=== PATIENT | female | born 1955 | race Caucasian/White ===

== ENCOUNTER 2017-12-13 21:56 | Emergency (ER) | payer OTHER, SELFPAY ==
[2017-12-13 22:13] VITALS: BP 160/105; PULSE 91; RESP 18; TEMP 36.6; O2SAT 95
--- NOTE | 2017-12-14 00:23 | ED_ITS ---
HPI - Abdominal Pain General Chief Complaint: Abdominal Pain Stated Complaint: Acute Abdominal Pain Time Seen by Provider: 12/14/17 00:15 Source: patient Mode of arrival: ambulatory Limitations: no limitations History of Present Illness HPI narrative: The patient is a 62-year-old female who presents with upper abdominal pain and right upper quadrant pain. She has been nauseated she has vomited 4 times. Pain is been ongoing since yesterday. No fever. Pain radiates around to her back on the right side. No diarrhea. She denies any chest pain. MD complaint: abdominal pain Related Data Home Medications Medication Instructions Recorded Confirmed [B COMPLEX] #0 02/25/16 [BIOTIN] #0 02/25/16 [CIMZIA] #0 02/25/16 [CRANBERRY] #0 02/25/16 [MILK THISTLE] #0 02/25/16 [OMEGA 3 6 9 ] #0 02/25/16 hydroxychloroquine [Plaquenil] 200 mg PO BID #0 02/25/16 leflunomide [Arava] 10 mg PO #0 02/25/16 levothyroxine [Synthroid] 125 mcg PO QAM #30 tab 02/25/16 loratadine 10 mg PO QDAY #0 tab 02/25/16 meloxicam [Mobic] 15 mg PO AMCC #30 tab 02/25/16 multivitamin [Multiple Vitamins] 1 tab PO QDAY #0 tab 02/25/16 omeprazole magnesium [Prilosec OTC] 20 mg PO #0 02/25/16 sulfasalazine 1,500 Q DAY #0 02/25/16 tramadol 50 mg PO QID #0 02/25/16 [cimzia] #0 03/21/17 [cranberry extract] #0 03/21/17 [milk thistle] #0 03/21/17 biotin #0 03/21/17 calcium carbonate-vitamin D3 1 sgl PO #0 03/21/17 [Calcium 600 with Vitamin D3] diclofenac sodium [Voltaren] 1 javy TOPICAL #0 03/21/17 estradiol [Yuvafem] 10 mcg VAGINAL #0 03/21/17 hydroxychloroquine 200 mg PO AMCC #0 03/21/17 leflunomide [Arava] 20 mg PO #0 03/21/17 levothyroxine [Synthroid] 0.125 mg PO QDAY #0 03/21/17 loratadine [Claritin] 10 mg PO QDAY #0 03/21/17 meloxicam 15 mg PO #0 03/21/17 multivitamin [Multiple Vitamins] 1 tab PO QDAY #0 03/21/17 omega 0-zon-nfl-fish oil [Omera] 1 ea PO #0 03/21/17 omeprazole 20 mg PO QDAY #0 03/21/17 simvastatin 20 mg PO HS #0 03/21/17 sulfasalazine [Azulfidine] #0 03/21/17 tramadol 0 mg PO Q6HP #0 03/21/17 vitamin B complex [B 1 tab PO QDAY #0 03/21/17 Complex-Vitamin B12] Previous Rx's Medication Instructions Recorded albuterol sulfate [Ventolin HFA] 2 puff INH QID #1 ea 04/02/17 levofloxacin [Levaquin] 750 mg PO QDAY #7 tab 04/02/17 Allergies Allergy/AdvReac Type Severity Reaction Status Date / Time methotrexate [METHOTREXATE] Allergy Unknown cough Verified 12/14/17 02:25 Review of Systems Review of Systems GENERAL: Denies chills, fatigue, malaise, fever, sweats, travel HEENT: Denies sinus pain, ear pain, sore throat, difficulty swallowing, neck pain RESPIRATORY: Denies dyspnea, cough, wheezing, hemoptysis, sputum. CARDIOVASCULAR: Denies chest pain, palpitations, orthopnea, edema GASTROINTESTINAL: See HPI : Denies dysuria, frequency, incontinence, hematuria, urinary retention, flank pain. MUSCULOSKELETAL: Denies weakness, joint pain, or bony pain SKIN: No rash, no erythema, no pruritus NEUROLOGIC: Denies weakness, dizziness, headache, numbness, change in speech, confusion PSYCHIATRIC: No concerning psychosocial issues. 12 point review of systems is negative except for those stated above and HPI PFSH Medical History Hypothyroid (Acute) Surgical History Status post breast reduction Status post hysterectomy Family History Brother Age: 65 Gout Brother Age: 64 Gout Brother Age: 62 Cancer Social History Smoking Status: Former smoker Exam Initial Vital Signs Initial Vital Signs: Vital Signs Temperature 97.8 F 12/13/17 22:13 Pulse Rate 91 H 12/13/17 22:13 Respiratory Rate 18 12/13/17 22:13 Blood Pressure 160/105 H 12/13/17 22:13 Pulse Oximetry 95 12/13/17 22:13 GENERAL: Appears in pain moaning HEENT: Head atraumatic,EOMI, pupils reactive, face symmetric, dry mucous membranes CARDIOVASCULAR: Regular rate and rhythm without murmurs, rubs or gallops. RESPIRATORY: Breath sounds equal bilaterally, no wheezes rales or rhonchi. ABDOMEN: Soft, tender epigastric area and right upper quadrant with positive Krishnan sign no guarding no rebound no lower abdominal pain. : No CVA tenderness EXTREMITIES: Normal range of motion, no clubbing or edema. Neurovascularly intact NEUROLOGICAL: Alert and oriented x4.Normal gait and speech. Cranial nerves II through XII grossly intact. SKIN: Warm, dry, no laceration, no petechiae, no rashes or lesions. Course Orders Ordered: ED Orders 12/14/17 00:02 Complete Blood Count AUTO DIFF Stat Comprehensive Metabolic Panel Stat Lipase Stat 12/14/17 00:24 US abdomen complete Stat 12/14/17 01:54 Urine Microscopic Stat Discontinued Medications Sodium Chloride (Normal Saline 0.9%) 1,000 mls @ 1,000 mls/hr IV CONT MARY Last Infusion: 12/14/17 01:30 Dose: 1,000 mls/hr Admin: 12/14/17 00:30 Dose: 1,000 mls/hr Sodium Chloride (Normal Saline 0.9%) 1,000 mls @ 200 mls/hr IV CONT MARY Last Admin: 12/14/17 02:15 Dose: 200 mls/hr Ketorolac Tromethamine (Toradol) 30 mg IV NOW ONE Stop: 12/14/17 00:24 Last Admin: 12/14/17 00:30 Dose: 30 mg Morphine Sulfate (Morphine) 2 mg IV NOW ONE Stop: 12/14/17 03:43 Last Admin: 12/14/17 03:45 Dose: 2 mg Ondansetron HCl (Zofran) 4 mg IV NOW ONE Stop: 12/14/17 00:24 Last Admin: 12/14/17 00:30 Dose: 4 mg Pantoprazole Sodium (Protonix) 40 mg IV NOW ONE Stop: 12/14/17 00:24 Last Admin: 12/14/17 00:32 Dose: 40 mg Consultations Consultation #1: Dr. Mijares, [facility] has been updated on symptoms and test results. Common bile duct normal in ultrasound however significantly elevated lipase. Patient will definitely need an ERCP. Time: 02:12 Consultation #2: [place] physician has been updated on test results symptoms in surgery recommendations of an ERCP. He has made arrangements for patient to be transferred to [place]. Dr. Atwood accepting physician Time: 02:38 Vital Signs - 8 hr 12/14/17 00:35 12/14/17 01:55 12/14/17 04:00 Pulse Rate 72 79 85 Respiratory Rate 18 12 25 H Blood Pressure [Left Arm] 176/85 H 167/94 H 154/89 H Pulse Oximetry 99 98 97 12/14/17 04:52 Pulse Rate 83 Respiratory Rate 12 Blood Pressure [Left Arm] 164/85 H Pulse Oximetry 98 MDM - Abdominal Pain Medical Records Attestation: I reviewed the patient's medical records. Lab Data Attestation: I reviewed the patient's lab results. Result diagrams: 12/14/17 00:02 12/14/17 00:02 Lab Results 12/14/17 12/14/17 12/14/17 Range/Units 00:02 00:02 01:54 WBC 8.1 (4.5-11.0) X10^3/uL RBC 4.57 (4.0-5.2) X10^6/uL Hgb 14.0 (12.0-16.0) g/dL Hct 41.4 (36-46) % MCV 90.8 (80-100) fL MCH 30.6 (26-34) PG MCHC 33.7 (30-36) % RDW 13.9 (11.6-14.8) % Plt Count 243 (150-400) X10^3/uL Neut % (Auto) 74.6 (50-75) % Lymph % (Auto) 17.5 L (25-40) % [place] % (Auto) 7.3 (3-14) % Eos % (Auto) 0.4 L (2-4) % Baso % (Auto) 0.2 (0-2) % Neut # (Auto) 6100 H (1406-8368) /uL Sodium 142 (137-145) mmol/L Potassium 3.3 L (3.4-5.1) mmol/L Chloride 104 (98-107) mmol/L Carbon Dioxide 27 (22-32) mmol/L BUN 10 (7-17) mg/dL Creatinine 0.70 (0.52-1.04) mg/dL Estimated GFR > 60.0 (>60) mL/min BUN/Creatinine Ratio 14.3 (6-22) Glucose 124 H (80-110) mg/dL Calcium 10.0 (8.4-10.2) mg/dL Total Bilirubin 2.3 H (0.2-1.3) mg/dL AST 277 H (14-36) IU/L ALT 230 H (9-52) IU/L Alkaline Phosphatase 122 (38-126) U/L Total Protein 7.7 (6.3-8.2) g/dL Albumin 4.6 (3.5-5.0) g/dL Globulin 3.1 (1.7-4.1) g/dL Albumin/Globulin Ratio 1.5 (1.0-2.8) Lipase 9093 H (23-300) U/L Urine RBC None seen (0-5/HPF) Urine WBC None seen (0-5/HPF) Ur Squamous Epith Cells 1-5 /hpf Urine Bacteria Occasional (0-1) (None) Ur Culture Indicated? Cult not indicated Micro UA Comment Not Reportable Point of care testing: Urine Dip Bedside Urine Glucose Negative Bedside Urine Bilirubin - Negative Bedside Urine Ketone +++ 80 Urine Specific [place] 1.015 Bedside Urine Occult Blood - Negative Bedside Urine pH 8.5 Bedside Urine Protein +/- 15 Bedside Urine Urobilinogen - Negative Bedside Urine Nitrite - Negative Bedside Urine Leukocytes - Negative Esterase Imaging Data US - abdomen: Radiologist's impression: Negative for report: Biliary system: Common bile duct diameter and upper normal range at 7 mm. Portal veins visualized segment patent. Gallbladder Size: Normal, stones present. Of gallbladder sludge. All wall thickness: Approximately 5 mm, thickened Pericholecystic fluid: None Sonographic Krishnan sign positive The pancreas: Not seen Impression: Cholelithiasis. Gallbladder wall thickening. Reportedly positive sonographic Krishnan sign. Please correlate with early cholecystitis. Hepatic steatosis a statistically versus other hepatocellular process. Pancreas not optimally seen. MDM Narrative Medical decision making narrative: Patient is afebrile without leukocytosis. However she does have elevated bilirubin and lipase suggestive of choledocholithiasis. Patient being transferred to [facility] for ERCP and further management. Discharge Plan Departure Patient Disposition: [facility] Clinical Impression: Choledocholithiasis Discharge Date/Time: 12/14/17 05:20 Interventions: ED Discharge Assessment Last Done: 12/14/17 05:19 Prescriptions: No Action leflunomide [Arava] 10 MG tablet 10 mg PO Qty: 0 RF: 0 [B COMPLEX] Qty: 0 RF: 0 [BIOTIN] Qty: 0 RF: 0 [CIMZIA] Qty: 0 RF: 0 [CRANBERRY] Qty: 0 RF: 0 loratadine 10 MG tablet 10 mg PO QDAY Qty: 0 RF: 0 multivitamin [Multiple Vitamins] 1 EACH tablet 1 tab PO QDAY Qty: 0 RF: 0 meloxicam [Mobic] 15 MG tablet 15 mg PO AMCC Qty: 30 RF: 0 [MILK THISTLE] Qty: 0 RF: 0 [OMEGA 3 6 9 ] Qty: 0 RF: 0 sulfasalazine 500 MG tablet 1,500 Q DAY Qty: 0 RF: 0 hydroxychloroquine [Plaquenil] 200 MG tablet 200 mg PO BID Qty: 0 RF: 0 omeprazole magnesium [Prilosec OTC] 20 MG tablet,delayed release (DR/EC) 20 mg PO Qty: 0 RF: 0 tramadol 50 MG tablet 50 mg PO QID Qty: 0 RF: 0 levothyroxine [Synthroid] 125 MCG tablet 125 mcg PO QAM Qty: 30 RF: 0 vitamin B complex [B Complex-Vitamin B12] 1 EACH tablet 1 tab PO QDAY Qty: 0 RF: 0 biotin 2,500 MCG capsule Qty: 0 RF: 0 calcium carbonate-vitamin D3 [Calcium 600 with Vitamin D3] 600 MG/200 IU capsule 1 sgl PO Qty: 0 RF: 0 [cimzia] Qty: 0 RF: 0 hydroxychloroquine 200 MG tablet 200 mg PO AMCC Qty: 0 RF: 0 diclofenac sodium [Voltaren] 1 % gel 1 javy Topical Qty: 0 RF: 0 [cranberry extract] Qty: 0 RF: 0 leflunomide [Arava] 20 MG tablet 20 mg PO Qty: 0 RF: 0 levothyroxine [Synthroid] 125 MCG tablet 0.125 mg PO QDAY Qty: 0 RF: 0 loratadine [Claritin] 10 MG tablet 10 mg PO QDAY Qty: 0 RF: 0 multivitamin [Multiple Vitamins] 1 EACH tablet 1 tab PO QDAY Qty: 0 RF: 0 meloxicam 15 MG tablet 15 mg PO Qty: 0 RF: 0 omega 4-xoa-onu-fish oil [Omera] 1 EACH capsule 1 ea PO Qty: 0 RF: 0 [milk thistle] Qty: 0 RF: 0 sulfasalazine [Azulfidine] 500 MG tablet Qty: 0 RF: 0 simvastatin 20 MG tablet 20 mg PO HS Qty: 0 RF: 0 omeprazole 20 MG capsule,delayed release(DR/EC) 20 mg PO QDAY Qty: 0 RF: 0 tramadol 50 MG tablet PO Q6HP Qty: 0 RF: 0 estradiol [Yuvafem] 10 MCG tablet 10 mcg Vaginal Qty: 0 RF: 0 albuterol sulfate [Ventolin HFA] 90 MCG/PUFF HFA aerosol inhaler 2 puff INH QID Qty: 1 RF: 0 levofloxacin [Levaquin] 750 MG tablet 750 mg PO QDAY Qty: 7 RF: 0
--- NOTE | 2017-12-14 00:24 | DI.US.S_ITS ---
PROCEDURE: US ABDOMEN COMPLETE INDICATIONS: ruq pain TECHNIQUE: Real-time scanning was performed of the abdominal and retroperitoneal organs, with image documentation. COMPARISON: None. FINDINGS: Preliminary report by shift production associate radiology Liver: Liver is normal in size and homogeneous in echotexture. Gallbladder: Gallbladder contains dependent stones including a 1 cm stone in the gallbladder neck that does not move. Gallbladder wall is thickened at 5 mm. A positive Krishnan sign is reported. No pericholecystic free fluid. Biliary ducts: Intrahepatic bile ducts are non-dilated. Extrahepatic bile duct caliber measures 7 mm. Normal is 6-7 mm or less in diameter, or 10 mm or less post-cholecystectomy. Pancreas: Visualized portions of the pancreas are sonographically normal. The tail is obscured. Spleen: Spleen is normal in size and homogeneous in echotexture. Kidneys: Kidneys are normal in size and echotexture. Right kidney measures 11.1 cm long; left kidney measures 11.6 cm long. No hydronephrosis or nephrolithiasis. No solid masses. Aorta: Mid and distal aorta are obscured by bowel gas Iliacs: Iliac vessels are obscured by bowel gas IVC: Not visualized Miscellaneous: No free abdominal fluid. IMPRESSION: 1. Cholelithiasis with probable impacted stone in the gallbladder neck with findings suspect for cholecystitis, clinical correlation recommended. 2. Considerable bowel gas obscures the tail of pancreas, aorta and iliac vessels and IVC. Findings are concordant with the preliminary report. Dictated by: César Funes M.D. on 12/14/2017 at 8:22 Approved by: César Funes M.D. on 12/14/2017 at 8:27
[2017-12-14] MEDS: KETOROLAC 60 MG/2 ML VIAL 30 MG IV (00:30)
[2017-12-14] MEDS: ONDANSETRON 4 MG/2 ML INJ IV (00:30)
[2017-12-14] MEDS: SODIUM CHLORIDE 0.9% 1,000 ML 1000 ML IV (00:30)
[2017-12-14] MEDS: PANTOPRAZOLE 40 MG VIAL IV (00:32)
[2017-12-14 00:35] VITALS: BP 176/85; PULSE 72; RESP 18; O2SAT 99
[2017-12-14 00:35] LABS: Alanine Aminotransferase 230 IU/L (9-52); Albumin 4.6 g/dL (3.5-5.0); Albumin Globulin Ratio 1.5 (1.0-2.8); Alkaline Phosphatase 122 U/L (38-126); Aspartate Aminotransferase 277 IU/L (14-36); BUN Creatinine Ratio 14.3 (6-22); Bilirubin Total 2.3 mg/dL (0.2-1.3); Blood Urea Nitrogen 10 mg/dL (7-17); Carbon Dioxide 27 mmol/L (22-32); Chloride 104 mmol/L (98-107); Estimated Glomerular Filt Rate > 60.0 mL/min (>60); Globulin 3.1 g/dL (1.7-4.1); Glucose 124 mg/dL (80-110); HEMOLYSIS < 15 (0-50); Potassium 3.3 mmol/L (3.4-5.1); Sodium 142 mmol/L (137-145); Total Protein 7.7 g/dL (6.3-8.2)
[2017-12-14 00:37] LABS: Add Manual Diff / Slide Review NO; Basophils Percent Auto 0.2 % (0-2); Eosinophils Percent Auto 0.4 % (2-4); Hematocrit 41.4 % (36-46); Lymphocytes Percent Auto 17.5 % (25-40); Mean Corpuscular HGB Conc 33.7 % (30-36); Mean Corpuscular Hemoglobin 30.6 PG (26-34); Mean Corpuscular Volume 90.8 fL (80-100); Monocytes Percent Auto 7.3 % (3-14); Neutrophils Absolute Auto 6100 /uL (3000-5900); Neutrophils Percent Auto 74.6 % (50-75); Platelet Count 243 X10^3/uL (150-400); Red Blood Cell Count 4.57 X10^6/uL (4.0-5.2); Red Cell Distribution Width 13.9 % (11.6-14.8); White Blood Cell Count 8.1 X10^3/uL (4.5-11.0)
[2017-12-14 00:54] LABS: Lipase 9093 U/L (23-300)
[2017-12-14 01:55] VITALS: BP 167/94; PULSE 79; RESP 12; O2SAT 98
[2017-12-14] MEDS: SODIUM CHLORIDE 0.9% 1,000 ML 200 ML IV (02:15)
[2017-12-14 02:47] LABS: RBC Urine None Seen (0-5/HPF); WBC Urine None Seen (0-5/HPF)
[2017-12-14 03:01] LABS: Bacteria Urine Occasional (0-1); Squamous Epithelial Cell Urine 1-5 /HPF
[2017-12-14 03:02] LABS: Culture Indicated Urine Cult Not Indicated
[2017-12-14] MEDS: MORPHINE 2 MG/ML INJ IV (03:45)
[2017-12-14 04:00] VITALS: BP 154/89; PULSE 85; RESP 25; O2SAT 97
[2017-12-14 04:52] VITALS: BP 164/85; PULSE 83; RESP 12; O2SAT 98
== END 2017-12-14 05:20 | disposition short-term general hospital (02) ==
PROVIDERS: Emergency Provider Emergency Medicine; Family Provider Family Medicine; PCP Family Medicine
DX: K80.50 Calculus of bile duct without cholangitis or cholecystitis without obstruction (principal)
CPT/HCPCS: 76700; 80053; 81003; 81015; 83690; 85025; 96361; 96374; 96375; 99283; 99284; C9113; J1885; J2270; J2405

== ENCOUNTER → 2018-09-11 10:30 | Outpatient (CLI) | payer OTHER, SELFPAY ==
--- NOTE | 2018-09-11 10:36 | DI.CT.S_ITS ---
PROCEDURE: CT CHEST W CON INDICATIONS: LUNG NODULES TECHNIQUE: After the administration of intravenous contrast, 5 mm thick sections acquired from the pulmonary apices to the posterior costophrenic angles. 7 mm thick coronal and sagittal MIP reformats were acquired. For radiation dose reduction, the following was used: automated exposure control, adjustment of mA and/or kV according to patient size. COMPARISON: [facility], CT, THORAX WITH CONTRAST, 07/06/2017, 10:39. [facility], US, US ABDOMEN COMPLETE, 12/14/2017, 1:00. FINDINGS: Image quality: Excellent. Lungs and pleura: The previously described left upper lobe groundglass opacity is not seen on the current study. On the 2018 CT examination, there is a mild degree of atelectasis seen involving the posterior left upper lobe, which is no longer seen. No acute air space opacities. No pleural effusions or pneumothorax. Central and peripheral airways are patent and normal in caliber. Mediastinum: A prominent right pericardial fat pad is again noted. Heart size is normal. No pericardial effusion. No mediastinal or hilar adenopathy by size criteria. Thoracic aorta and central pulmonary arteries are normal in size. Esophagus is normal in caliber. No hiatal hernia. Bones and chest wall: No suspicious bony lesions. No vertebral body compression fractures. No axillary or supraclavicular adenopathy by size criteria. Thyroid gland demonstrates no significant CT abnormality. Abdomen: Cholecystectomy clips are seen. Visualized upper abdominal solid organs appear normal. Upper abdominal bowel loops are normal in caliber. IMPRESSION: Resolution of the previously seen left upper lobe groundglass opacity. Improved atelectasis within the left upper lobe. Incidental note is made of: Prominent right pericardial fat pad Cholecystectomy Dictated by: Efraín Saavedra M.D. on 09/11/2018 at 11:19 Approved by: Efraín Saavedra M.D. on 09/11/2018 at 11:22
== END ==
PROVIDERS: PCP Family Medicine; Visit Provider Internal Medicine Pulmonary Disease
DX: R91.8 Other nonspecific abnormal finding of lung field (principal); J98.11 Atelectasis; Z90.49 Acquired absence of other specified parts of digestive tract
CPT/HCPCS: 71260; Q9967

== ENCOUNTER → 2020-08-25 09:28 | Outpatient (CLI) | payer OTHER, SELFPAY ==
[2020-08-25] MEDS: COVID-19 VACC #1, MRNA(MOD) 100 MCG/0.5 ML VIAL IM (09:35)
== END ==
PROVIDERS: PCP Family Medicine; Visit Provider Internal Medicine
DX: Z23 Encounter for immunization (principal)
CPT/HCPCS: 0011A; 91301

== ENCOUNTER → 2020-09-22 14:07 | Outpatient (CLI) | payer OTHER, SELFPAY ==
[2020-09-22] MEDS: COVID-19 VACC #2, MRNA(MOD) 100 MCG/0.5 ML VIAL IM (14:12)
== END ==
PROVIDERS: PCP Family Medicine; Visit Provider Internal Medicine
DX: Z23 Encounter for immunization (principal)
CPT/HCPCS: 0012A; 91301

== ENCOUNTER → 2021-03-10 11:10 | Outpatient (CLI) | payer OTHER, SELFPAY ==
--- NOTE | 2021-03-10 | DI.RAD.S_ITS ---
PROCEDURE: XR DEXA AXIAL SKELETON INDICATIONS: Encounter for screening for osteoporosis COMPARISON: None. FINDINGS: This blank DEXA report has been sent in error by the PACS system. The correct and complete report will be forthcoming in 1-2 days. Thank you for your patience and understanding. Dictated by: Savanna Narayanan MD, PhD on 03/10/2021 at 12:46 Approved by: Savanna Narayanan MD, PhD on 03/10/2021 at 12:46
== END ==
PROVIDERS: PCP Internal Medicine; Referring Provider Internal Medicine; Visit Provider Internal Medicine
DX: Z13.820 Encounter for screening for osteoporosis (principal); Z78.0 Asymptomatic menopausal state; M06.9 Rheumatoid arthritis, unspecified; Z87.891 Personal history of nicotine dependence
CPT/HCPCS: 77080

== ENCOUNTER → 2021-04-01 08:15 | Outpatient (CLI) | payer OTHER, SELFPAY ==
[2021-04-01 09:03] LABS: COVID19 -Nasal RAPID Negative (Negative)
== END ==
PROVIDERS: PCP Internal Medicine; Visit Provider Physician Assistant
DX: Z20.822 Contact with and (suspected) exposure to COVID-19 (principal)
CPT/HCPCS: 87635

== ENCOUNTER → 2022-04-19 17:22 | Outpatient (CLI) | payer OTHER, MEDICARE, SELFPAY ==
--- NOTE | 2022-04-19 17:37 | DI.RAD.S_ITS ---
PROCEDURE: XR FOOT RT MIN 3V INDICATIONS: right foot injury TECHNIQUE: Three views of the foot were acquired. COMPARISON: None. FINDINGS: Bones: No fractures or dislocations. Degenerative change 1st MTP. Moderate plantar calcaneal spur. No osteophyte fracture No suspicious bony lesions. Soft tissues: No tibiotalar joint effusion. Achilles tendon appears normal. IMPRESSION: Intact right foot with degenerative change at the 1st MTP. Dictated by: Tiffany Staley M.D. on 04/19/2022 at 19:18 Approved by: Tiffany Staley M.D. on 04/19/2022 at 19:18
== END ==
PROVIDERS: PCP Internal Medicine; Referring Provider Nurse Practitioner Family; Visit Provider Nurse Practitioner Family
DX: S99.921A Unspecified injury of right foot, initial encounter (principal); X58.XXXA Exposure to other specified factors, initial encounter
CPT/HCPCS: 73630

== ENCOUNTER → 2022-11-06 16:02 | Outpatient (CLI) | payer OTHER, SELFPAY ==
--- NOTE | 2022-11-06 16:03 | DI.MRI.S_ITS ---
PROCEDURE: MR HAND RT WO CON INDICATIONS: RIGHT HAND PAIN TECHNIQUE: Noncontrast coronal T1 spin echo and T2 fast spin echo with fat saturation, axial proton density fast spin echo and T2 fast spin echo with fat saturation, sagittal T1 spin echo and STIR through the hand and fingers. COMPARISON: [facility], CR, XR HAND 3VW RT, 01/26/2016, 9:55. FINDINGS: Image quality: Excellent. Bones: No acute trabecular bone injury or fracture. Multiple small well-defined foci of [id number] signal with associated [id number] signal are seen throughout the carpal bones and radial styloid, and at the 1st metacarpal base and 3rd metacarpal head, which could represent small chronic erosions. No acute osteitis is seen. Moderate arthritic changes are seen at the 1st carpometacarpal joint and there are mild arthritic changes at the 1st metacarpophalangeal joint and throughout the interphalangeal joints of the fingers. Soft tissues: Visualized muscles demonstrate normal bulk and internal signal. No intramuscular masses identified. A thin lobular ganglion cyst at the volar radial aspect of the radiocarpal joint measures up to 20 x 7 x 7 mm. Small amount of fluid is seen in the distal radioulnar joint. Otherwise, no significant joint effusion or synovial hypertrophy is seen. Mild tenosynovitis is seen involving the extensor carpi ulnaris tendon as well as the extensor carpi radialis brevis and longus tendons. The flexor and extensor tendons in the hand appear to be intact. IMPRESSION: 1. Multiple small well-demarcated foci of abnormal signal in the wrist and the 3rd metacarpal head are nonspecific but may represent chronic osseous erosions. No definite active erosion or acute osteitis is seen. No significant joint effusion is seen. 2. Mild tenosynovitis of the 2nd and 6th extensor compartment tendons in the wrist. 3. Lobular ganglion cyst is noted at the volar radial aspect of the wrist. Approved by: Vin Arambula M.D. on 11/07/2022 at 10:06
== END ==
PROVIDERS: PCP Internal Medicine; Referring Provider Internal Medicine; Visit Provider Internal Medicine
DX: M65.841 Other synovitis and tenosynovitis, right hand (principal); M67.431 Ganglion, right wrist; M79.641 Pain in right hand
CPT/HCPCS: 73218

== ENCOUNTER → 2023-04-04 11:25 | Outpatient (CLI) | payer OTHER, SELFPAY | PROVIDERS: Family Provider Internal Medicine; PCP Internal Medicine; Visit Provider Physician Assistant | DX: R30.0 Dysuria (principal) | CPT/HCPCS: 87086 ==

== ENCOUNTER 2023-04-06 17:49 | Emergency (ER) | payer OTHER, SELFPAY ==
[2023-04-06] VITALS (9 sets, daily range): BP systolic 163–227; BP diastolic 83–102; PULSE 55–83; RESP 14–22; TEMP 36.7; O2SAT 95–98; BMI 37.8
--- NOTE | 2023-04-06 18:14 | DI.RAD.S_ITS ---
PROCEDURE: XR CHEST 1V INDICATIONS: chest pain TECHNIQUE: One view of the chest was acquired. COMPARISON: , CR, XR CHEST 2 VIEWS, 11/26/2022, 11:57. [facility], CR, CHEST 2 VIEW, 04/02/2017, 13:24. FINDINGS: Surgical changes and devices: None. Lungs and pleura: Patchy right basilar opacity. Mediastinum: Mediastinal contours appear normal. Heart size is normal. Bones and chest wall: No suspicious bony lesions. Overlying soft tissues appear unremarkable. IMPRESSION: Persistent right basilar opacity. CT chest is recommended for further evaluation. Dictated by: Concepción Lara M.D. on 04/06/2023 at 19:00 Approved by: Concepción Lara M.D. on 04/06/2023 at 19:02
[2023-04-06 18:33] LABS: Add Manual Diff / Slide Review NO; Basophils Absolute Auto 0 /uL (0-100); Basophils Percent Auto 0.4 % (0-2); Eosinophils Absolute Auto 200 /uL (0-450); Eosinophils Percent Auto 2.4 % (2-4); Hematocrit 44.6 % (36-46); Hemoglobin 14.9 g/dL (12.0-16.0); Lymphocytes Absolute Auto 3100 /uL (1100-4500); Lymphocytes Percent Auto 37.2 % (25-40); Mean Corpuscular HGB Conc 33.4 % (30-36); Mean Corpuscular Hemoglobin 30.3 PG (26-34); Mean Corpuscular Volume 90.8 fL (80-100); Monocytes Absolute Auto 600 /uL (0-900); Monocytes Percent Auto 7.6 % (3-14); Neutrophils Absolute Auto 4400 /uL (1500-7000); Neutrophils Percent Auto 52.4 % (50-75); Platelet Count 242 X10^3/uL (150-400); Red Blood Cell Count 4.91 X10^6/uL (4.0-5.2); Red Cell Distribution Width 13.7 % (11.6-14.8); White Blood Cell Count 8.3 X10^3/uL (4.5-11.0)
[2023-04-06 18:37] LABS: INR 0.9 (0.9-1.3); Prothrombin Time 10.4 SECONDS (10.1-12.7)
[2023-04-06 18:40] LABS: PTT Partial Thromboplastin Tim 29 SECONDS (26-36)
[2023-04-06 18:42] LABS: Alanine Aminotransferase 66 IU/L (<35); Albumin 4.4 g/dL (3.5-5.0); Albumin Globulin Ratio 1.5 (1.0-2.8); Alkaline Phosphatase 90 U/L (38-126); Aspartate Aminotransferase 47 IU/L (14-36); BUN Creatinine Ratio 21.1 (6-22); Bilirubin Total 0.6 mg/dL (0.2-1.3); Blood Urea Nitrogen 15 mg/dL (7-17); Calcium 10.4 mg/dL (8.4-10.2); Carbon Dioxide 29 mmol/L (22-32); Chloride 104 mmol/L (98-107); Creatine Kinase 61 U/L (30-135); Estimated Glomerular Filt Rate > 60 mL/min (>60); Glucose 103 mg/dL (80-110); HEMOLYSIS < 15 (0-50); Lipase 111 U/L (23-300); Magnesium 2.1 mg/dL (1.6-2.3); Potassium 4.1 mmol/L (3.4-5.1); Sodium 139 mmol/L (137-145); Total Protein 7.4 g/dL (6.3-8.2)
[2023-04-06 18:53] LABS: Troponin I < 0.012 ng/mL (0.01-0.034)
--- NOTE | 2023-04-06 19:33 | ED.GENADULT ---
HPI - General Adult General Chief complaint: Hypertension Stated complaint: Head ache left side ache BP 170/100 Time Seen by Provider: 04/06/23 19:33 Source: patient Mode of arrival: Ambulatory History of Present Illness HPI narrative: Patient with chronic rheumatoid arthritis on biologic therapy comes to the ED with 2 weeks of right upper quadrant pain. She says it is quite reminiscent of her previous gallbladder pain but she had a cholecystectomy about 2 years ago. She is no trauma that she can think of. She is not had fever nor does she feel ill she just has very significant right upper quadrant pain that seems to be getting worse and worse over the past 2 weeks. She is noticed that her blood pressure is quite high today and that is causing a headache as far she can tell. No nausea vomiting or diarrhea. A little bit of dysuria yesterday but she says she had an outpatient UA that was normal. No diarrhea. No cough or chest symptoms otherwise. No cardiac disease. Related Data Home Medications Medication Instructions Recorded Confirmed [B COMPLEX] ##0 02/25/16 04/04/23 [BIOTIN] ##0 02/25/16 04/04/23 [CIMZIA] ##0 02/25/16 04/04/23 [CRANBERRY] ##0 02/25/16 04/04/23 [MILK THISTLE] ##0 02/25/16 04/04/23 [OMEGA 3 6 9 ] ##0 02/25/16 04/04/23 hydroxychloroquine 200 mg tablet 200 mg PO BID ##0 02/25/16 04/04/23 (Plaquenil) leflunomide 10 mg tablet (Arava) 10 mg PO ##0 02/25/16 04/04/23 levothyroxine 125 mcg tablet 125 mcg PO QAM #30 tabs 02/25/16 04/04/23 (Synthroid) loratadine 10 mg tablet 10 mg PO QDAY #0 tabs 02/25/16 04/04/23 meloxicam 15 mg tablet (Mobic) 15 mg PO AMCC #30 tabs 02/25/16 04/04/23 multivitamin (Multiple Vitamins 1 tab PO QDAY #0 tabs 02/25/16 04/04/23 tablet) omeprazole magnesium 20 mg 20 mg PO ##0 10/07/16 11/15/23 tablet,delayed release (Prilosec OTC) sulfasalazine 500 mg tablet 1,500 Q DAY ##0 02/25/16 04/04/23 tramadol 50 mg tablet 50 mg PO QID ##0 02/25/16 04/04/23 [cimzia] ##0 03/21/17 04/04/23 [cranberry extract] ##0 03/21/17 04/04/23 [milk thistle] ##0 03/21/17 04/04/23 biotin 2,500 mcg capsule ##0 03/21/17 04/04/23 calcium carbonate 600 mg-vitamin 1 sgl PO ##0 03/21/17 04/04/23 D3 10 mcg (400 unit) capsule (Calcium 600 with Vitamin D3) diclofenac sodium 1 % topical gel 1 javy topical ##0 03/21/17 04/04/23 (Voltaren) estradiol 10 mcg vaginal tablet 10 mcg vaginal ##0 03/21/17 04/04/23 (Yuvafem) hydroxychloroquine 200 mg tablet 200 mg PO AMCC ##0 03/21/17 04/04/23 leflunomide 20 mg tablet (Arava) 20 mg PO ##0 03/21/17 04/04/23 levothyroxine 125 mcg tablet 0.125 mg PO QDAY ##0 03/21/17 04/04/23 (Synthroid) loratadine 10 mg tablet (Claritin) 10 mg PO QDAY ##0 03/21/17 04/04/23 meloxicam 15 mg tablet 15 mg PO ##0 03/21/17 04/04/23 multivitamin (Multiple Vitamins 1 tab PO QDAY ##0 03/21/17 04/04/23 tablet) omega 3-dha 300 mg-epa 400 mg-fish 1 ea PO ##0 03/21/17 04/04/23 oil 1,000 mg capsule (Omera) omeprazole 20 mg capsule,delayed 20 mg PO QDAY ##0 03/21/17 04/04/23 release simvastatin 20 mg tablet 20 mg PO HS ##0 03/21/17 04/04/23 sulfasalazine 500 mg tablet ##0 03/21/17 04/04/23 (Azulfidine) tramadol 50 mg tablet 0 mg PO Q6HP ##0 03/21/17 04/04/23 vitamin B complex (B 1 tab PO QDAY ##0 03/21/17 04/04/23 Complex-Vitamin B12 tablet) Previous Rx's Medication Instructions Recorded albuterol sulfate 90 mcg/actuation 2 puff INH QID #1 ea 04/02/17 aerosol inhaler (Ventolin HFA) levofloxacin 750 mg tablet 750 mg PO QDAY #7 tabs 04/02/17 (Levaquin) morphine 15 mg immediate release 15 mg PO Q4H #14 tabs 04/06/23 tablet naloxone 4 mg/actuation nasal 4 mg intranasal Q2M #2 ea 04/06/23 spray (Narcan) Allergies Allergy/AdvReac Type Severity Reaction Status Date / Time methotrexate [METHOTREXATE] Allergy Unknown cough Verified 04/06/23 18:14 aspirin [From Percodan] AdvReac Hallucinati Verified 04/06/23 18:14 ng oxycodone [From Percodan] AdvReac Hallucinati Verified 04/06/23 18:14 ng Patient History Medical History (Updated 04/06/23 @ 21:43 by Diomedes Drake MD) URI (upper respiratory infection) Hypothyroid Surgical History (Updated 09/18/17 @ 06:11 by Karen Patel DO) Status post hysterectomy Status post breast reduction Family History (Updated 02/24/16 @ 00:00 by Conversion Provider) Brother Age: 71 Gout Brother Age: 70 Gout Brother Age: 68 Cancer Social History Smoking Status: Former smoker Smoking Status: Former smoker alcohol intake frequency: 0-2 drinks per day Substance Use Type: marijuana Exam Narrative Exam Narrative: GENERAL: Alert, cooperative and in no distress. HEAD: Atraumatic. Normocephalic. EYES: Sclera are clear without icterus. Extraocular movements are full. ENT: No rhinorrhea. Oropharynx is moist. Mouth exam is benign. NECK: Supple. Full range of motion. CARDIOVASCULAR: Normal rate and rhythm without murmur gallop or rub. RESPIRATORY: Clear to auscultation. Breath sounds equal bilaterally. No wheezes, rales, or rhonchi. GASTROINTESTINAL: Abdomen soft, tenderness in the right upper quadrant. She is also tender over the ribs at the lower edge of the costal margin. No guarding or mass. EXTREMITIES: No edema, full range of motion. No obvious trauma. BACK: Normal inspection, no CVA tenderness. NEURO: Nonfocal examination, normal speech SKIN: No rash or erythema of visible areas PSYCH: Normally oriented. Normal range of affect. Appropriate behavior Initial Vital Signs Initial Vital Signs: Vital Signs Temperature 98.1 F 04/06/23 18:07 Pulse Rate 76 04/06/23 18:07 Respiratory Rate 18 04/06/23 18:07 Blood Pressure 227/102 H 04/06/23 18:07 Pulse Oximetry 98 04/06/23 18:07 Oxygen Delivery Method Room Air 04/06/23 18:07 Course Course Course Narrative: Workup is negative and reassuring to this point. 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 This may be causing her pain if it is subacute and development though typically these are congenital. In any case no other objective abnormality seen in the abdomen. She clearly has significant right upper quadrant tenderness and pain. I believe that her headache and hypertension are related to this pain here. No head trauma. No hard neurologic findings. I think symptomatic therapy and outpatient follow-up her safe and appropriate this point. Orders Ordered: ED Orders 04/06/23 18:14 XR chest 1V Stat 04/06/23 18:20 Complete Blood Count AUTO DIFF Stat Comprehensive Metabolic Panel Stat Lipase Stat Magnesium Stat PTT Partial Thromboplastin Dajuan Stat Prothrombin Time INR Stat Troponin & CK Cardiac Panel Stat 04/06/23 18:24 EKG-12 Lead Stat 04/06/23 19:42 CT chest abd pel w con Stat Discontinued Medications Acetaminophen (Acetaminophen 325 Mg Tablet) 975 mg PO NOW ONE Stop: 04/06/23 19:43 Last Admin: 04/06/23 19:56 Dose: 975 mg Documented By: TRACEY Hydromorphone HCl (Hydromorphone 1 Mg Inj) 1 mg IV NOW ONE Stop: 04/06/23 19:43 Last Admin: 04/06/23 19:51 Dose: 1 mg Documented By: TRACEY Sodium Chloride (Normal Saline 0.9%) 1,000 mls @ 1,000 mls/hr IV BOLUS ONE Stop: 04/06/23 20:41 Last Infusion: 04/06/23 21:08 Dose: Infused Documented By: Admin: 04/06/23 19:57 Dose: 1,000 mls/hr Documented By: TRACEY Ondansetron HCl (Ondansetron 4 Mg/2 Ml Inj) 4 mg IV NOW ONE Stop: 04/06/23 20:17 Last Admin: 04/06/23 20:18 Dose: 4 mg Documented By: SB Oxycodone HCl (Oxycodone Er 10 Mg Tab) 10 mg PO NOW ONE Stop: 04/06/23 21:38 Vital Signs Vital signs: Vital Signs - 8 hr 04/06/23 18:07 04/06/23 18:49 04/06/23 18:52 Temperature 98.1 F Pulse Rate 76 83 68 Respiratory Rate 18 21 Blood Pressure 227/102 H Pulse Oximetry 98 95 98 Oxygen Delivery Method Room Air 04/06/23 18:52 04/06/23 19:00 04/06/23 19:00 Temperature Pulse Rate 68 Respiratory Rate 22 Blood Pressure 195/97 H 197/92 H Pulse Oximetry 98 Oxygen Delivery Method 04/06/23 19:30 04/06/23 19:30 04/06/23 19:40 Temperature Pulse Rate 72 55 L Respiratory Rate 14 Blood Pressure 215/93 H Pulse Oximetry 98 98 Oxygen Delivery Method Room Air 04/06/23 20:31 04/06/23 20:32 Temperature Pulse Rate 66 Respiratory Rate 20 Blood Pressure 182/90 H Pulse Oximetry 96 Oxygen Delivery Method Room Air Medical Decision Making Lab Data 04/06/23 18:20 04/06/23 18:20 Labs: Lab Results 04/06/23 Range/Units 18:20 WBC 8.3 (4.5-11.0) X10^3/uL RBC 4.91 (4.0-5.2) X10^6/uL Hgb 14.9 (12.0-16.0) g/dL Hct 44.6 (36-46) % MCV 90.8 (80-100) fL MCH 30.3 (26-34) PG MCHC 33.4 (30-36) % RDW 13.7 (11.6-14.8) % Plt Count 242 (150-400) X10^3/uL Neut % (Auto) 52.4 (50-75) % Lymph % (Auto) 37.2 (25-40) % [place] % (Auto) 7.6 (3-14) % Eos % (Auto) 2.4 (2-4) % Baso % (Auto) 0.4 (0-2) % Neut # (Auto) 4400 (9986-8709) /uL Lymph # (Auto) 3100 (9590-7161) /uL [place] # (Auto) 600 (0-900) /uL Eos # (Auto) 200 (0-450) /uL Baso # (Auto) 0 (0-100) /uL PT 10.4 (10.1-12.7) SECONDS INR 0.9 (0.9-1.3) APTT 29 (26-36) SECONDS Sodium 139 (137-145) mmol/L Potassium 4.1 (3.4-5.1) mmol/L Chloride 104 (98-107) mmol/L Carbon Dioxide 29 (22-32) mmol/L BUN 15 (7-17) mg/dL Creatinine 0.71 (0.52-1.04) mg/dL Estimated GFR > 60 (>60) mL/min BUN/Creatinine Ratio 21.1 (6-22) Glucose 103 (80-110) mg/dL Calcium 10.4 H (8.4-10.2) mg/dL Magnesium 2.1 (1.6-2.3) mg/dL Total Bilirubin 0.6 (0.2-1.3) mg/dL AST 47 H (14-36) IU/L ALT 66 H (<35) IU/L Alkaline Phosphatase 90 (38-126) U/L Total Creatine Kinase 61 (30-135) U/L Troponin I < 0.012 (0.01-0.034) ng/mL Total Protein 7.4 (6.3-8.2) g/dL Albumin 4.4 (3.5-5.0) g/dL Globulin 3.0 (1.7-4.1) g/dL Albumin/Globulin Ratio 1.5 (1.0-2.8) Lipase 111 (23-300) U/L Urine Dip Bedside Urine Glucose Negative Bedside Urine Bilirubin - Negative Bedside Urine Ketone - Negative Urine Specific [place] 1.010 Bedside Urine Occult Blood - Negative Bedside Urine pH 6.0 Bedside Urine Protein - Negative Bedside Urine Urobilinogen - Negative Bedside Urine Nitrite - Negative Bedside Urine Leukocytes - Negative Esterase Point of care testing: Urine Dip Bedside Urine Glucose Negative Bedside Urine Bilirubin - Negative Bedside Urine Ketone - Negative Urine Specific [place] 1.010 Bedside Urine Occult Blood - Negative Bedside Urine pH 6.0 Bedside Urine Protein - Negative Bedside Urine Urobilinogen - Negative Bedside Urine Nitrite - Negative Bedside Urine Leukocytes - Negative Esterase ECG Data Interpretation: ECG obtained at 6:24 p.m. shows sinus rhythm at 74. Nonspecific STT wave abnormalities MDM Narrative Medical decision making narrative: Patient with a remote history of cholecystectomy who now presents with 2 weeks of right upper quadrant pain with an abnormal chest x-ray in the right base. ECG is reassuring as are lab tests with minimal elevation in transaminase values which are markedly improved from previous. No lipase elevation. Will treat pain and a CT with contrast of the chest abdomen and pelvis because of the chest x-ray abnormality. The pain is clearly reproducible to palpate. I think coronary ischemia is essentially excluded. Headache persists and she is still somewhat hypertensive. Pain is improved. I recommend symptomatic therapy for the right upper quadrant pain for which no specific etiology as yet identified. I recommend close outpatient follow-up. Careful return precautions given. Discharge Plan Departure Patient Disposition: Home Clinical Impression: Hypertension, Headache, Abdominal pain Instructions: DI for High Blood Pressure, DI for Abdominal Pain-Adult Activity Restrictions/Additional Instructions: No immediately dangerous cause for her abdominal pain is identified. You have a Morgagni hernia in the right upper quadrant. This is usually congenital (meaning present from ). It may in fact have nothing to do with pain that you have now. However, this is exactly where your pain is as I examine you. I recommend follow-up with your primary care doctor to discuss this to see if there is any further investigation you would like to accomplish. Follow-up right away for fever, repeated vomiting, any new neurologic symptoms such as weakness or speech difficulty or difficulty walking. I think that the headache and high blood pressure are related to the pain. I do not suspect stroke. I recommend Tylenol 1000 mg taken together with ibuprofen 600 mg every 6 hours. We did give you 1 strong pain pills that she would last most of the night here. I have prescribed some stronger pain medicine to take in addition to the Tylenol and ibuprofen. You can take the stronger pain medicine as frequently as every 4 hours but it should be the last thing to add onto the combination of medicines and the 1st thing you take away. This medicine is very sedating and should not be taken with other sedatives such as alcohol or sleep aids. In very commonly causes constipation so I recommend you do something proactive to prevent that. Prescriptions: New morphine 15 mg tablet 15 mg PO Q4H Qty: 14 0RF naloxone [Narcan] 4 mg/actuation spray,non-aerosol 4 mg intranasal Q2M Qty: 2 0RF Rx Instructions: spray 1 dose into ONE nostril; alternate nostrils w each dose until help arrives No Action leflunomide [Arava] 10 MG tablet 10 mg PO Qty: 0 [B COMPLEX] Qty: 0 [BIOTIN] Qty: 0 [CIMZIA] Qty: 0 [CRANBERRY] Qty: 0 loratadine 10 MG tablet 10 mg PO QDAY Qty: 0 multivitamin [Multiple Vitamins] 1 EACH tablet 1 tab PO QDAY Qty: 0 meloxicam [Mobic] 15 MG tablet 15 mg PO AMCC Qty: 30 [MILK THISTLE] Qty: 0 [OMEGA 3 6 9 ] Qty: 0 sulfasalazine 500 MG tablet 1,500 Q DAY Qty: 0 hydroxychloroquine [Plaquenil] 200 MG tablet 200 mg PO BID Qty: 0 omeprazole magnesium [Prilosec OTC] 20 MG tablet,delayed release (DR/EC) 20 mg PO Qty: 0 tramadol 50 MG tablet 50 mg PO QID Qty: 0 levothyroxine [Synthroid] 125 MCG tablet 125 mcg PO QAM Qty: 30 vitamin B complex [B Complex-Vitamin B12] 1 EACH tablet 1 tab PO QDAY Qty: 0 biotin 2,500 MCG capsule Qty: 0 calcium carbonate-vitamin D3 [Calcium 600 with Vitamin D3] 600 MG/200 IU capsule 1 sgl PO Qty: 0 [cimzia] Qty: 0 hydroxychloroquine 200 MG tablet 200 mg PO AMCC Qty: 0 diclofenac sodium [Voltaren] 1 % gel 1 javy Topical Qty: 0 [cranberry extract] Qty: 0 leflunomide [Arava] 20 MG tablet 20 mg PO Qty: 0 levothyroxine [Synthroid] 125 MCG tablet 0.125 mg PO QDAY Qty: 0 loratadine [Claritin] 10 MG tablet 10 mg PO QDAY Qty: 0 multivitamin [Multiple Vitamins] 1 EACH tablet 1 tab PO QDAY Qty: 0 meloxicam 15 MG tablet 15 mg PO Qty: 0 omega 9-miu-gno-fish oil [Omera] 1 EACH capsule 1 ea PO Qty: 0 [milk thistle] Qty: 0 sulfasalazine [Azulfidine] 500 MG tablet Qty: 0 simvastatin 20 MG tablet 20 mg PO HS Qty: 0 omeprazole 20 MG capsule,delayed release(DR/EC) 20 mg PO QDAY Qty: 0 tramadol 50 MG tablet 0 mg PO Q6HP Qty: 0 estradiol [Yuvafem] 10 MCG tablet 10 mcg Vaginal Qty: 0 albuterol sulfate [Ventolin HFA] 90 MCG/PUFF HFA aerosol inhaler 2 puff INH QID Qty: 1 0RF levofloxacin [Levaquin] 750 MG tablet 750 mg PO QDAY Qty: 7 0RF Referrals: George Garcia MD [Primary Care Provider] - Stand Alone Forms: Patient Portal/API
--- NOTE | 2023-04-06 19:42 | DI.CT.S_ITS ---
PROCEDURE: CT CHEST ABD PEL W CON INDICATIONS: Right upper quadrant pain with abnormal chest x-ray TECHNIQUE: After the administration of intravenous contrast, 5 mm thick sections acquired from the lung apices to the symphysis. 5 mm coronal and sagittal reformats were performed, with additional 7 mm MIP reformats through the lungs. For radiation dose reduction, the following was used: automated exposure control, adjustment of mA and/or kV according to patient size. COMPARISON: [facility], CR, XR CHEST 1V, 04/06/2023, 18:30. FINDINGS: Image quality: Excellent. CHEST: Lungs and pleura: No acute airspace opacities. No pleural effusions or pneumothorax. Central and peripheral airways appear patent and normal in caliber. Fat containing Morgagni hernia on the right. A few pleural parenchymal bands. No suspicious pulmonary nodules. Mediastinum: Heart size is normal. No pericardial effusion. No mediastinal or hilar adenopathy by size criteria. Thoracic aorta and central pulmonary arteries are normal in size. Esophagus is normal in caliber. No hiatal hernia. Chest wall: No axillary or supraclavicular adenopathy by size criteria. Thyroid gland is diminutive . ABDOMEN: Solid organs: Liver is normal in size and enhancement. Hepatic steatosis. Gallbladder is absent . Biliary system is non dilated. Pancreas enhances normally. Spleen is normal in size and enhancement. No adrenal nodules. Kidneys demonstrate normal size and enhancement, without hydronephrosis. Peritoneum and bowel: Bowel loops demonstrate normal wall thickness and caliber. No free fluid or air. Colonic diverticulosis without evidence of diverticulitis. Nodes and vessels: No retroperitoneal or mesenteric adenopathy by size criteria. Aorta and inferior vena cava are normal in size. Miscellaneous: No ventral hernias. PELVIS: Genitourinary: Bladder wall thickness is normal. Miscellaneous: No inguinal hernias or adenopathy. Bones: No suspicious bony lesions. No vertebral body compression fractures. IMPRESSION: Fat containing Morgagni hernia on the right, corresponding to abnormal findings seen on chest radiograph. No acute abnormality otherwise. Dictated by: Arik Paz M.D. on 04/06/2023 at 20:32 Approved by: Arik Paz M.D. on 04/06/2023 at 20:35
[2023-04-06] MEDS: HYDROMORPHONE 1 MG INJ IV (19:51)
[2023-04-06] MEDS: ACETAMINOPHEN 325 MG TABLET 975 MG PO (19:56)
[2023-04-06] MEDS: SODIUM CHLORIDE 0.9% 1,000 ML 1000 ML IV (19:57)
--- NOTE | 2023-04-06 20:16 | PC.NURSE ---
Patient ambulated back from bathroom, reports severe nausea and head pounding BP 227/105. Dr Drake notified of BP and verbal order for kendraan
[2023-04-06] MEDS: ONDANSETRON 4 MG/2 ML INJ IV (20:18)
[2023-04-06] MEDS: OXYCODONE ER 10 MG TAB PO (22:10)
--- NOTE | 2023-04-07 11:22 | PC.NURSE ---
Pt's prescription for morphine was not given at discharge. Discussed w/ Dr. Hewitt. Called pt and left message and given option of coming in for prescription or having another called in. Asked for call back. Awaiting it at this time.
== END 2023-04-06 22:17 | disposition home or self-care (01) ==
PROVIDERS: Emergency Medicine; Emergency Provider Family Medicine Addiction Medicine; Family Provider Internal Medicine; PCP Internal Medicine
DX: I10 Essential (primary) hypertension (principal); R10.11 Right upper quadrant pain; R51.9 Headache, unspecified; R30.0 Dysuria
CPT/HCPCS: 36415; 71045; 71260; 74177; 80053; 81003; 82550; 83690; 83735; 84484; 85025; 85610; 85730; 93005; 93010; 96361; 96374; 96375; 99284; J1170; J2405; Q9967

== ENCOUNTER 2023-09-25 09:45 | Outpatient (RCR) | payer OTHER, SELFPAY ==
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
--- NOTE | 2023-02-21 14:09 | OT.OP.TRT ---
Visit Care Team Role Provider Type George Garcia MD Family Provider Non-Staff Primary Care Provider Specialty: Internal Medicine Address: [address] [place], [address] Email: Kamala Cabral MD Attending Provider Non-Staff Referring Provider Specialty: Internal Medicine Address: [place], [address] Email: Occupational Therapy Treatment Note OT Outpatient Treatment Note - Adult Start: 02/14/23 10:35 Freq: Status: Active Protocol: Document 02/21/23 13:57 AMS (Rec: 02/21/23 14:[address] [facility] [id number]) OT Outpatient Adult Treatment Note Session Time Visit Start Time 09:45 Visit Stop Time 10:30 Total Visit Minutes 45 Visit Information Plan of Care Dates 02/14/23 - 04/11/23 Insurance Information [facility]; pre-auth all visits Setting Treatment Setting Outpatient Care Visit Type Note Type Treatment Note General Information General Information Opal is a 68 year-old right hand dominant female referred to outpatient OT secondary to diagnosis of extensor tenosynovitis of the R wrist. 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 - Subjective Identification Type Name Identification Reconciled With Medical Record Observations No new concerns were reported. - Objective Objective Measurements Please refer to below for progress towards meeting established OT goals: Short Term Goals 1. Opal will present with increased ability to engage in meaningful activities d/t bilateral increased wrist strength: 1a. MMT R wrist flex 4+/5 1b. MMT L wrist flex 4+/5 1c. MMT R wrist ext 4+/5 1d. MMT L wrist ext 4+/5 Alf Goals 1. Opal will be modified independent with distal UE home exercise program utilizing provided written and visual instructions from therapist. 2. Opal will verbalize 100% understanding of basic joint protection principles of the distal UEs referencing handout as needed. 3. Opal will present with increased ability to actively engage in meaningful activities as evidenced by the followina. Opal will obtain a QuickDASH UE Outcome Measure Score of 25.00 or less. 3b. Opal will indicate 2 or less out of 10 on the Pain Assessment Grid relative to distal UEs. - Exercises 2 Descriptor Self-myofascial thumb adductor release. Bilaterally executed . Passive wrist stretches. Passive wrist flex w/ elbow ext and forearm pronation. Passive wrist ext w/ elbow ext and forearm supination. Hold 20 sec. Bilaterally executed. Passive wrist stretches. Passive wrist RD w/ elbow ext and forearm pronation. Passive wrist UD w/ elbow ext and forearm pronation. Hold 20 sec . Bilaterally executed. 1 Descriptor Wrist strengthening. TB#2. R wrist ext. 3 x 15. TB #2. Elbow 90 degrees flex. R wrist flex. 3 x 15. TB #2. Elbow [address]. R wrist [address]. 3 x 15. TB #2. Elbow 90 degrees flex. R wrist UD. 3 x 15. TB #2. TT w/ forearm pronation. Elbow extension. - Assessment Assessment of Improvement Upgraded home exercise program ; instructed in resisted wrist ext/flex/RD/UD w/ theraband. Provided w/ TB #2 for home utilization. Instructed in passive wrist stretches and reviewed self-myofascial thumb adductor release. Also discussed use of tennis ball for thumb adductor release/ stretch and for opposition based thumb exercise. Overall, good session. Opal would likely benefit from outpatient OT to upgrade/add to current distal UE home exercise program, joint protection education/ discussion re: possible adaptive equipment/ compensatory strategies to support participation in meaningful activities, and to address bilateral hand/wrist pain and improve distal UE strength. Home Exercise Program 02/21/23 = Provided with TB #2 for wrist strengthening exercises; instructed in resisted wrist ext, wrist flex , wrist RD, wrist UD, w/ rec 3 x 15 reps 3 x a week or every other day. 02/14/23 = Discussed utilization of spring loaded scissors. Instructed in isometric hold of 2-3 seconds w/ opposition w/ active flexion of digits 3-5 to discourage add at 2nd MPJs w/ thumb to 2nd digit opposition (3 x 10 reps). Instructed in self-myofascial release of thumb adductor w/ hold of 20- 30 sec x 2 total reps (alt thumbs) on daily basis. Instructed in alt modified prayer pose w/ use of wall w/ elbow ext; reviewed 20-30 sec hold. - Plan Therapy Recommendations Continue with Current Program, Advance per Rehabilitation Protocol
--- NOTE | 2023-02-28 11:28 | OT.OP.TRT ---
Visit Care Team Role Provider Type George Garcia MD Family Provider Non-Staff Primary Care Provider Specialty: Internal Medicine Address: [address] [place], [address] Email: Kamala Cabral MD Attending Provider Non-Staff Referring Provider Specialty: Internal Medicine Address: [place], [address] Email: Occupational Therapy Treatment Note OT Outpatient Treatment Note - Adult Start: 02/14/23 10:35 Freq: Status: Active Protocol: Document 02/28/23 11:21 AMS (Rec: 02/28/23 11:28 [facility] [id number]) OT Outpatient Adult Treatment Note Session Time Visit Start Time 09:45 Visit Stop Time 10:30 Total Visit Minutes 45 Visit Information Plan of Care Dates 02/14/23 - 04/11/[address] [facility]; pre-auth all visits Setting Treatment Setting Outpatient Care Visit Type Note Type Treatment Note General Information General Information Opal is a 68 year-old right hand dominant female referred to outpatient OT secondary to diagnosis of extensor tenosynovitis of the R wrist. 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 - Subjective Identification Type Name Identification Reconciled With Medical Record Observations No new concerns were reported. Typically forms fists when pushing up off of something. Patient/Caregiver Compliance with Home Good Exercise Program - Objective Objective Measurements Please refer to below for progress towards meeting established OT goals: Short Term Goals 1. Opal will present with increased ability to engage in meaningful activities d/t bilateral increased wrist strength: 1a. MMT R wrist flex 4+/5 1b. MMT L wrist flex 4+/5 1c. MMT R wrist ext 4+/5 1d. MMT L wrist ext 4+/5 Family Medicine Resident Goals 1. Opal will be modified independent with distal UE home exercise program utilizing provided written and visual instructions from therapist. 2. Opal will verbalize 100% understanding of basic joint protection principles of the distal UEs referencing handout as needed. 3. Opal will present with increased ability to actively engage in meaningful activities as evidenced by the followina. Opal will obtain a QuickDASH UE Outcome Measure Score of 25.00 or less. 3b. Opal will indicate 2 or less out of 10 on the Pain Assessment Grid relative to distal UEs. - Exercises 5 Des[address] and hold. Opposition of thumb and 2nd digit w/ use of tennis ball. x 5 sec hold. 1 x 10. 4 Descriptor Wrist stabilization/weight bearing. Modified s-s w/ use of chair w / bilateral arm rests and pushing self-up. 1 x 8. 3 Descriptor Wrist strengthening. Weighted spherical ball. Wrist arch; RD <-> UD w/ wrist in ext. 3 x 15. 2.2# spherical ball. 2 Descriptor ROM/Self-myofascial release/ Glides Self-myofascial thumb adductor release. Bilaterally executed . x 2 Passive wrist stretches. Passive wrist flex w/ elbow ext and forearm pronation. Passive wrist ext w/ elbow ext and forearm supination. Hold 20 sec. Bilaterally executed. Passive wrist stretches. Passive wrist RD w/ elbow ext and forearm pronation. Passive wrist UD w/ elbow ext and forearm pronation. Hold 20 sec . Bilaterally executed. Tendon glides. x 5 cycles. Bilaterally executed. 1 Descriptor Wrist strengthening. Theraband . R wrist ext. 3 x 15. TB #3. Elbow 90 degrees flex. R wrist flex. 3 x 15. TB #3. Elbow 90 degrees flex. R wrist [address]. 3 x 15. TB #3. Elbow 90 degrees flex. R wrist UD. 3 x 15. TB #3. TT w/ forearm pronation. Elbow extension. - Assessment Assessment of Improvement (+) report of carry-over of home exercises. Upgrading of exercises/activities completed in treatment session; introduced tendon glides, place and hold w/ isometric strengthening w/ use of tennis ball and focus and coordination of bilateral thumbs and 2nd digits, and weight bearing w/ wrist/digits in ext w/ use of chair w/ arm rests. Overall, good session. Oapl would likely benefit from outpatient OT to upgrade/add to current distal UE home exercise program, joint protection education/ discussion re: possible adaptive equipment/ compensatory strategies to support participation in meaningful activities, and to address bilateral hand/wrist pain and improve distal UE strength. Home Exercise Program 02/21/23 = Provided with TB #2 for wrist strengthening exercises; instructed in resisted wrist ext, wrist flex , wrist RD, wrist UD, w/ rec 3 x 15 reps 3 x a week or every other day. 02/14/23 = Discussed utilization of spring loaded scissors. Instructed in isometric hold of 2-3 seconds w/ opposition w/ active flexion of digits 3-5 to discourage add at 2nd MPJs w/ thumb to 2nd digit opposition (3 x 10 reps). Instructed in self-myofascial release of thumb adductor w/ hold of 20- 30 sec x 2 total reps (alt thumbs) on daily basis. Instructed in alt modified prayer pose w/ use of wall w/ elbow ext; reviewed 20-30 sec hold. - Plan Therapy Recommendations Continue with Current Program, Advance per Rehabilitation Protocol
--- NOTE | 2023-03-07 11:55 | OT.OP.TRT ---
Visit Care Team Role Provider Type George Garcia MD Family Provider Non-Staff Primary Care Provider Specialty: Internal Medicine Address: [address] [place], [address] Email: Kamala Cabral MD Attending Provider Non-Staff Referring Provider Specialty: Internal Medicine Address: [place], [address] Email: Occupational Therapy Treatment Note OT Outpatient Treatment Note - Adult Start: 02/14/23 10:35 Freq: Status: Active Protocol: Document 03/07/23 11:48 AMS (Rec: 03/07/23 11:55 AMS [id number]) OT Outpatient Adult Treatment Note Session Time Visit Start Time 09:45 Visit Stop Time 10:30 Total Visit Minutes 45 Visit Information Plan of Care Dates 02/14/23 - 04/11/23 Insurance Information [facility]; pre-auth all visits Setting Treatment Setting Outpatient Care Visit Type Note Type Treatment Note General Information General Information Opal is a 68 year-old right hand dominant female referred to outpatient OT secondary to diagnosis of extensor tenosynovitis of the R wrist. 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 - Subjective Identification Type Name Identification Reconciled With Medical Record Observations No new concerns were reported. Patient/Caregiver Compliance with Home Good Exercise Program - Objective Objective Measurements Please refer to below for progress towards meeting established OT goals: 02/28/23 = Typically forms fists when pushing up off of something. Short Term Goals 1. Opal will present with increased ability to engage in meaningful activities d/t bilateral increased wrist strength: 1a. MMT R wrist flex 4+/5 1b. MMT L wrist flex 4+/5 1c. MMT R wrist ext 4+/5 1d. MMT L wrist ext 4+/5 Alf Goals 1. Opal will be modified independent with distal UE home exercise program utilizing provided written and visual instructions from therapist. 2. Opal will verbalize 100% understanding of basic joint protection principles of the distal UEs referencing handout as needed. 3. Opal will present with increased ability to actively engage in meaningful activities as evidenced by the followina. Opal will obtain a QuickDASH UE Outcome Measure Score of 25.00 or less. 3b. Opal will indicate 2 or less out of 10 on the Pain Assessment Grid relative to distal UEs. - Treatment 1 Descriptor Paraffin bath. x 10 minutes. B distal UEs/hands/wrists. Hands washed prior to use w/ removal of jewelry. Application x 10 minutes. Skin intact pre- and post- treatment. Exercises [address] Des[address] and hold. Opposition of thumb and 2nd digit w/ use of tennis ball. x 5 sec hold. 1 x 10. 4 Descriptor Wrist stabilization/weight bearing. Modified s-s w/ use of chair w / bilateral arm rests and pushing self-up. 1 x 8. 3 Descriptor Wrist strengthening. Weighted spherical ball. Wrist arch; RD <-> UD w/ wrist in ext. 3 x 15. 2.2# spherical ball. 2 Descriptor ROM/Self-myofascial release/ Glides Self-myofascial thumb adductor release. Bilaterally executed . x 2 Passive wrist stretches. Passive wrist flex w/ elbow ext and forearm pronation. Passive wrist ext w/ elbow ext and forearm supination. Hold 20 sec. Bilaterally executed. Passive wrist stretches. Passive wrist RD w/ elbow ext and forearm pronation. Passive wrist UD w/ elbow ext and forearm pronation. Hold 20 sec . Bilaterally executed. Tendon glides. x 10 cycles. Bilaterally executed. 1 Descriptor Wrist strengthening. Theraband . R wrist ext. 3 x 15. TB #3. Elbow 90 degrees flex. R wrist flex. 3 x 15. TB #3. Elbow 90 degrees flex. R wrist [address]. 3 x 15. TB #3. Elbow 90 degrees flex. R wrist UD. 3 x 15. TB #3. TT w/ forearm pronation. Elbow extension. - Assessment Assessment of Improvement Provided w/ written and visual instructions for theraband resistance wrist strengthening exercises. Reviewed recommended home exercises and denied any questions. Trialed paraffin bath; discussed modality as potential use in the home to address flexibility/range of motion of fingers/hands. Patient actively uses the couple's hot tub w/ temperature of approx 102 degrees in which she executes finger/hand range of motion. Overall, good session. Opal would likely benefit from outpatient OT to upgrade/add to current distal UE home exercise program, joint protection education/ discussion re: possible adaptive equipment/ compensatory strategies to support participation in meaningful activities, and to address bilateral hand/wrist pain and improve distal UE strength. Home Exercise Program 03/07/23 = Education re: paraffin bath for home modality use. Provided written /visual instructions for TB wrist strengthening. 02/21/23 = Provided with TB #2 for wrist strengthening exercises; instructed in resisted wrist ext, wrist flex , wrist RD, wrist UD, w/ rec 3 x 15 reps 3 x a week or every other day. 02/14/23 = Discussed utilization of spring loaded scissors. Instructed in isometric hold of 2-3 seconds w/ opposition w/ active flexion of digits 3-5 to discourage add at 2nd MPJs w/ thumb to 2nd digit opposition (3 x 10 reps). Instructed in self-myofascial release of thumb adductor w/ hold of 20- 30 sec x 2 total reps (alt thumbs) on daily basis. Instructed in alt modified prayer pose w/ use of wall w/ elbow ext; reviewed 20-30 sec hold. - Plan Therapy Recommendations Continue with Current Program, Advance per Rehabilitation Protocol
--- NOTE | 2023-03-14 14:20 | OT.OP.TRT ---
Visit Care Team Role Provider Type George Garcia MD Family Provider Non-Staff Primary Care Provider Specialty: Internal Medicine Address: [address] [place], [address] Email: Kamala Cabral MD Attending Provider Non-Staff Referring Provider Specialty: Internal Medicine Address: [facility] [place], [address] Email: Occupational Therapy Treatment Note OT Outpatient Treatment Note - Adult Start: 02/14/23 10:35 Freq: Status: Active Protocol: Document 03/14/23 14:14 AMS (Rec: 03/14/23 14:19 [facility] [id number]) OT Outpatient Adult Treatment Note Session Time Visit Start Time 09:45 Visit Stop Time 10:45 Total Visit Minutes 60 Visit Information Plan of Care Dates 02/14/23 - 04/11/23 Insurance Information [facility]; pre-auth all visits Setting Treatment Setting Outpatient Care Visit Type Note Type Treatment Note General Information General Information Opal is a 68 year-old right hand dominant female referred to outpatient OT secondary to diagnosis of extensor tenosynovitis of the R wrist. 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 - Subjective Identification Type Name Identification Reconciled With Medical Record Observations Report of using gyroscope in the home; bilateral wrists. Follow-up appointment w/ record cutter in 1 month. Patient/Caregiver Compliance with Home Excellent Exercise Program - Objective Objective Measurements Please refer to below for progress towards meeting established OT goals: 02/28/23 = Typically forms fists when pushing up off of something. Short Term Goals 1. Opal will present with increased ability to engage in meaningful activities d/t bilateral increased wrist strength: 1a. MMT R wrist flex 4+/5 1b. MMT L wrist flex 4+/5 1c. MMT R wrist ext 4+/5 1d. MMT L wrist ext 4+/5 Senior Living Goals 1. Opal will be modified independent with distal UE home exercise program utilizing provided written and visual instructions from therapist. 2. Opal will verbalize 100% understanding of basic joint protection principles of the distal UEs referencing handout as needed. 3. Opal will present with increased ability to actively engage in meaningful activities as evidenced by the followina. Opal will obtain a QuickDASH UE Outcome Measure Score of 25.00 or less. 3b. Opal will indicate 2 or less out of 10 on the Pain Assessment Grid relative to distal UEs. - Treatment 1 Descriptor Paraffin bath. x 10 minutes. B distal UEs/hands/wrists. Hands washed prior to use w/ removal of jewelry. Application x 10 minutes. Skin intact pre- and post- treatment. Exercises 6 Descriptor UEB x 8 minutes. Seated. [address] and hold. Opposition of thumb and 2nd digit w/ use of tennis ball. x 5 sec hold. 1 x 10. 3 Descriptor Wrist strengthening. Weighted spherical ball. Wrist arc; RD <-> UD w/ wrist in ext. 3 x 15. 2.2# weighted spherical ball. Wrist ext/TT touch. 3 x 15. 2. 2# weighted spherical ball. 2 Descriptor ROM/Self-myofascial release/ Glides Self-myofascial thumb adductor release. Bilaterally executed . x 2 Passive wrist stretches. Passive wrist flex w/ elbow ext and forearm pronation. Passive wrist ext w/ elbow ext and forearm supination. Hold 20 sec. Bilaterally executed. Passive wrist stretches. Passive wrist RD w/ elbow ext and forearm pronation. Passive wrist UD w/ elbow ext and forearm pronation. Hold 20 sec . Bilaterally executed. Tendon glides. x 10 cycles. Bilaterally executed. 1 Descriptor Wrist strengthening. Theraband . R wrist ext. 3 x 15. TB #3. Elbow 90 degrees flex. R wrist flex. 3 x 15. TB #3. Elbow 90 degrees flex. R wrist RD. 3 x 15. TB #3. Elbow 90 degrees flex. R wrist UD. 3 x 15. TB #3. TT w/ forearm pronation. Elbow extension. - Assessment Assessment of Improvement (+) response to paraffin bath. (+) execution of resistance/ strengthening wrist exercises utilizing theraband; (+) use of gyroscope as well bilaterally in both directions (until encountering fatigue). Overall, good session. Opal would likely benefit from outpatient OT to upgrade/add to current distal UE home exercise program, joint protection education/ discussion re: possible adaptive equipment/ compensatory strategies to support participation in meaningful activities, and to address bilateral hand/wrist pain and improve distal UE strength. Home Exercise Program 03/07/23 = Education re: paraffin bath for home modality use. Provided written /visual instructions for TB wrist strengthening. 02/21/23 = Provided with TB #2 for wrist strengthening exercises; instructed in resisted wrist ext, wrist flex , wrist RD, wrist UD, w/ rec 3 x 15 reps 3 x a week or every other day. 02/14/23 = Discussed utilization of spring loaded scissors. Instructed in isometric hold of 2-3 seconds w/ opposition w/ active flexion of digits 3-5 to discourage add at 2nd MPJs w/ thumb to 2nd digit opposition (3 x 10 reps). Instructed in self-myofascial release of thumb adductor w/ hold of 20- 30 sec x 2 total reps (alt thumbs) on daily basis. Instructed in alt modified prayer pose w/ use of wall w/ elbow ext; reviewed 20-30 sec hold. - Plan Therapy Recommendations Continue with Current Program, Advance per Rehabilitation Protocol
--- NOTE | 2023-03-21 14:16 | OT.OP.TRT ---
Visit Care Team Role Provider Type George Garcia MD Family Provider Non-Staff Primary Care Provider Specialty: Internal Medicine Address: [address] [place], [address] Email: Kamala Cabral MD Attending Provider Non-Staff Referring Provider Specialty: Internal Medicine Address: [place], [address] Email: Occupational Therapy Treatment Note OT Outpatient Treatment Note - Adult Start: 02/14/23 10:35 Freq: Status: Active Protocol: Document 03/21/23 14:09 AMS (Rec: 03/21/23 14:16 [facility] [id number]) OT Outpatient Adult Treatment Note Session Time Visit Start Time 09:45 Visit Stop Time 10:40 Total Visit Minutes 55 Visit Information Plan of Care Dates 02/14/23 - 04/11/23 Insurance Information [facility]; pre-auth all visits Setting Treatment Setting Outpatient Care Visit Type Note Type Treatment Note General Information General Information Opal is a 68 year-old right hand dominant female referred to outpatient OT secondary to diagnosis of extensor tenosynovitis of the R wrist. 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 - Subjective Identification Type Name Identification Reconciled With Medical Record Observations (+) report of use of gyroscope in the home; bilateral wrists in both directions. (+) use of hot tub to support flexibility/range of motion of hands/wrists. 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 Patient/Caregiver Compliance with Home Excellent Exercise Program - Objective Objective Measurements Please refer to below for progress towards meeting established OT goals: 02/28/23 = Typically forms fists when pushing up off of something. Short Term Goals 1. Opal will present with increased ability to engage in meaningful activities d/t bilateral increased wrist strength: 1a. MMT R wrist flex 4+/5 1b. MMT L wrist flex 4+/5 1c. MMT R wrist ext 4+/5 1d. MMT L wrist ext 4+/5 Nursing Home Goals 1. Opal will be modified independent with distal UE home exercise program utilizing provided written and visual instructions from therapist. 2. Opal will verbalize 100% understanding of basic joint protection principles of the distal UEs referencing handout as needed. 3. Opal will present with increased ability to actively engage in meaningful activities as evidenced by the followina. Opal will obtain a QuickDASH UE Outcome Measure Score of 25.00 or less. 3b. Opal will indicate 2 or less out of 10 on the Pain Assessment Grid relative to distal UEs. - Treatment 1 Descriptor Paraffin bath. x 10 minutes. B distal UEs/hands/wrists. Treatment x 10 minutes. Skin was intact pre- and post- treatment. Exercises 6 Descriptor UEB x 10 minutes. Seated. Forwards direction. [address] and hold. Opposition of thumb and 2nd digit w/ use of tennis ball. x 5 sec hold. 1 x 10. 4 Descriptor Wrist stabilization/weight bearing. Modified s-s w/ use of chair w / bilateral arm rests and pushing self-up. 1 x 8. 3 Descriptor Wrist strengthening. Weighted spherical ball. Wrist arc; RD <-> UD w/ wrist in ext. 3 x 15. 2.2# weighted spherical ball. Wrist ext/TT touch. 3 x 15. 2. 2# weighted spherical ball. 2 Descriptor ROM/Self-myofascial release/ Glides Self-myofascial thumb adductor release. Bilaterally executed . x 2 Passive wrist stretches. Passive wrist flex w/ elbow ext and forearm pronation. Passive wrist ext w/ elbow ext and forearm supination. Hold 20 sec. Bilaterally executed. Passive wrist stretches. Passive wrist RD w/ elbow ext and forearm pronation. Passive wrist UD w/ elbow ext and forearm pronation. Hold 20 sec . Bilaterally executed. Tendon glides. x 5 cycles. Bilaterally executed. 1 Descriptor Wrist strengthening. Theraband . R wrist ext. 3 x 15. TB #3. Elbow 90 degrees flex. R wrist flex. 3 x 15. TB #3. Elbow 90 degrees flex. R wrist RD. 3 x 15. TB #3. Elbow 90 degrees flex. R wrist UD. 3 x 15. TB #3. TT w/ forearm pronation. Elbow extension. - Assessment Assessment of Improvement (+) use of personal hot tub to support mobility of digits/ hands/wrists. (+) use of gyroscope bilaterally in both directions for strengthening of wrists. Rec trialing use of flex bar for wrist strengthening as another option to theraband vs gyroscope. Overall, good session. Opal would likely benefit from outpatient OT to upgrade/add to current distal UE home exercise program, joint protection education/ discussion re: possible adaptive equipment/ compensatory strategies to support participation in meaningful activities, and to address bilateral hand/wrist pain and improve distal UE strength. Home Exercise Program 03/07/23 = Education re: paraffin bath for home modality use. Provided written /visual instructions for TB wrist strengthening. 02/21/23 = Provided with TB #2 for wrist strengthening exercises; instructed in resisted wrist ext, wrist flex , wrist RD, wrist UD, w/ rec 3 x 15 reps 3 x a week or every other day. 02/14/23 = Discussed utilization of spring loaded scissors. Instructed in isometric hold of 2-3 seconds w/ opposition w/ active flexion of digits 3-5 to discourage add at 2nd MPJs w/ thumb to 2nd digit opposition (3 x 10 reps). Instructed in self-myofascial release of thumb adductor w/ hold of 20- 30 sec x 2 total reps (alt thumbs) on daily basis. Instructed in alt modified prayer pose w/ use of wall w/ elbow ext; reviewed 20-30 sec hold. - Plan Therapy Recommendations Continue with Current Program, Advance per Rehabilitation Protocol
--- NOTE | 2023-03-28 14:18 | OT.OP.TRT ---
Visit Care Team Role Provider Type George Garcia MD Family Provider Non-Staff Primary Care Provider Specialty: Internal Medicine Address: [address] [place], [address] Email: Kamala Cabral MD Attending Provider Non-Staff Referring Provider Specialty: Internal Medicine Address: [place], [address] Email: Occupational Therapy Treatment Note OT Outpatient Treatment Note - Adult Start: 02/14/23 10:35 Freq: Status: Active Protocol: Document 03/28/23 14:13 AMS (Rec: 03/28/23 14:18 AMS [id number]) OT Outpatient Adult Treatment Note Session Time Visit Start Time 09:45 Visit Stop Time 10:35 Total Visit Minutes 50 Visit Information Plan of Care Dates 02/14/23 - 04/11/23 Insurance Information [facility]; pre-auth all visits Setting Treatment Setting Outpatient Care Visit Type Note Type Treatment Note General Information General Information Opal is a 68 year-old right hand dominant female referred to outpatient OT secondary to diagnosis of extensor tenosynovitis of the R wrist. 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 - Subjective Identification Type Name Identification Reconciled With Medical Record Observations (+) report of use of gyroscope in the home; bilateral wrists in both directions. (+) use of hot tub to support flexibility/range of motion of hands/wrists. 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 Patient/Caregiver Compliance with Home Excellent Exercise Program - Objective Objective Measurements Please refer to below for progress towards meeting established OT goals: 02/28/23 = Typically forms fists when pushing up off of something. Short Term Goals 1. Opal will present with increased ability to engage in meaningful activities d/t bilateral increased wrist strength: 1a. MMT R wrist flex 4+/5 1b. MMT L wrist flex 4+/5 1c. MMT R wrist ext 4+/5 1d. 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 Opal will be modified independent with distal UE home exercise program utilizing provided written and visual instructions from therapist. 2. Opal will verbalize 100% understanding of basic joint protection principles of the distal UEs referencing handout as needed. 3. Opal will present with increased ability to actively engage in meaningful activities as evidenced by the followina. Opal will obtain a QuickDASH UE Outcome Measure Score of 25.00 or less. 3b. Opal will indicate 2 or less out of 10 on the Pain Assessment Grid relative to distal UEs. - Treatment 1 Descriptor Paraffin bath. x 10 minutes. B distal UEs/hands/wrists. Treatment x 10 minutes. Skin was intact pre- and post- treatment. Exercises 6 Descriptor UEB x 10 minutes. Seated. Forwards direction. [address] and hold. Opposition of thumb and 2nd digit w/ use of tennis ball. x 5 sec hold. 1 x 10. 2 Descriptor ROM/Self-myofascial release/ Glides Self-myofascial thumb adductor release. Bilaterally executed . x 2 Passive wrist stretches. Passive wrist flex w/ elbow ext and forearm pronation. Passive wrist ext w/ elbow ext and forearm supination. Hold 20 sec. Bilaterally executed. Passive wrist stretches. Passive wrist RD w/ elbow ext and forearm pronation. Passive wrist UD w/ elbow ext and forearm pronation. Hold 20 sec . Bilaterally executed. Tendon glides. x 8 cycles. Bilaterally executed. 1 Descriptor Wrist strengthening. Theraband . R wrist ext. 3 x 15. TB #3. Elbow 90 degrees flex. R wrist flex. 3 x 15. TB #3. Elbow 90 degrees flex. R wrist RD. 3 x 15. TB #3. Elbow 90 degrees flex. R wrist UD. 3 x 15. TB #3. TT w/ forearm pronation. Elbow extension. - Assessment Assessment of Improvement (+) use of gyroscope bilaterally in both directions for strengthening of wrists. Rec trialing flexbar for strengthening. Rec re- assessing wrist strength. Rec provision of TB#3 for home use . Overall, good session. Opal would likely benefit from outpatient OT to upgrade/add to current distal UE home exercise program, joint protection education/ discussion re: possible adaptive equipment/ compensatory strategies to support participation in meaningful activities, and to address bilateral hand/wrist pain and improve distal UE strength. Home Exercise Program 03/07/23 = Education re: paraffin bath for home modality use. Provided written /visual instructions for TB wrist strengthening. 02/21/23 = Provided with TB #2 for wrist strengthening exercises; instructed in resisted wrist ext, wrist flex , wrist RD, wrist UD, w/ rec 3 x 15 reps 3 x a week or every other day. 02/14/23 = Discussed utilization of spring loaded scissors. Instructed in isometric hold of 2-3 seconds w/ opposition w/ active flexion of digits 3-5 to discourage add at 2nd MPJs w/ thumb to 2nd digit opposition (3 x 10 reps). Instructed in self-myofascial release of thumb adductor w/ hold of 20- 30 sec x 2 total reps (alt thumbs) on daily basis. Instructed in alt modified prayer pose w/ use of wall w/ elbow ext; reviewed 20-30 sec hold. - Plan Therapy Recommendations Continue with Current Program, Advance per Rehabilitation Protocol
--- NOTE | 2023-04-04 15:26 | OT.OP.TRT ---
Visit Care Team Role Provider Type George Garcia MD Family Provider Non-Staff Primary Care Provider Specialty: Internal Medicine Address: [address] [place], [address] Email: Kamala Cabral MD Attending Provider Non-Staff Referring Provider Specialty: Internal Medicine Address: [address] [place] [address], [id number] Email: Occupational Therapy Treatment Note OT Outpatient Treatment Note - Adult Start: 02/14/23 10:35 Freq: Status: Active Protocol: Document 04/04/23 15:15 AMS (Rec: 04/04/23 15:25 [facility] [id number]) OT Outpatient Adult Treatment Note Session Time Visit Start Time 09:30 Visit Stop Time 10:25 Total Visit Minutes 55 Visit Information Plan of Care Dates 02/14/23 - 04/11/23 Insurance Information [facility]; pre-auth all visits Setting Treatment Setting Outpatient Care Visit Type Note Type Treatment Note General Information General Information Opal is a 68 year-old right hand dominant female referred to outpatient OT secondary to diagnosis of extensor tenosynovitis of the R wrist. 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 - Subjective Identification Type Name Identification Reconciled With Medical Record Observations (+) report of use of gyroscope in the home; bilateral wrists in both directions. (+) use of hot tub to support flexibility/range of motion of hands/wrists. Report of intent to see PCP given c/o body aches and fatigue and concern of UTI. 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 Patient/Caregiver Compliance with Home Excellent Exercise Program - Objective Objective Measurements Please refer to below for progress towards meeting established OT goals: 02/28/23 = Typically forms fists when pushing up off of something. Short Term Goals 1. Opal will present with increased ability to engage in meaningful activities d/t bilateral increased wrist strength: 1a. MMT R wrist flex 4+/5 1b. MMT L wrist flex 4+/5 1c. MMT R wrist ext 4+/5 1d. MMT L wrist ext 4+/5 Manager Paper Goals 1. Opal will be modified independent with distal UE home exercise program utilizing provided written and visual instructions from therapist. 2. Opal will verbalize 100% understanding of basic joint protection principles of the distal UEs referencing handout as needed. 3. Opal will present with increased ability to actively engage in meaningful activities as evidenced by the followina. Opal will obtain a QuickDASH UE Outcome Measure Score of 25.00 or less. 3b. Opal will indicate 2 or less out of 10 on the Pain Assessment Grid relative to distal UEs. - Treatment 1 Descriptor Paraffin bath. x 10 minutes. B distal UEs/hands/wrists. Treatment x 10 minutes. Skin was intact pre- and post- treatment. Exercises 7 Descriptor Finger strengthening. TB #2 strip. B 2nd digit abduction. 3 x 15. 6 Descriptor UEB x 10 minutes. Seated. Forwards direction. [address] and hold. Opposition of thumb and 2nd digit w/ use of tennis ball. x 5 sec hold. 1 x 10. 4 Descriptor Wrist stabilization/weight bearing. Modified s-s w/ use of chair w / bilateral arm rests and pushing self-up. 1 x 8. 3 Descriptor Wrist strengthening. Weighted spherical ball. Wrist arc; RD <-> UD w/ wrist in ext. 3 x 15. 2.2# weighted spherical ball. Wrist ext/TT touch. 3 x 15. 2. 2# weighted spherical ball. 2 Descriptor ROM/Self-myofascial release/ Glides Self-myofascial thumb adductor release. Bilaterally executed . x 2 Passive wrist stretches. Passive wrist flex w/ elbow ext and forearm pronation. Passive wrist ext w/ elbow ext and forearm supination. Hold 20 sec. Bilaterally executed. Passive wrist stretches. Passive wrist RD w/ elbow ext and forearm pronation. Passive wrist UD w/ elbow ext and forearm pronation. Hold 20 sec . Bilaterally executed. Modified prayer pose to support MPJ ext of digits 2-5. x 4 each direction. Tendon glides. x 7 cycles. Bilaterally executed. 1 Descriptor Wrist strengthening. Theraband . R wrist ext. 2 x 15. TB #3. Elbow 90 degrees flex. R wrist flex. 2 x 15. TB #3. Elbow 90 degrees flex. R wrist RD. 2 x 15. TB #3. Elbow 90 degrees flex. N/A 04/04/23 = d/t c/o pain. R wrist UD. 3 x 15. TB #3. TT w / forearm pronation. Elbow extension. - Assessment Assessment of Improvement (+) use of gyroscope bilaterally in both directions for strengthening of wrists. Given c/o body aches and fatigue did not trial red flexbar or reassess wrist strength. Opal did verbalize concern of mild joint deformities of bilateral 2nd digits w/ mild medial rotation of L 2nd digit at PIPJ and ulnar tendencies of 2nd digits at PIPJ. Opal is monitoring changes to her fingers/hands. She may benefit from CHT evaluation to determine if night splints of the 2nd digits would be appropriate given that custom/made splints are not provided at this clinic. Rec trialing flexbar for strengthening. Rec reassessing wrist strength. Rec provision of TB#3 for home use. Overall, good session. Opal would likely benefit from outpatient OT to upgrade/add to current distal UE home exercise program, joint protection education/ discussion re: possible adaptive equipment/ compensatory strategies to support participation in meaningful activities, and to address bilateral hand/wrist pain and improve distal UE strength. Home Exercise Program 03/07/23 = Education re: paraffin bath for home modality use. Provided written /visual instructions for TB wrist strengthening. 02/21/23 = Provided with TB #2 for wrist strengthening exercises; instructed in resisted wrist ext, wrist flex , wrist RD, wrist UD, w/ rec 3 x 15 reps 3 x a week or every other day. 02/14/23 = Discussed utilization of spring loaded scissors. Instructed in isometric hold of 2-3 seconds w/ opposition w/ active flexion of digits 3-5 to discourage add at 2nd MPJs w/ thumb to 2nd digit opposition (3 x 10 reps). Instructed in self-myofascial release of thumb adductor w/ hold of 20- 30 sec x 2 total reps (alt thumbs) on daily basis. Instructed in alt modified prayer pose w/ use of wall w/ elbow ext; reviewed 20-30 sec hold. - Plan Therapy Recommendations Continue with Current Program, Advance per Rehabilitation Protocol
--- NOTE | 2023-04-18 16:00 | OT.OPPOC ---
Physical, Occupational & Speech Therapy At [facility] Opal Prince [id number] Visit Care Team Role Provider Type George Garcia MD Family Provider Non-Staff Primary Care Provider Address: [address] [place], [address] Kamala Cabral MD Attending Provider Non-Staff Referring Provider Address: [id number] [place] [address], [address] Occupational Therapy Plan of Care OT Outpatient Adult Evaluation Start: 02/14/23 10:35 Freq: Status: Active Protocol: Document 02/14/23 10:36 AMS (Rec: 02/14/23 11:25 AMS [id number]) General Information - Adult Visit Information Plan of Care Dates 02/14/23 - 04/11/23 Insurance Information [facility]; pre-auth all visits Session Time Visit Start Time 08:40 Visit Stop Time 09:25 Total Visit Minutes 45 Setting Treatment Setting Outpatient Care Visit Type Note Type Initial Evaluation Identification Identification Confirmed Yes Identification Confirmed By Self Goals Treatment Treatment Initiated home exercise program. Short Term Goals Short Term Goals 1. Opal will present with increased ability to engage in meaningful activities d/t bilateral increased wrist strength: 1a. MMT R wrist flex 4+/5 1b. MMT L wrist flex 4+/5 1c. MMT R wrist ext 4+/5 1d. MMT L wrist ext 4+/5 Fdc Goals Emergency Room Specialist Goals 1. Opal will be modified independent with distal UE home exercise program utilizing provided written and visual instructions from therapist. 2. Opal will verbalize 100% understanding of basic joint protection principles of the distal UEs referencing handout as needed. 3. Opal will present with increased ability to actively engage in meaningful activities as evidenced by the followina. Opal will obtain a QuickDASH UE Outcome Measure Score of 25.00 or less. 3b. Opal will indicate 2 or less out of 10 on the Pain Assessment Grid relative to distal UEs. Assessment/Plan Assessment Treatment Assessment Opal is a 68 year-old right hand dominant female referred to outpatient OT secondary to diagnosis of extensor tenosynovitis of the wrist. 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 Medical history is significant for arthritis, headaches, L TKR, asthma, thyroid disorder, TBI/concussion (1966), and removal of gall bladder. Opal also reported that she was diagnosed w/ RA in Apr . Med list to be scanned into EMR. She is taking meloxicam ( arthritis medication) and applying topical pain medication to wrists/hands; she is also taking tramadol as needed for pain management. She has multiple wrist braces that she has not worn for over a year; wears 2 different types of gloves to keep hands warm and utilizes personal hot tub. 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 Patient goals = maintain range of motion of hands. Opal indicated 5 out of 10 pain on the Hand/Wrist Pain Assessment Grid relative to volar/dorsal surfaces of bilateral wrists, bilateral dorsal 2nd/3rd digits, and volar bilateral 2nd/3rd digits w/ shading into the palms of hands. QuickDASH UE Outcome Measure Score = 63.64. (+) tenderness to palpation of bilateral CMCJs. (+) bilateral thumb adductor tightness. Able to oppose thumbs bilaterally to each digit pad w/ cueing to encourage flex at MP and IP of bilateral thumbs . Tendency into adduction of bilateral 2nd MPJs w/ tip-to- tip of thumb/2nd digits. ROM Measurements: 50 degrees active pain-free R wrist flex vs 60 degrees active pain-free L wrist flexion. 73 degrees active pain-free R wrist ext vs 68 degrees active pain-free L wrist ext. 15 degrees active pain-free R wrist RD and 15 degrees active pain- free L wrist RD. 26 degrees active pain-free R wrist UD vs 30 degrees active pain-free L wrist UD. Strength Findings: MMT R wrist flex 4/5 vs MMT L wrist flex 4/5. MMT R wrist ext 4/5 vs MMT L wrist ext 4/5. MMT R wrist RD 4+/5 vs MMT L wrist RD 4/5. MMT R wrist UD 4+/5 vs MMT L wrist UD 4/5. 27# of force R elevator examiner and adjuster (vs 49.6 +/- 9.7 when compared to 65-69 year- old female peers) 26# of force L elevator examiner and adjuster (vs 41.0 +/- 8.2 when compared to 65-69 year-old female peers) dynamometer II w / elbows in 90 degrees flex. 23# of force R elevator examiner and adjuster vs 30# of force L elevator examiner and adjuster dynamometer II w/ elbows extended. 8# of force R lateral pinch (vs 15.0 +/- 2 .6 when compared to 65-69 year -old female peers) 9# of force L lateral pinch (vs 14.3 +/- 2.8 when compared to 65-69 year-old female peers). 5# of force R tip pinch (vs 10.6 +/- 2.0 when compared to 65-69 year-old female peers) 6.5# of force L tip pinch (vs 10.5 +/ - 2.4 when compared to 65-69 year-old female peers). 6# of force R 3-jaw pinch (vs 14.2 + /- 3.1 when compared to 65-69 year-old female peers) 8# of force L 3-jaw pinch (vs 13.7 + /- 3.4 when compared to 65-69 year-old female peers). Currently Opal does daily opposition of digits, modified prayer pose for distal wrist/ finger range of motion. Opal would likely benefit from outpatient OT to upgrade/add to current distal UE home exercise program, joint protection education/ discussion re: possible adaptive equipment/ compensatory strategies to support participation in meaningful activities, and to address bilateral hand/wrist pain and improve distal UE strength. Home Exercise Program 02/14/23 = Discussed utilization of spring loaded scissors. Instructed in isometric hold of 2-3 seconds w/ opposition w/ active flexion of digits 3-5 to discourage add at 2nd MPJs w/ thumb to 2nd digit opposition (3 x 10 reps). Instructed in self-myofascial release of thumb adductor w/ hold of 20- 30 sec x 2 total reps (alt thumbs) on daily basis. Instructed in alt modified prayer pose w/ use of wall w/ elbow ext; reviewed 20-30 sec hold. Plan Length of treatment (weeks) 8 Plan of Care Start Date 02/14/23 Plan of Care End Date 04/11/23 Treatment Frequency Once a Week Therapeutic Contents Active Range of Motion, Adaptive Equipment Education, Client Education,Functional Activities,Home Exercise Program,Joint Protection, Manual Therapy,Education, Neurodevelopment Treatment, Neuromuscular Re-Education, Self-Care,Stretching/ Flexibility Activities, Therapeutic Activities, Therapeutic Exercises, Modalities Modalities As Needed,As Prescribed Additional Types of Modalities Heat/Ice/Contrast baths/US Functional Wrist/Hand Scan Hand Side Sensory Assessment Sensory Profile2 OT Outpatient Treatment Note - Adult Start: 02/14/23 10:35 Freq: Status: Active Protocol: Document 04/18/23 16:00 AMS (Rec: 04/19/23 14:09 AMS [id number]) OT Outpatient Adult Treatment Note Session Time Visit Start Time 09:30 Visit Stop Time 10:25 Total Visit Minutes 55 Visit Information Plan of Care Dates 04/11/23 - 05/23/22 Insurance Information [facility]; pre-auth all visits Setting Treatment Setting Outpatient Care Visit Type Note Type Progress Note General Information General Information Opal is a 68 year-old right hand dominant female referred to outpatient OT secondary to diagnosis of extensor tenosynovitis of the R wrist. 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 - Subjective Identification Type Name Identification Reconciled With Medical Record Observations Report of not feeling well past week. Has follow-up appointment w/ PCP this Sunday , 04/20/23. Has been experiencing full body aches/ pain which has been impacting her day-to-day life. Patient/Caregiver Compliance with Home Excellent Exercise Program - Objective Objective Measurements Please refer to below for progress towards meeting established OT goals: 02/28/23 = Typically forms fists when pushing up off of something. Short Term Goals 1. Opal will present with increased ability to engage in meaningful activities d/t bilateral increased wrist strength: 1a. MMT R wrist flex 4+/5 1b. MMT L wrist flex 4+/5 1c. MMT R wrist ext 4+/5 1d. MMT L wrist ext 4+/5 Fdc Goals 1. Opal will be modified independent with distal UE home exercise program utilizing provided written and visual instructions from therapist. 2. Opal will verbalize 100% understanding of basic joint protection principles of the distal UEs referencing handout as needed. 3. Opal will present with increased ability to actively engage in meaningful activities as evidenced by the followina. Opal will obtain a QuickDASH UE Outcome Measure Score of 25.00 or less. 3b. Opal will indicate 2 or less out of 10 on the Pain Assessment Grid relative to distal UEs. - Treatment 1 Descriptor Paraffin bath. x 10 minutes. B distal UEs/hands/wrists. Treatment x 10 minutes. Skin was intact pre- and post- treatment. Exercises 7 Descriptor Finger strengthening. TB #2 strip. B 2nd digit abduction. 3 x 15. 6 Descriptor UEB x 10 minutes. Seated. Forwards direction. [address] and hold. Opposition of thumb and 2nd digit w/ use of tennis ball. x 5 sec hold. 1 x 10. 3 Descriptor Wrist strengthening. Weighted spherical ball. Wrist arc; RD <-> UD w/ wrist in ext. 2 x 15. 2.2# weighted spherical ball. N/A 04/18/23 Wrist ext/TT touch. 3 x 15. 2. 2# weighted spherical ball. 2 Descriptor ROM/Self-myofascial release/ Glides Self-myofascial thumb adductor release. Bilaterally executed . x 2 Passive wrist stretches. Passive wrist flex w/ elbow ext and forearm pronation. Passive wrist ext w/ elbow ext and forearm supination. Hold 20 sec. Bilaterally executed. Passive wrist stretches. Passive wrist RD w/ elbow ext and forearm pronation. Passive wrist UD w/ elbow ext and forearm pronation. Hold 20 sec . Bilaterally executed. Modified prayer pose to support MPJ ext of digits 2-5. x 4 each direction. Tendon glides. x 7 cycles. Bilaterally executed. 1 Descriptor Wrist strengthening. Theraband . R wrist ext. 2 x 15. TB #3. Elbow 90 degrees flex. R wrist flex. 2 x 15. TB #3. Elbow [address]. R wrist [address]. 2 x 15. TB #3. Elbow 90 degrees flex. N/A 04/04/23 = d/t c/o pain. R wrist UD. 3 x 15. TB #3. TT w / forearm pronation. Elbow extension. - Assessment Assessment of Improvement Opal presented with increased discomfort w/ plan to follow- up w/ PCP 04/20/23 given not feeling particularly well past week w/ reported full body aches/pain w/ some relief from prescribed pain medication. Opal reported that she and medical staff are still trying to identify the 'underlying problem'. Opal has been actively using the gyroscope bilaterally in both directions for strengthening of wrists pretty consistently. Although she did not tolerate distal UE strengthening compared to previous sessions; given c/o discomfort and limitations w/ strengthening did not re- assess wrist strength which will need to be done in near future. Opal has also verbalized concern of mild joint deformities of bilateral 2nd digits w/ mild medial rotation of L 2nd digit at PIPJ and ulnar tendencies of 2nd digits at PIPJ; thus, she may benefit from CHT evaluation to determine if night splints of the 2nd digits would be appropriate given that custom/made splints are not provided at this clinic. Opal would likely continue to benefit from outpatient OT to upgrade/add to current distal UE home exercise program, joint protection education/ discussion re: possible adaptive equipment/ compensatory strategies to support participation in meaningful activities, and to address bilateral hand/wrist pain and improve distal UE strength. It is also recommended that a referral to a certified hand therapist/ CHT be considered so that splint options may be discussed/fitted and/or provided as seen by clinician. Home Exercise Program 03/07/23 = Education re: paraffin bath for home modality use. Provided written /visual instructions for TB wrist strengthening. 02/21/23 = Provided with TB #2 for wrist strengthening exercises; instructed in resisted wrist ext, wrist flex , wrist RD, wrist UD, w/ rec 3 x 15 reps 3 x a week or every other day. 02/14/23 = Discussed utilization of spring loaded scissors. Instructed in isometric hold of 2-3 seconds w/ opposition w/ active flexion of digits 3-5 to discourage add at 2nd MPJs w/ thumb to 2nd digit opposition (3 x 10 reps). Instructed in self-myofascial release of thumb adductor w/ hold of 20- 30 sec x 2 total reps (alt thumbs) on daily basis. Instructed in alt modified prayer pose w/ use of wall w/ elbow ext; reviewed 20-30 sec hold. - Plan Therapy Recommendations Continue with Current Program, Advance per Rehabilitation Protocol Comment 6 weeks Frequency of Treatment Once a Week Therapeutic Contents Active Range of Motion, Adaptive Equipment Education, Client Education,Functional Activities,Home Exercise Program,Joint Protection, Manual Therapy,Education,Self- Care,Stretching/Flexibility Activities,Therapeutic Activities,Therapeutic Exercises,Modalities Modalities As Needed,As Prescribed Additional Types of Modalities Heat/Ice/Contrast Baths/ Paraffin bath Electronically Signed by: Yesica Carrington OT 04/19/23 1644 If you are in agreement with this Plan of Care, please return a signed and dated copy. I have reviewed this Plan of Care and certify that the skilled therapy services above are required to meet the patient?s needs. Physician Signature Date Printed Name and Credentials Clinical Instructor Signature Printed Name and Credentials
--- NOTE | 2023-04-25 11:30 | OT.OP.TRT ---
Visit Care Team Role Provider Type George Garcia MD Family Provider Non-Staff Primary Care Provider Specialty: Internal Medicine Address: [address] [place], [address] Email: Kamala Cabral MD Attending Provider Non-Staff Referring Provider Specialty: Internal Medicine Address: [place], [address] Email: Occupational Therapy Treatment Note OT Outpatient Treatment Note - Adult Start: 02/14/23 10:35 Freq: Status: Active Protocol: Document 04/25/23 11:19 AMS (Rec: 04/25/23 11:29 [facility] [id number]) OT Outpatient Adult Treatment Note Session Time Visit Start Time 09:30 Visit Stop Time 10:25 Total Visit Minutes 55 Visit Information Plan of Care Dates 04/11/23 - 05/23/22 Insurance Information [facility]; pre-auth all visits Setting Treatment Setting Outpatient Care Visit Type Note Type Treatment Note General Information General Information Opal is a 68 year-old right hand dominant female referred to outpatient OT secondary to diagnosis of extensor tenosynovitis of the R wrist. 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 - Subjective Identification Type Name Identification Reconciled With Medical Record Observations Opal is monitoring body's response to different types of foods; PCP is monitoring liver, HTN/high heart rate. Dairy Hand made no new changes; continue w/ therapy. Patient/Caregiver Compliance with Home Excellent Exercise Program - Objective Objective Measurements Please refer to below for progress towards meeting established OT goals: 02/28/23 = Typically forms fists when pushing up off of something. Short Term Goals 1. Opal will present with increased ability to engage in meaningful activities d/t bilateral increased wrist strength: 1a. MMT R wrist flex 4+/5 1b. MMT L wrist flex 4+/5 1c. MMT R wrist ext 4+/5 1d. MMT L wrist ext 4+/5 Web Designer Developer Goals 1. Opal will be modified independent with distal UE home exercise program utilizing provided written and visual instructions from therapist. 2. Opal will verbalize 100% understanding of basic joint protection principles of the distal UEs referencing handout as needed. 3. Opal will present with increased ability to actively engage in meaningful activities as evidenced by the followina. Opal will obtain a QuickDASH UE Outcome Measure Score of 25.00 or less. 3b. Opal will indicate 2 or less out of 10 on the Pain Assessment Grid relative to distal UEs. - Treatment 1 Descriptor Paraffin bath. x 10 minutes. B distal UEs/hands/wrists. Treatment x 10 minutes. Skin was intact pre- and post- treatment. Exercises 8 Descriptor Red flexbar. Wrist/Forearm strengthening. Wrist flex/ext. 1 x 10. Red TB flexbar. Wrist RD/UD. 1 x 10. Red TB flexbar. Forearm supination. 1 x 10. Red TB flexbar. Forearm pronation. 1 x 10. Red TB flexbar. 7 Descriptor Finger strengthening. TB #2 strip. B 2nd digit abduction. 3 x 15. 6 Descriptor UEB x 10 minutes. Seated. Forwards direction. [address] and hold. Opposition of thumb and 2nd digit w/ use of tennis ball. x 5 sec hold. 1 x 10. 4 Descriptor Wrist stabilization/weight bearing. Modified s-s w/ use of chair w / bilateral arm rests and pushing self-up. 1 x 8. 3 Descriptor Wrist strengthening. Weighted spherical ball. Wrist arc; RD <-> UD w/ wrist in ext. 2 x 15. 2.2# weighted spherical ball. N/A 04/18/23 Wrist ext/TT touch. 3 x 15. 2. 2# weighted spherical ball. 2 Descriptor ROM/Self-myofascial release/ Glides Self-myofascial thumb adductor release. Bilaterally executed . x 2. Tendon glides. x 8 cycles. Bilaterally executed. N/A 04/25/23 Passive wrist stretches. Passive wrist flex w/ elbow ext and forearm pronation. Passive wrist ext w/ elbow ext and forearm supination. Hold 20 sec. Bilaterally executed. Passive wrist stretches. Passive wrist RD w/ elbow ext and forearm pronation. Passive wrist UD w/ elbow ext and forearm pronation. Hold 20 sec . Bilaterally executed. Modified prayer pose to support MPJ ext of digits 2-5. x 4 each direction. 1 Descriptor Wrist strengthening. Theraband . R wrist ext. 3 x 15. TB #3. Elbow 90 degrees flex. R wrist flex. 3 x 15. TB #3. Elbow 90 [address] flex. R wrist [address]. 3 x 15. TB #3. Elbow 90 degrees flex. R wrist UD. 3 x 15. TB #3. TT w/ forearm pronation. Elbow extension. - Assessment Assessment of Improvement Change to medications (HTN); monitoring of food intake ( food sensitivities)/liver; monitoring of energy/body aches/pain. Opal has been actively using the gyroscope bilaterally in both directions for strengthening of wrists pretty consistently. Opal has verbalized concern of mild joint deformities of bilateral 2nd digits w/ mild medial rotation of L 2nd digit at PIPJ and ulnar tendencies of 2nd digits at PIPJ; thus, she may benefit from CHT evaluation to determine if night splints of the 2nd digits would be appropriate given that custom/made splints are not provided at this clinic. Introduced red flex bar as potential option for home use for bilateral forearm /wrist strengthening; discussed benefits compared to TB (grasp/ease of transitioning between distal UE strengthening exercises) and modifications (exclusion of thumb as needed). (+) response to this exercise tool . Overall, good session. Opal would likely continue to benefit from outpatient OT to upgrade/add to current distal UE home exercise program, joint protection education/ discussion re: possible adaptive equipment/ compensatory strategies to support participation in meaningful activities, and to address bilateral hand/wrist pain and improve distal UE strength. It is also recommended that a referral to a certified hand therapist/ CHT be considered so that splint options may be discussed/fitted and/or provided as seen by clinician. Home Exercise Program 03/07/23 = Education re: paraffin bath for home modality use. Provided written /visual instructions for TB wrist strengthening. 02/21/23 = Provided with TB #2 for wrist strengthening exercises; instructed in resisted wrist ext, wrist flex , wrist RD, wrist UD, w/ rec 3 x 15 reps 3 x a week or every other day. 02/14/23 = Discussed utilization of spring loaded scissors. Instructed in isometric hold of 2-3 seconds w/ opposition w/ active flexion of digits 3-5 to discourage add at 2nd MPJs w/ thumb to 2nd digit opposition (3 x 10 reps). Instructed in self-myofascial release of thumb adductor w/ hold of 20- 30 sec x 2 total reps (alt thumbs) on daily basis. Instructed in alt modified prayer pose w/ use of wall w/ elbow ext; reviewed 20-30 sec hold. -
--- NOTE | 2023-05-02 16:00 | OT.OP.TRT ---
Visit Care Team Role Provider Type George Garcia MD Family Provider Non-Staff Primary Care Provider Specialty: Internal Medicine Address: [address] [place], [address] Email: Kamala Cabral MD Attending Provider Non-Staff Referring Provider Specialty: Internal Medicine Address: [place], [address] Email: Occupational Therapy Treatment Note OT Outpatient Treatment Note - Adult Start: 02/14/23 10:35 Freq: Status: Active Protocol: Document 05/02/23 16:00 AMS (Rec: 05/03/23 09:17 AMS [id number]) OT Outpatient Adult Treatment Note Session Time Visit Start Time 09:30 Visit Stop Time 10:25 Total Visit Minutes 55 Visit Information Plan of Care Dates 04/11/23 - 05/23/22 Insurance Information [facility]; pre-auth all visits Setting Treatment Setting Outpatient Care Visit Type Note Type Treatment Note General Information General Information Opal is a 68 year-old right hand dominant female referred to outpatient OT secondary to diagnosis of extensor tenosynovitis of the R wrist. 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 Patient/Caregiver Compliance with Home Excellent Exercise Program - Objective Objective Measurements Please refer to below for progress towards meeting established OT goals: 02/28/23 = Typically forms fists when pushing up off of something. Short Term Goals 1. Opal will present with increased ability to engage in meaningful activities d/t bilateral increased wrist strength: 1a. MMT R wrist flex 4+/5 1b. MMT L wrist flex 4+/5 1c. MMT R wrist ext 4+/5 1d. MMT L wrist ext 4+/5 Custodial Goals 1. Opal will be modified independent with distal UE home exercise program utilizing provided written and visual instructions from therapist. 2. Opal will verbalize 100% understanding of basic joint protection principles of the distal UEs referencing handout as needed. 3. Opal will present with increased ability to actively engage in meaningful activities as evidenced by the followina. Opal will obtain a QuickDASH UE Outcome Measure Score of 25.00 or less. 3b. Opal will indicate 2 or less out of 10 on the Pain Assessment Grid relative to distal UEs. - Treatment 1 Descriptor Paraffin bath. x 10 minutes. B distal UEs/hands/wrists. Treatment x 10 minutes. Skin was intact pre- and post- treatment. Exercises 8 Descriptor Red flexbar. Wrist/Forearm strengthening. Wrist flex/ext. 2 x 10. Red TB flexbar. Wrist RD/UD. 2 x 10. Red TB flexbar. Forearm supination. 2 x 10. Red TB flexbar. Forearm pronation. 2 x 10. Red TB flexbar. 6 Descriptor UEB x 10 minutes. Seated. Forwards direction. [address] and hold. Opposition of thumb and 2nd digit w/ use of tennis ball. x 5 sec hold. 1 x 10. 2 Descriptor ROM/Self-myofascial release/ Glides Self-myofascial thumb adductor release. Bilaterally executed . x 2. Tendon glides. x 10 cycles. Bilaterally executed. N/A 04/25/23 Passive wrist stretches. Passive wrist flex w/ elbow ext and forearm pronation. Passive wrist ext w/ elbow ext and forearm supination. Hold 20 sec. Bilaterally executed. Passive wrist stretches. Passive wrist RD w/ elbow ext and forearm pronation. Passive wrist UD w/ elbow ext and forearm pronation. Hold 20 sec . Bilaterally executed. Modified prayer pose to support MPJ ext of digits 2-5. x 4 each direction. 1 Descriptor Wrist strengthening. Theraband . R wrist ext. 3 x 15. TB #3. Elbow 90 degrees flex. R wrist flex. 3 x 15. TB #3. Elbow 90 degrees flex. R wrist RD. 3 x 15. TB #3. Elbow 90 degrees flex. R wrist UD. 3 x 15. TB #3. TT w/ forearm pronation. Elbow extension. - Assessment Assessment of Improvement Appointment to see GI specialist has been made. Has ordered flex bars for home use for distal UE strengthening. Opal has been actively using the gyroscope bilaterally in both directions for strengthening of wrists pretty consistently. Opal has verbalized concern of mild joint deformities of bilateral 2nd digits w/ mild medial rotation of L 2nd digit at PIPJ and ulnar tendencies of 2nd digits at PIPJ; thus, she may benefit from CHT evaluation to determine if night splints of the 2nd digits would be appropriate given that custom/made splints are not provided at this clinic. Overall, good session. Opal would likely continue to benefit from outpatient OT to upgrade/add to current distal UE home exercise program, joint protection education/ discussion re: possible adaptive equipment/ compensatory strategies to support participation in meaningful activities, and to address bilateral hand/wrist pain and improve distal UE strength. It is also recommended that a referral to a certified hand therapist/ CHT be considered so that splint options may be discussed/fitted and/or provided as seen by clinician. Home Exercise Program 03/07/23 = Education re: paraffin bath for home modality use. Provided written /visual instructions for TB wrist strengthening. 02/21/23 = Provided with TB #2 for wrist strengthening exercises; instructed in resisted wrist ext, wrist flex , wrist RD, wrist UD, w/ rec 3 x 15 reps 3 x a week or every other day. 02/14/23 = Discussed utilization of spring loaded scissors. Instructed in isometric hold of 2-3 seconds w/ opposition w/ active flexion of digits 3-5 to discourage add at 2nd MPJs w/ thumb to 2nd digit opposition (3 x 10 reps). Instructed in self-myofascial release of thumb adductor w/ hold of 20- 30 sec x 2 total reps (alt thumbs) on daily basis. Instructed in alt modified prayer pose w/ use of wall w/ elbow ext; reviewed 20-30 sec hold. - Plan Therapy Recommendations Continue with Current Program, Advance per Rehabilitation Protocol
--- NOTE | 2023-05-09 11:23 | OT.OP.TRT ---
Visit Care Team Role Provider Type George Garcia MD Family Provider Non-Staff Primary Care Provider Specialty: Internal Medicine Address: [address] [place], [address] Email: Kamala Cabral MD Attending Provider Non-Staff Referring Provider Specialty: Internal Medicine Address: [place], [address] Email: Occupational Therapy Treatment Note OT Outpatient Treatment Note - Adult Start: 02/14/23 10:35 Freq: Status: Active Protocol: Document 05/09/23 11:11 AMS (Rec: 05/09/23 11:23 [facility] [id number]) OT Outpatient Adult Treatment Note Session Time Visit Start Time 09:30 Visit Stop Time 10:15 Total Visit Minutes 45 Visit Information Plan of Care Dates 04/11/23 - 05/23/22 Insurance Information [facility]; pre-auth all visits Setting Treatment Setting Outpatient Care Visit Type Note Type Treatment Note General Information General Information Opal is a 68 year-old right hand dominant female referred to outpatient OT secondary to diagnosis of extensor tenosynovitis of the R wrist. 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 - Subjective Identification Type Name Identification Reconciled With Medical Record Observations Opal reported that she is seeing her GI specialist in June; she is continuing to monitor food intake. She is actively utilizing flex bars and the gyroscope in the home for strengthening. She reported primary difficulty w/ motor planning of L wrist in CCW direction in which she has no trouble w/ the R. Patient/Caregiver Compliance with Home Excellent Exercise Program - Objective Objective Measurements Please refer to below for progress towards meeting established OT goals: 02/28/23 = Typically forms fists when pushing up off of something. Short Term Goals 1. Opal will present with increased ability to engage in meaningful activities d/t bilateral increased wrist strength: 1a. MMT R wrist flex 4+/5 1b. MMT L wrist flex 4+/5 1c. MMT R wrist ext 4+/5 1d. MMT L wrist ext 4+/5 Residential Goals 1. Opal will be modified independent with distal UE home exercise program utilizing provided written and visual instructions from therapist. 2. Opal will verbalize 100% understanding of basic joint protection principles of the distal UEs referencing handout as needed. 3. Opal will present with increased ability to actively engage in meaningful activities as evidenced by the followina. Opal will obtain a QuickDASH UE Outcome Measure Score of 25.00 or less. 3b. Opal will indicate 2 or less out of 10 on the Pain Assessment Grid relative to distal UEs. - Treatment 1 Descriptor Paraffin bath. x 10 minutes. B distal UEs/hands/wrists. Treatment x 10 minutes. Skin was intact pre- and post- treatment. Exercises 8 Descriptor Red flexbar. Wrist/Forearm strengthening. Wrist flex/ext. 2 x 10. Red TB flexbar. Wrist RD/UD. 2 x 10. Red TB flexbar. Forearm supination. 2 x 10. Red TB flexbar. Forearm pronation. 2 x 10. Red TB flexbar. Wrist flexion w/ 'n'. 2 x 5. Red TB flexbar. 7 Descriptor Finger strengthening. TB #2 strip. B 2nd digit abduction. 3 x 15. 6 Descriptor UEB x 10 minutes. Seated. Forwards direction. [address] and hold. Opposition of thumb and 2nd digit w/ use of tennis ball. x 5 sec hold. 1 x 10. 2 Descriptor ROM/Self-myofascial release/ Glides Self-myofascial thumb adductor release. Bilaterally executed . x 2. Passive wrist stretches. Passive wrist flex w/ elbow ext and forearm pronation. Passive wrist ext w/ elbow ext and forearm supination. Hold 20 sec. Bilaterally executed. Passive wrist stretches. Passive wrist RD w/ elbow ext and forearm pronation. Passive wrist UD w/ elbow ext and forearm pronation. Hold 20 sec . Bilaterally executed. Modified prayer pose to support MPJ ext of digits 2-5. x 4 each direction. N/A 05/09/23 Tendon glides. x 10 cycles. Bilaterally executed. 1 Descriptor Wrist strengthening. Theraband . R wrist ext. 3 x 15. TB #3. Elbow 90 degrees flex. R wrist flex. 3 x 15. TB #3. Elbow 90 degrees flex. R wrist RD. 3 x 15. TB #3. Elbow 90 degrees flex. R wrist UD. 3 x 15. TB #3. TT w/ forearm pronation. Elbow extension. - Assessment Assessment of Improvement Appointment to see GI specialist has been made for June; continues to monitor food intake. (+) use of various colors of flexbars in the home for strengthening; also continues to utilize gyroscope w/ primary difficulty coordinating CCW wrist circles w/ the left. Uses flex bar w/ wrist/forearm strengthening; in addition to exercises instructed in, has also supination w/ wrist ext which provides increased resistance. It is important to note that she is right hand dominant and this may influence wrist coordination. Opal has verbalized concern of mild joint deformities of bilateral 2nd digits w/ mild medial rotation of L 2nd digit at PIPJ and ulnar tendencies of 2nd digits at PIPJ; thus, she may benefit from CHT evaluation to determine if night splints of the 2nd digits would be appropriate given that custom/made splints are not provided at this clinic. Overall, good session. Opal would likely continue to benefit from outpatient OT to upgrade/add to current distal UE home exercise program, joint protection education/ discussion re: possible adaptive equipment/ compensatory strategies to support participation in meaningful activities, and to address bilateral hand/wrist pain and improve distal UE strength. It is also recommended that a referral to a certified hand therapist/ CHT be considered so that splint options may be discussed/fitted and/or provided as seen by clinician. Home Exercise Program 03/07/23 = Education re: paraffin bath for home modality use. Provided written /visual instructions for TB wrist strengthening. 02/21/23 = Provided with TB #2 for wrist strengthening exercises; instructed in resisted wrist ext, wrist flex , wrist RD, wrist UD, w/ rec 3 x 15 reps 3 x a week or every other day. 02/14/23 = Discussed utilization of spring loaded scissors. Instructed in isometric hold of 2-3 seconds w/ opposition w/ active flexion of digits 3-5 to discourage add at 2nd MPJs w/ thumb to 2nd digit opposition (3 x 10 reps). Instructed in self-myofascial release of thumb adductor w/ hold of 20- 30 sec x 2 total reps (alt thumbs) on daily basis. Instructed in alt modified prayer pose w/ use of wall w/ elbow ext; reviewed 20-30 sec hold. - Plan Therapy Recommendations Continue with Current Program, Advance per Rehabilitation Protocol
--- NOTE | 2023-05-16 16:06 | OT.OP.TRT ---
Visit Care Team Role Provider Type George Garcia MD Family Provider Non-Staff Primary Care Provider Specialty: Internal Medicine Address: [address] [place], [address] Email: Kamala Cabral MD Attending Provider Non-Staff Referring Provider Specialty: Internal Medicine Address: [place], [address] Email: Occupational Therapy Treatment Note OT Outpatient Treatment Note - Adult Start: 02/14/23 10:35 Freq: Status: Active Protocol: Document 05/16/23 16:00 AMS (Rec: 05/16/23 16:06 [facility] [id number]) OT Outpatient Adult Treatment Note Session Time Visit Start Time 14:30 Visit Stop Time 15:20 Total Visit Minutes 50 Visit Information Plan of Care Dates 04/11/23 - 05/23/22 Insurance Information [facility]; pre-auth all visits Setting Treatment Setting Outpatient Care Visit Type Note Type Treatment Note General Information General Information Opal is a 68 year-old right hand dominant female referred to outpatient OT secondary to diagnosis of extensor tenosynovitis of the R wrist. 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 - Subjective Identification Type Name Identification Reconciled With Medical Record Observations Indicated hands/wrists were sore d/t everyday tasks ( folding laundry, doing dishes) . 05/09/23 = Opal reported that she is seeing her GI specialist in June; she is continuing to monitor food intake. She is actively utilizing flex bars and the gyroscope in the home for strengthening. She reported primary difficulty w/ motor planning of L wrist in CCW direction in which she has no trouble w/ the R. Patient/Caregiver Compliance with Home Excellent Exercise Program - Objective Objective Measurements Please refer to below for progress towards meeting established OT goals: 02/28/23 = Typically forms fists when pushing up off of something. Short Term Goals 1. Opal will present with increased ability to engage in meaningful activities d/t bilateral increased wrist strength: 1a. MMT R wrist flex 4+/5 1b. MMT L wrist flex 4+/5 1c. MMT R wrist ext 4+/5 1d. MMT L wrist ext 4+/5 Retirement Goals 1. Opal will be modified independent with distal UE home exercise program utilizing provided written and visual instructions from therapist. 2. Opal will verbalize 100% understanding of basic joint protection principles of the distal UEs referencing handout as needed. 3. Opal will present with increased ability to actively engage in meaningful activities as evidenced by the followina. Opal will obtain a QuickDASH UE Outcome Measure Score of 25.00 or less. 3b. Opal will indicate 2 or less out of 10 on the Pain Assessment Grid relative to distal UEs. - Treatment 1 Descriptor Paraffin bath. x 10 minutes. B distal UEs/hands/wrists. Treatment x 10 minutes. Skin was intact pre- and post- treatment. Exercises 8 Descriptor Red flexbar. Wrist/Forearm strengthening. Wrist flex/ext. 2 x 10. Red TB flexbar. Wrist RD/UD. 2 x 10. Red TB flexbar. Forearm supination. 2 x 10. Red TB flexbar. Forearm pronation. 2 x 10. Red TB flexbar. Wrist flexion w/ 'n'. 2 x 5. Red TB flexbar. 6 Descriptor UEB x 10 minutes. Seated. Forwards direction. [address] and hold. Opposition of thumb and 2nd digit w/ use of tennis ball. x 5 sec hold. 1 x 10. 2 Descriptor ROM/Self-myofascial release/ Glides Self-myofascial thumb adductor release. Bilaterally executed . x 2. Passive wrist stretches. Passive wrist flex w/ elbow ext and forearm pronation. Passive wrist ext w/ elbow ext and forearm supination. Hold 20 sec. Bilaterally executed. Passive wrist stretches. Passive wrist RD w/ elbow ext and forearm pronation. Passive wrist UD w/ elbow ext and forearm pronation. Hold 20 sec . Bilaterally executed. Modified prayer pose to support MPJ ext of digits 2-5. x 4 each direction. N/A 05/09/23 Tendon glides. x 10 cycles. Bilaterally executed. - Assessment Assessment of Improvement (+) uses various color personal flex bars in the home w/ wrist/forearm strengthening; she primarily focuses on strengthening w/ forearm supination, forearm pronation, wrist flex/ext, forearm supination plus wrist flex. She verbalized that she feels that her distal UEs are 'getting stronger' and the flex bars do not aggravate/ lead to finger/thumb discomfort w/ use. She is observed to cease exercises when 'it is starting to hurt'. Opal has verbalized concern of mild joint deformities of bilateral 2nd digits w/ mild medial rotation of L 2nd digit at PIPJ and ulnar tendencies of 2nd digits at PIPJ; thus, she may benefit from CHT evaluation to determine if night splints of the 2nd digits would be appropriate given that custom/made splints are not provided at this clinic. Overall, good session. Need to identify primary color use of red vs blue for home strengthening. Opal would likely continue to benefit from outpatient OT to upgrade/add to current distal UE home exercise program, joint protection education/ discussion re: possible adaptive equipment/ compensatory strategies to support participation in meaningful activities, and to address bilateral hand/wrist pain and improve distal UE strength. It is also recommended that a referral to a certified hand therapist/ CHT be considered so that splint options may be discussed/fitted and/or provided as seen by clinician. Home Exercise Program 03/07/23 = Education re: paraffin bath for home modality use. Provided written /visual instructions for TB wrist strengthening. 02/21/23 = Provided with TB #2 for wrist strengthening exercises; instructed in resisted wrist ext, wrist flex , wrist RD, wrist UD, w/ rec 3 x 15 reps 3 x a week or every other day. 02/14/23 = Discussed utilization of spring loaded scissors. Instructed in isometric hold of 2-3 seconds w/ opposition w/ active flexion of digits 3-5 to discourage add at 2nd MPJs w/ thumb to 2nd digit opposition (3 x 10 reps). Instructed in self-myofascial release of thumb adductor w/ hold of 20- 30 sec x 2 total reps (alt thumbs) on daily basis. Instructed in alt modified prayer pose w/ use of wall w/ elbow ext; reviewed 20-30 sec hold. - Plan Therapy Recommendations Continue with Current Program, Advance per Rehabilitation Protocol
--- NOTE | 2023-05-30 12:26 | OT.OPPOC ---
Physical, Occupational & Speech Therapy At [facility] Opal Prince [id number] Visit Care Team Role Provider Type George Garcia MD Family Provider Non-Staff Primary Care Provider Address: [address] [place], [address] Kamala Cabral MD Attending Provider Non-Staff Referring Provider Address: [id number] [place] [address], [id number] Occupational Therapy Plan of Care OT Outpatient Adult Evaluation Start: 02/14/23 10:35 Freq: Status: Active Protocol: Document 02/14/23 10:36 AMS (Rec: 02/14/23 11:25 AMS [id number]) General Information - Adult Visit Information Plan of Care Dates 02/14/23 - 04/11/23 Insurance Information [facility]; pre-auth all visits Session Time Visit Start Time 08:40 Visit Stop Time 09:25 Total Visit Minutes 45 Setting Treatment Setting Outpatient Care Visit Type Note Type Initial Evaluation Identification Identification Confirmed Yes Identification Confirmed By Self Goals Treatment Treatment Initiated home exercise program. Short Term Goals Short Term Goals 1. Opal will present with increased ability to engage in meaningful activities d/t bilateral increased wrist strength: 1a. MMT R wrist flex 4+/5 1b. MMT L wrist flex 4+/5 1c. MMT R wrist ext 4+/5 1d. MMT L wrist ext 4+/5 [facility] Goals Director Business Goals 1. Opal will be modified independent with distal UE home exercise program utilizing provided written and visual instructions from therapist. 2. Opal will verbalize 100% understanding of basic joint protection principles of the distal UEs referencing handout as needed. 3. Opal will present with increased ability to actively engage in meaningful activities as evidenced by the followina. Opal will obtain a QuickDASH UE Outcome Measure Score of 25.00 or less. 3b. Opal will indicate 2 or less out of 10 on the Pain Assessment Grid relative to distal UEs. Assessment/Plan Assessment Treatment Assessment Opal is a 68 year-old right hand dominant female referred to outpatient OT secondary to diagnosis of extensor tenosynovitis of the wrist. 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 Medical history is significant for arthritis, headaches, L TKR, asthma, thyroid disorder, TBI/concussion (1966), and removal of gall bladder. Opal also reported that she was diagnosed w/ RA in Apr . Med list to be scanned into EMR. She is taking meloxicam ( arthritis medication) and applying topical pain medication to wrists/hands; she is also taking tramadol as needed for pain management. She has multiple wrist braces that she has not worn for over a year; wears 2 different types of gloves to keep hands warm and utilizes personal hot tub. 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 Patient goals = maintain range of motion of hands. Opal indicated 5 out of 10 pain on the Hand/Wrist Pain Assessment Grid relative to volar/dorsal surfaces of bilateral wrists, bilateral dorsal 2nd/3rd digits, and volar bilateral 2nd/3rd digits w/ shading into the palms of hands. QuickDASH UE Outcome Measure Score = 63.64. (+) tenderness to palpation of bilateral CMCJs. (+) bilateral thumb adductor tightness. Able to oppose thumbs bilaterally to each digit pad w/ cueing to encourage flex at MP and IP of bilateral thumbs . Tendency into adduction of bilateral 2nd MPJs w/ tip-to- tip of thumb/2nd digits. ROM Measurements: 50 degrees active pain-free R wrist flex vs 60 degrees active pain-free L wrist flexion. 73 degrees active pain-free R wrist ext vs 68 degrees active pain-free L wrist ext. 15 degrees active pain-free R wrist RD and 15 degrees active pain- free L wrist RD. 26 degrees active pain-free R wrist UD vs 30 degrees active pain-free L wrist UD. Strength Findings: MMT R wrist flex 4/5 vs MMT L wrist flex 4/5. MMT R wrist ext 4/5 vs MMT L wrist ext 4/5. MMT R wrist RD 4+/5 vs MMT L wrist RD 4/5. MMT R wrist UD 4+/5 vs MMT L wrist UD 4/5. 27# of force R backend tester (vs 49.6 +/- 9.7 when compared to 65-69 year- old female peers) 26# of force L backend tester (vs 41.0 +/- 8.2 when compared to 65-69 year-old female peers) dynamometer II w / elbows in 90 degrees flex. 23# of force R backend tester vs 30# of force L backend tester dynamometer II w/ elbows extended. 8# of force R lateral pinch (vs 15.0 +/- 2 .6 when compared to 65-69 year -old female peers) 9# of force L lateral pinch (vs 14.3 +/- 2.8 when compared to 65-69 year-old female peers). 5# of force R tip pinch (vs 10.6 +/- 2.0 when compared to 65-69 year-old female peers) 6.5# of force L tip pinch (vs 10.5 +/ - 2.4 when compared to 65-69 year-old female peers). 6# of force R 3-jaw pinch (vs 14.2 + /- 3.1 when compared to 65-69 year-old female peers) 8# of force L 3-jaw pinch (vs 13.7 + /- 3.4 when compared to 65-69 year-old female peers). Currently Opal does daily opposition of digits, modified prayer pose for distal wrist/ finger range of motion. Opal would likely benefit from outpatient OT to upgrade/add to current distal UE home exercise program, joint protection education/ discussion re: possible adaptive equipment/ compensatory strategies to support participation in meaningful activities, and to address bilateral hand/wrist pain and improve distal UE strength. Home Exercise Program 02/14/23 = Discussed utilization of spring loaded scissors. Instructed in isometric hold of 2-3 seconds w/ opposition w/ active flexion of digits 3-5 to discourage add at 2nd MPJs w/ thumb to 2nd digit opposition (3 x 10 reps). Instructed in self-myofascial release of thumb adductor w/ hold of 20- 30 sec x 2 total reps (alt thumbs) on daily basis. Instructed in alt modified prayer pose w/ use of wall w/ elbow ext; reviewed 20-30 sec hold. Plan Length of treatment (weeks) 8 Plan of Care Start Date 02/14/23 Plan of Care End Date 04/11/23 Treatment Frequency Once a Week Therapeutic Contents Active Range of Motion, Adaptive Equipment Education, Client Education,Functional Activities,Home Exercise Program,Joint Protection, Manual Therapy,Education, Neurodevelopment Treatment, Neuromuscular Re-Education, Self-Care,Stretching/ Flexibility Activities, Therapeutic Activities, Therapeutic Exercises, Modalities Modalities As Needed,As Prescribed Additional Types of Modalities Heat/Ice/Contrast baths/US Functional Wrist/Hand Scan Hand Side Sensory Assessment Sensory Profile2 OT Outpatient Treatment Note - Adult Start: 02/14/23 10:35 Freq: Status: Active Protocol: Document 05/30/23 12:12 AMS (Rec: 05/30/23 12:25 AMS [id number]) OT Outpatient Adult Treatment Note Session Time Visit Start Time 09:45 Visit Stop Time 10:28 Total Visit Minutes 43 Visit Information Plan of Care Dates 05/23/23 - 07/18/23 Insurance Information [facility]; pre-auth all visits Setting Treatment Setting Outpatient Care Visit Type Note Type Progress Note General Information General Information Opal is a 68 year-old right hand dominant female referred to outpatient OT secondary to diagnosis of extensor tenosynovitis of the R wrist. 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 - Subjective Identification Type Name Identification Reconciled With Medical Record Observations Pain Assessment Grid completed ; indication of 3 out of 10 on pain scale relative to volar/ dorsal surfaces of bilateral wrists, bilateral volar/dorsal surfaces of 2nd digit and volar/dorsal surfaces of MPJs 2-5. QuickDASH UE Outcome Measure Score = 47.73 05/09/23 = Opal reported that she is seeing her GI specialist in June; she is continuing to monitor food intake. She is actively utilizing flex bars and the gyroscope in the home for strengthening. She reported primary difficulty w/ motor planning of L wrist in CCW direction in which she has no trouble w/ the R. Patient/Caregiver Compliance with Home Excellent Exercise Program - Objective Objective Measurements Please refer to below for progress towards meeting established OT goals: 02/28/23 = Typically forms fists when pushing up off of something. Short Term Goals 1. Opal will present with increased ability to engage in meaningful activities d/t bilateral increased wrist strength: 1a. MMT R wrist flex 4+/5 1b. MMT L wrist flex 4+/5 1c. MMT R wrist ext 4+/5 1d. MMT L wrist ext 4+/5 [facility] Goals 1. Opal will be modified independent with distal UE home exercise program utilizing provided written and visual instructions from therapist. 05/30/23 = 75% met 2. Opal will verbalize 100% understanding of basic joint protection principles of the distal UEs referencing handout as needed. 3. Opal will present with increased ability to actively engage in meaningful activities as evidenced by the followina. Opal will obtain a QuickDASH UE Outcome Measure Score of 25.00 or less. = 47.73; versus initial 63. 64 3b. Opal will indicate 2 or less out of 10 on the Pain Assessment Grid relative to distal UEs. 05/30/23 = 75% met; 3 out of 10 versus initial 5 out of 10 - Treatment 1 Descriptor Paraffin bath. x 10 minutes. B distal UEs/hands/wrists. Treatment x 10 minutes. Skin was intact pre- and post- treatment. Exercises 8 Descriptor Red flexbar. Wrist/Forearm strengthening. Wrist flex/ext. 2 x 10. Red TB flexbar. Wrist flex/ext w/ forearm pronation. 2 x 10. Wrist flex/ext w/ forearm supination. 2 x 10. 6 Descriptor UEB x 10 minutes. Seated. Forwards direction. [address] and hold. Opposition of thumb and 2nd digit w/ use of tennis ball. x 5 sec hold. 1 x 10. 2 Descriptor ROM/Self-myofascial release/ Glides Self-myofascial thumb adductor release. Bilaterally executed . x 2. Passive wrist stretches. Passive wrist flex w/ elbow ext and forearm pronation. Passive wrist ext w/ elbow ext and forearm supination. Hold 20 sec. Bilaterally executed. Passive wrist stretches. Passive wrist RD w/ elbow ext and forearm pronation. Passive wrist UD w/ elbow ext and forearm pronation. Hold 20 sec . Bilaterally executed. Modified prayer pose to support MPJ ext of digits 2-5. x 4 each direction. N/A 12/20/23 Tendon glides. x 10 cycles. Bilaterally executed. - Assessment Assessment of Improvement Opal has made some progress since initial evaluation; there has been a reduction in pain/discomfort of bilateral wrists/hands (from initial 5 to 3) and a reduction in QuickDASH UE Outcome Measure Score of 47.73 versus 63.64. There has also been a progression in home exercise program/distal UE therapeutic exercises. She is using various color personal flex bars in the home w/ wrist/ forearm strengthening; she primarily focuses on strengthening w/ forearm supination, forearm pronation, wrist flex/ext, forearm supination plus wrist flex and continues to utilize gyroscope w/ noted decreased coordination of L vs R wrists. Opal would likely continue to benefit from outpatient OT to upgrade/add to current distal UE home exercise program, joint protection education/ discussion re: possible adaptive equipment/ compensatory strategies to support participation in meaningful activities, and to address bilateral hand/wrist pain and improve distal UE strength. Opal has verbalized concern of mild joint deformities of bilateral 2nd digits w/ mild medial rotation of L 2nd digit at PIPJ and ulnar tendencies of 2nd digits at PIPJ; thus, she may benefit from CHT evaluation to determine if night splints of the 2nd digits would be appropriate given that custom/made splints are not provided at this clinic. She reportedly is seeing GI specialist in June and is going to be seeing her firestop/containment worker in the near future given foot pain/ discomfort. Home Exercise Program 03/07/23 = Education re: paraffin bath for home modality use. Provided written /visual instructions for TB wrist strengthening. 02/21/23 = Provided with TB #2 for wrist strengthening exercises; instructed in resisted wrist ext, wrist flex , wrist RD, wrist UD, w/ rec 3 x 15 reps 3 x a week or every other day. 02/14/23 = Discussed utilization of spring loaded scissors. Instructed in isometric hold of 2-3 seconds w/ opposition w/ active flexion of digits 3-5 to discourage add at 2nd MPJs w/ thumb to 2nd digit opposition (3 x 10 reps). Instructed in self-myofascial release of thumb adductor w/ hold of 20- 30 sec x 2 total reps (alt thumbs) on daily basis. Instructed in alt modified prayer pose w/ use of wall w/ elbow ext; reviewed 20-30 sec hold. - Plan Therapy Recommendations Continue with Current Program, Advance per Rehabilitation Protocol Comment 8 weeks Frequency of Treatment Once a Week Therapeutic Contents Active Range of Motion, Adaptive Equipment Education, Client Education,Functional Activities,Home Exercise Program,Joint Protection, Manual Therapy,Education,Self- Care,Stretching/Flexibility Activities,Therapeutic Activities,Therapeutic Exercises,Modalities Modalities As Needed,As Prescribed Additional Types of Modalities Heat/Ice/Contrast Baths/ Paraffin/Ultrasound Electronically Signed by: Yesica Carrington OT 05/30/23 5519 If you are in agreement with this Plan of Care, please return a signed and dated copy. I have reviewed this Plan of Care and certify that the skilled therapy services above are required to meet the patient?s needs. Physician Signature Date Printed Name and Credentials Clinical Instructor Signature Printed Name and Credentials
--- NOTE | 2023-06-13 11:05 | OT.OP.TRT ---
Visit Care Team Role Provider Type George Garcia MD Family Provider Non-Staff Primary Care Provider Specialty: Internal Medicine Address: [address] [place], [address] Email: Kamala Cabral MD Attending Provider Non-Staff Referring Provider Specialty: Internal Medicine Address: [place], [address] Email: Occupational Therapy Treatment Note OT Outpatient Treatment Note - Adult Start: 02/14/23 10:35 Freq: Status: Active Protocol: Document 06/13/23 10:58 AMS (Rec: 06/13/23 11:05 [facility] [id number]) OT Outpatient Adult Treatment Note Session Time Visit Start Time 09:45 Visit Stop Time 10:28 Visit Information Plan of Care Dates 05/23/23 - 07/18/23 Insurance Information [facility]; pre-auth all visits Setting Treatment Setting Outpatient Care Visit Type Note Type Treatment Note General Information General Information Opal is a 68 year-old right hand dominant female referred to outpatient OT secondary to diagnosis of extensor tenosynovitis of the R wrist. 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 - Subjective Identification Type Name Identification Reconciled With Medical Record Observations Opal has theraband, gyroscope and flex bars at home that she is using; hot tub has not been used in the last couple of weeks d/t weather. 05/09/23 = Opal reported that she is seeing her GI specialist in June; she is continuing to monitor food intake. She is actively utilizing flex bars and the gyroscope in the home for strengthening. She reported primary difficulty w/ motor planning of L wrist in CCW direction in which she has no trouble w/ the R. Patient/Caregiver Compliance with Home Excellent Exercise Program - Objective Objective Measurements Please refer to below for progress towards meeting established OT goals: 02/28/23 = Typically forms fists when pushing up off of something. Short Term Goals 1. Opal will present with increased ability to engage in meaningful activities d/t bilateral increased wrist strength: 1a. MMT R wrist flex 4+/5 1b. MMT L wrist flex 4+/5 1c. MMT R wrist ext 4+/5 1d. MMT L wrist ext 4+/5 Senior Living Goals 1. Opal will be modified independent with distal UE home exercise program utilizing provided written and visual instructions from therapist. 05/30/23 = 75% met 2. Opal will verbalize 100% understanding of basic joint protection principles of the distal UEs referencing handout as needed. 3. Opal will present with increased ability to actively engage in meaningful activities as evidenced by the followina. Opal will obtain a QuickDASH UE Outcome Measure Score of 25.00 or less. = 47.73; versus initial 63. 64 3b. Opal will indicate 2 or less out of 10 on the Pain Assessment Grid relative to distal UEs. 05/30/23 = 75% met; 3 out of 10 versus initial 5 out of 10 - Treatment 1 Descriptor Paraffin bath. x 10 minutes. B distal UEs/hands/wrists. Treatment x 10 minutes. Skin was intact pre- and post- treatment. Exercises 8 Descriptor Red flexbar. Wrist/Forearm strengthening. Wrist flex/ext. 3 x 10. Red TB flexbar. Wrist flex/ext w/ forearm pronation. 4 x 10. Wrist flex/ext w/ forearm supination. 4 x 10. 6 Descriptor UEB x 10 minutes. Seated. Forwards direction. [address] and hold. Opposition of thumb and 2nd digit w/ use of tennis ball. x 5 sec hold. 1 x 10. 2 Descriptor ROM/Self-myofascial release/ Glides Self-myofascial thumb adductor release. Bilaterally executed . x 2. Passive wrist stretches. Passive wrist flex w/ elbow ext and forearm pronation. Passive wrist ext w/ elbow ext and forearm supination. Hold 20 sec. Bilaterally executed. Passive wrist stretches. Passive wrist RD w/ elbow ext and forearm pronation. Passive wrist UD w/ elbow ext and forearm pronation. Hold 20 sec . Bilaterally executed. Modified prayer pose to support MPJ ext of digits 2-5. x 4 each direction. Tendon glides. x 10 cycles. Bilaterally executed. - Assessment Assessment of Improvement Opal is using various colored personal flex bars in the home , gyroscope and theraband. Has not used hot tub recently d/t weather (past 2 weeks). She reports some difficulties with opening and/or manipulating containers/objects. Consider finger/hand strengthening vs compensatory vs adaptive equipment discussion based on feedback. Opal would likely continue to benefit from outpatient OT to upgrade/add to current distal UE home exercise program, joint protection education/ discussion re: possible adaptive equipment/ compensatory strategies to support participation in meaningful activities, and to address bilateral hand/wrist pain and improve distal UE strength. Opal has verbalized concern of mild joint deformities of bilateral 2nd digits w/ mild medial rotation of L 2nd digit at PIPJ and ulnar tendencies of 2nd digits at PIPJ; thus, she may benefit from CHT evaluation to determine if night splints of the 2nd digits would be appropriate given that custom/ made splints are not provided at this clinic. She reportedly is seeing GI specialist in June and is going to be seeing her lockstitch hemmer in the near future given foot pain/ discomfort. Home Exercise Program 03/07/23 = Education re: paraffin bath for home modality use. Provided written /visual instructions for TB wrist strengthening. 02/21/23 = Provided with TB #2 for wrist strengthening exercises; instructed in resisted wrist ext, wrist flex , wrist RD, wrist UD, w/ rec 3 x 15 reps 3 x wk or every other day. 02/14/23 = Discussed utilization of spring loaded scissors. Instructed in isometric hold of 2-3 seconds w/ opposition w/ active flexion of digits 3-5 to discourage add at 2nd MPJs w/ thumb to 2nd digit opposition (3 x 10 reps). Instructed in self-myofascial release of thumb adductor w/ hold of 20- 30 sec x 2 total reps (alt thumbs) on daily basis. Instructed in alt modified prayer pose w/ use of wall w/ elbow ext; reviewed 20-30 sec hold. - Plan Therapy Recommendations Continue with Current Program, Advance per Rehabilitation Protocol Modalities As Needed,As Prescribed Additional Types of Modalities Heat/Ice/Contrast Baths/ Paraffin/Ultrasound
--- NOTE | 2023-06-20 15:26 | OT.OP.TRT ---
Visit Care Team Role Provider Type George Garcia MD Family Provider Non-Staff Primary Care Provider Specialty: Internal Medicine Address: [address] [place], [address] Email: Kamala Cabral MD Attending Provider Non-Staff Referring Provider Specialty: Internal Medicine Address: [place], [address] Email: Occupational Therapy Treatment Note OT Outpatient Treatment Note - Adult Start: 02/14/23 10:35 Freq: Status: Active Protocol: Document 06/20/23 15:21 AMS (Rec: 06/20/23 15:26 AMS [id number]) OT Outpatient Adult Treatment Note Session Time Visit Start Time 09:45 Visit Stop Time 10:28 Visit Information Plan of Care Dates 05/23/23 - 07/18/23 Insurance Information [facility]; pre-auth all visits Setting Treatment Setting Outpatient Care Visit Type Note Type Treatment Note General Information General Information Opal is a 68 year-old right hand dominant female referred to outpatient OT secondary to diagnosis of extensor tenosynovitis of the R wrist. 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 - Subjective Identification Type Name Identification Reconciled With Medical Record Observations Opal has theraband, gyroscope and flex bars at home that she is using. 05/09/23 = Opal reported that she is seeing her GI specialist in June; she is continuing to monitor food intake. She is actively utilizing flex bars and the gyroscope in the home for strengthening. She reported primary difficulty w/ motor planning of L wrist in CCW direction in which she has no trouble w/ the R. Patient/Caregiver Compliance with Home Excellent Exercise Program - Objective Objective Measurements Please refer to below for progress towards meeting established OT goals: 02/28/23 = Typically forms fists when pushing up off of something. Short Term Goals 1. Opal will present with increased ability to engage in meaningful activities d/t bilateral increased wrist strength: 1a. MMT R wrist flex 4+/5 1b. MMT L wrist flex 4+/5 1c. MMT R wrist ext 4+/5 1d. MMT L wrist ext 4+/5 Residential Goals 1. Opal will be modified independent with distal UE home exercise program utilizing provided written and visual instructions from therapist. 05/30/23 = 75% met 2. Opal will verbalize 100% understanding of basic joint protection principles of the distal UEs referencing handout as needed. 3. Opal will present with increased ability to actively engage in meaningful activities as evidenced by the followina. Opal will obtain a QuickDASH UE Outcome Measure Score of 25.00 or less. = 47.73; versus initial 63. 64 3b. Opal will indicate 2 or less out of 10 on the Pain Assessment Grid relative to distal UEs. 05/30/23 = 75% met; 3 out of 10 versus initial 5 out of 10 - Treatment 1 Descriptor Paraffin bath. x 10 minutes. B distal UEs/hands/wrists. Treatment x 10 minutes. Skin was intact pre- and post- treatment. Exercises 8 Descriptor Red flexbar. Wrist/Forearm strengthening. Wrist flex/ext. 3 x 10. Wrist flex/ext w/ forearm supination. 2 x 10. Forearm supination. 3 x 10. Forearm pronation. 3 x 10. 6 Descriptor UEB x 10 minutes. Seated. Forwards direction. [address] and hold. Opposition of thumb and 2nd digit w/ use of tennis ball. x 5 sec hold. 1 x 10. - Assessment Assessment of Improvement Opal is using various colored personal flex bars in the home , gyroscope and theraband. She reports some difficulties with opening and/or manipulating containers/ objects, as well as difficulty using a cutter plastics rolls away from base of support given that she is in the process of making a blanket. Report of transitioning away from cutter plastics rolls to scissors when experiencing difficulties given that they were 'easier to use with cutting fabric'. Consider finger/hand strengthening vs compensatory vs adaptive equipment discussion based on feedback. Opal would likely continue to benefit from outpatient OT to upgrade/add to current distal UE home exercise program, joint protection education/ discussion re: possible adaptive equipment/ compensatory strategies to support participation in meaningful activities, and to address bilateral hand/wrist pain and improve distal UE strength. Opal has verbalized concern of mild joint deformities of bilateral 2nd digits w/ mild medial rotation of L 2nd digit at PIPJ and ulnar tendencies of 2nd digits at PIPJ; thus, she may benefit from CHT evaluation to determine if night splints of the 2nd digits would be appropriate given that custom/ made splints are not provided at this clinic. 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 Home Exercise Program 03/07/23 = Education re: paraffin bath for home modality use. Provided written /visual instructions for TB wrist strengthening. 02/21/23 = Provided with TB #2 for wrist strengthening exercises; instructed in resisted wrist ext, wrist flex , wrist RD, wrist UD, w/ rec 3 x 15 reps 3 x wk or every other day. 02/14/23 = Discussed utilization of spring loaded scissors. Instructed in isometric hold of 2-3 seconds w/ opposition w/ active flexion of digits 3-5 to discourage add at 2nd MPJs w/ thumb to 2nd digit opposition (3 x 10 reps). Instructed in self-myofascial release of thumb adductor w/ hold of 20- 30 sec x 2 total reps (alt thumbs) on daily basis. Instructed in alt modified prayer pose w/ use of wall w/ elbow ext; reviewed 20-30 sec hold. - Plan Therapy Recommendations Continue with Current Program, Advance per Rehabilitation Protocol Modalities As Needed,As Prescribed Additional Types of Modalities Heat/Ice/Contrast Baths/ Paraffin/Ultrasound
--- NOTE | 2023-06-27 12:17 | OT.OP.TRT ---
Visit Care Team Role Provider Type George Garcia MD Family Provider Non-Staff Primary Care Provider Specialty: Internal Medicine Address: [address] [place], [address] Email: Kamala Cabral MD Attending Provider Non-Staff Referring Provider Specialty: Internal Medicine Address: [address] [place] [address], [address] Email: Occupational Therapy Treatment Note OT Outpatient Treatment Note - Adult Start: 02/14/23 10:35 Freq: Status: Active Protocol: Document 06/27/23 12:14 AMS (Rec: 06/27/23 12:17 AMS [id number]) OT Outpatient Adult Treatment Note Session Time Visit Start Time 09:40 Visit Stop Time 10:25 Visit Information Plan of Care Dates 05/23/23 - 07/18/23 Insurance Information [facility]; pre-auth all visits Setting Treatment Setting Outpatient Care Visit Type Note Type Treatment Note General Information General Information Opal is a 68 year-old right hand dominant female referred to outpatient OT secondary to diagnosis of extensor tenosynovitis of the R wrist. 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 - Subjective Identification Type Name Identification Reconciled With Medical Record Observations No new concerns were reported. 05/09/23 = Opal reported that she is seeing her GI specialist in June; she is continuing to monitor food intake. She is actively utilizing flex bars and the gyroscope in the home for strengthening. She reported primary difficulty w/ motor planning of L wrist in CCW direction in which she has no trouble w/ the R. Patient/Caregiver Compliance with Home Excellent Exercise Program - Objective Objective Measurements Please refer to below for progress towards meeting established OT goals: 02/28/23 = Typically forms fists when pushing up off of something. Short Term Goals 1. Opal will present with increased ability to engage in meaningful activities d/t bilateral increased wrist strength: 1a. MMT R wrist flex 4+/5 1b. MMT L wrist flex 4+/5 1c. MMT R wrist ext 4+/5 1d. MMT L wrist ext 4+/5 Residential Treatment Staff Goals 1. Opal will be modified independent with distal UE home exercise program utilizing provided written and visual instructions from therapist. 05/30/23 = 75% met 2. Opal will verbalize 100% understanding of basic joint protection principles of the distal UEs referencing handout as needed. 3. Opal will present with increased ability to actively engage in meaningful activities as evidenced by the followina. Opal will obtain a QuickDASH UE Outcome Measure Score of 25.00 or less. = 47.73; versus initial 63. 64 3b. Opal will indicate 2 or less out of 10 on the Pain Assessment Grid relative to distal UEs. 05/30/23 = 75% met; 3 out of 10 versus initial 5 out of 10 - Treatment 1 Descriptor Paraffin bath. x 10 minutes. B distal UEs/hands/wrists. Treatment x 10 minutes. Skin was intact pre- and post- treatment. Exercises 8 Descriptor Red flexbar. Wrist/Forearm strengthening. Wrist flex/ext horizontal orientation of flex bar. 4 x 10. Wrist flex/ext vertical orientation of flex bar. 1 x 10. Wrist flex/ext w/ forearm supination. 3 x 10. Forearm supination. 3 x 10. Forearm pronation. 3 x 10. 6 Descriptor UEB x 10 minutes. Seated. Forwards direction. [address] and hold. Opposition of thumb and 2nd digit w/ use of tennis ball. x 5 sec hold. 1 x 10. - Assessment Assessment of Improvement Opal is using various colored personal flex bars in the home , gyroscope and theraband. Increased sets/repetitions w/ use of red flex bar in today's treatment session. Rec consideration of finger/hand strengthening vs compensatory vs adaptive equipment discussion based on feedback. Opal would likely continue to benefit from outpatient OT to upgrade/add to current distal UE home exercise program, joint protection education/ discussion re: possible adaptive equipment/ compensatory strategies to support participation in meaningful activities, and to address bilateral hand/wrist pain and improve distal UE strength. Opal has verbalized concern of mild joint deformities of bilateral 2nd digits w/ mild medial rotation of L 2nd digit at PIPJ and ulnar tendencies of 2nd digits at PIPJ; thus, she may benefit from CHT evaluation to determine if night splints of the 2nd digits would be appropriate given that custom/ made splints are not provided at this clinic. 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 Home Exercise Program 03/07/23 = Education re: paraffin bath for home modality use. Provided written /visual instructions for TB wrist strengthening. 02/21/23 = Provided with TB #2 for wrist strengthening exercises; instructed in resisted wrist ext, wrist flex , wrist RD, wrist UD, w/ rec 3 x 15 reps 3 x wk or every other day. 02/14/23 = Discussed utilization of spring loaded scissors. Instructed in isometric hold of 2-3 seconds w/ opposition w/ active flexion of digits 3-5 to discourage add at 2nd MPJs w/ thumb to 2nd digit opposition (3 x 10 reps). Instructed in self-myofascial release of thumb adductor w/ hold of 20- 30 sec x 2 total reps (alt thumbs) on daily basis. Instructed in alt modified prayer pose w/ use of wall w/ elbow ext; reviewed 20-30 sec hold. - Plan Therapy Recommendations Continue with Current Program, Advance per Rehabilitation Protocol Modalities As Needed,As Prescribed Additional Types of Modalities Heat/Ice/Contrast Baths/ Paraffin/Ultrasound
--- NOTE | 2023-07-04 16:00 | OT.OP.TRT ---
Visit Care Team Role Provider Type George Garcia MD Family Provider Non-Staff Primary Care Provider Specialty: Internal Medicine Address: [address] [place], [address] Email: Kamala Cabral MD Attending Provider Non-Staff Referring Provider Specialty: Internal Medicine Address: [address] [place] [address], [id number] Email: Occupational Therapy Treatment Note OT Outpatient Treatment Note - Adult Start: 02/14/23 10:35 Freq: Status: Active Protocol: Document 07/04/23 16:00 AMS (Rec: 07/05/23 09:32 AMS [id number]) OT Outpatient Adult Treatment Note Session Time Visit Start Time 12:15 Visit Stop Time 12:58 Visit Information Plan of Care Dates 05/23/23 - 07/18/23 Insurance Information [facility]; pre-auth all visits Setting Treatment Setting Outpatient Care Visit Type Note Type Treatment Note General Information General Information Opal is a 68 year-old right hand dominant female referred to outpatient OT secondary to diagnosis of extensor tenosynovitis of the R wrist. 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 - Subjective Identification Type Name Identification Reconciled With Medical Record Observations No new concerns were reported. 05/09/23 = Opal reported that she is seeing her GI specialist in June; she is continuing to monitor food intake. She is actively utilizing flex bars and the gyroscope in the home for strengthening. She reported primary difficulty w/ motor planning of L wrist in CCW direction in which she has no trouble w/ the R. Patient/Caregiver Compliance with Home Excellent Exercise Program - Objective Objective Measurements Please refer to below for progress towards meeting established OT goals: 02/28/23 = Typically forms fists when pushing up off of something. Short Term Goals 1. Opal will present with increased ability to engage in meaningful activities d/t bilateral increased wrist strength: 1a. MMT R wrist flex 4+/5 1b. MMT L wrist flex 4+/5 1c. MMT R wrist ext 4+/5 1d. MMT L wrist ext 4+/5 Vrt Mechanic Goals 1. Opal will be modified independent with distal UE home exercise program utilizing provided written and visual instructions from therapist. 05/30/23 = 75% met 2. Opal will verbalize 100% understanding of basic joint protection principles of the distal UEs referencing handout as needed. 3. Opal will present with increased ability to actively engage in meaningful activities as evidenced by the followina. Opal will obtain a QuickDASH UE Outcome Measure Score of 25.00 or less. = 47.73; versus initial 63. 64 3b. Opal will indicate 2 or less out of 10 on the Pain Assessment Grid relative to distal UEs. 05/30/23 = 75% met; 3 out of 10 versus initial 5 out of 10 - Treatment 1 Descriptor Paraffin bath. x 10 minutes. B distal UEs/hands/wrists. Treatment x 10 minutes. Skin was intact pre- and post- treatment. Exercises 8 Descriptor Red flexbar. Wrist/Forearm strengthening. Wrist flex/ext horizontal orientation of flex bar. 2 x 10. Wrist flex/ext vertical orientation of flex bar. 1 x 10. Wrist flex/ext w/ forearm supination. 1 x 10. Forearm supination. 1 x 10. Forearm pronation. 1 x 10. 6 Descriptor UEB x 10 minutes. Seated. Forwards direction. [address] and hold. Opposition of thumb and 2nd digit w/ use of tennis ball. x 5 sec hold. 1 x 10. - Assessment Assessment of Improvement Opal is using various colored personal flex bars in the home , gyroscope and theraband. Rec consideration of finger/hand strengthening vs compensatory vs adaptive equipment discussion based on feedback. Opal would likely continue to benefit from outpatient OT to upgrade/add to current distal UE home exercise program, joint protection education/ discussion re: possible adaptive equipment/ compensatory strategies to support participation in meaningful activities, and to address bilateral hand/wrist pain and improve distal UE strength. Opal has verbalized concern of mild joint deformities of bilateral 2nd digits w/ mild medial rotation of L 2nd digit at PIPJ and ulnar tendencies of 2nd digits at PIPJ; thus, she may benefit from CHT evaluation to determine if night splints of the 2nd digits would be appropriate given that custom/ made splints are not provided at this clinic. 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 Home Exercise Program 03/07/23 = Education re: paraffin bath for home modality use. Provided written /visual instructions for TB wrist strengthening. 02/21/23 = Provided with TB #2 for wrist strengthening exercises; instructed in resisted wrist ext, wrist flex , wrist RD, wrist UD, w/ rec 3 x 15 reps 3 x wk or every other day. 02/14/23 = Discussed utilization of spring loaded scissors. Instructed in isometric hold of 2-3 seconds w/ opposition w/ active flexion of digits 3-5 to discourage add at 2nd MPJs w/ thumb to 2nd digit opposition (3 x 10 reps). Instructed in self-myofascial release of thumb adductor w/ hold of 20- 30 sec x 2 total reps (alt thumbs) on daily basis. Instructed in alt modified prayer pose w/ use of wall w/ elbow ext; reviewed 20-30 sec hold. - Plan Therapy Recommendations Continue with Current Program, Advance per Rehabilitation Protocol Modalities As Needed,As Prescribed Additional Types of Modalities Heat/Ice/Contrast Baths/ Paraffin/Ultrasound
--- NOTE | 2023-07-11 16:00 | OT.OP.TRT ---
Visit Care Team Role Provider Type George Garcia MD Family Provider Non-Staff Primary Care Provider Specialty: Internal Medicine Address: [address] [place], [address] Email: Kamala Cabral MD Attending Provider Non-Staff Referring Provider Specialty: Internal Medicine Address: [place], [address] Email: Occupational Therapy Treatment Note OT Outpatient Treatment Note - Adult Start: 02/14/23 10:35 Freq: Status: Active Protocol: Document 07/11/23 16:00 AMS (Rec: 07/12/23 09:22 AMS [id number]) OT Outpatient Adult Treatment Note Session Time Visit Start Time 09:50 Visit Stop Time 10:35 Visit Information Plan of Care Dates 05/23/23 - 07/18/23 Insurance Information [facility]; pre-auth all visits Setting Treatment Setting Outpatient Care Visit Type Note Type Treatment Note General Information General Information Opal is a 68 year-old right hand dominant female referred to outpatient OT secondary to diagnosis of extensor tenosynovitis of the R wrist. 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 - Subjective Identification Type Name Identification Reconciled With Medical Record Observations Opal has the 4 different resistant flex bars in her home; she primarily is utilizing the red flex bar. She continues to use the gyroscope bilaterally for strengthening of the wrists and challenges herself to make wrist circles when it is moving 'really fast'. She continues to work with her PCP and specialists to address symptoms that are impacting her day-to-day life; she began to track the number of steps per day w/ marked uptrend (2-3 uptrending) but then had a day where she didn't feel ' like doing anything'. 05/09/23 = Opal reported that she is seeing her GI specialist in June; she is continuing to monitor food intake. She is actively utilizing flex bars and the gyroscope in the home for strengthening. She reported primary difficulty w/ motor planning of L wrist in CCW direction in which she has no trouble w/ the R. Patient/Caregiver Compliance with Home Excellent Exercise Program - Objective Objective Measurements Please refer to below for progress towards meeting established OT goals: 02/28/23 = Typically forms fists when pushing up off of something. Short Term Goals 1. Opal will present with increased ability to engage in meaningful activities d/t bilateral increased wrist strength: 1a. MMT R wrist flex 4+/5 1b. MMT L wrist flex 4+/5 1c. MMT R wrist ext 4+/5 1d. MMT L wrist ext 4+/5 Administrative Support Technician Goals 1. Opal will be modified independent with distal UE home exercise program utilizing provided written and visual instructions from therapist. 05/30/23 = 75% met 2. Opal will verbalize 100% understanding of basic joint protection principles of the distal UEs referencing handout as needed. 3. Opal will present with increased ability to actively engage in meaningful activities as evidenced by the followina. Opal will obtain a QuickDASH UE Outcome Measure Score of 25.00 or less. = 47.73; versus initial 63. 64 3b. Opal will indicate 2 or less out of 10 on the Pain Assessment Grid relative to distal UEs. 05/30/23 = 75% met; 3 out of 10 versus initial 5 out of 10 - Treatment 1 Descriptor Paraffin bath. x 10 minutes. B distal UEs/hands/wrists. Treatment x 10 minutes. Skin was intact pre- and post- treatment. Exercises 8 Descriptor Red flexbar. Wrist/Forearm strengthening. Wrist flex/ext horizontal orientation of flex bar. 2 x 10. Wrist flex/ext vertical orientation of flex bar. 1 x 10. Wrist flex/ext w/ forearm supination. 2 x 10. Wrist flex/ext w/ forearm pronation. 1 x 10. Forearm supination. 1 x 10. Forearm pronation. 1 x 10. 6 Descriptor UEB x 10 minutes. Seated. Forwards direction. [address] and hold. Opposition of thumb and 2nd digit w/ use of tennis ball. x 5 sec hold. 1 x 10. 2 Descriptor ROM/Self-myofascial release/ Glides Self-myofascial thumb adductor release. Bilaterally executed . x 2. Passive wrist stretches. Passive wrist flex w/ elbow ext and forearm pronation. Passive wrist ext w/ elbow ext and forearm supination. Hold 20 sec. Bilaterally executed. Passive wrist stretches. Passive wrist RD w/ elbow ext and forearm pronation. Passive wrist UD w/ elbow ext and forearm pronation. Hold 20 sec . Bilaterally executed. Modified prayer pose to support MPJ ext of digits 2-5. x 4 each direction. Tendon glides. x 5 cycles. Bilaterally executed. - Assessment Assessment of Improvement Opal has 4 different resistant flexbars in her home that she has access to; she is primarily utilizing the red flex bar, although, it is important to note that she is able to execute wrist flex/ext w/ flex bar also bent ('u' vs 'n') with reported increased difficulty executing wrist flex/ext w/ 'u' vs 'n'. She reports h/o use and familiarity w/ electric scissors and is looking to work on sewing of pot holders in the near future. Opal also continues to use gyroscope for wrist strengthening and cont to challenge herself w/ different exercises w/ the gyroscope. Rec consideration of finger/hand strengthening vs compensatory vs adaptive equipment discussion based on feedback. Opal would likely continue to benefit from outpatient OT to upgrade/add to current distal UE home exercise program, joint protection education/ discussion re: possible adaptive equipment/ compensatory strategies to support participation in meaningful activities, and to address bilateral hand/wrist pain and improve distal UE strength. Opal has verbalized concern of mild joint deformities of bilateral 2nd digits w/ mild medial rotation of L 2nd digit at PIPJ and ulnar tendencies of 2nd digits at PIPJ; thus, she may benefit from CHT evaluation to determine if night splints of the 2nd digits would be appropriate given that custom/ made splints are not provided at this clinic. She reportedly is seeing GI specialist in June and is going to be seeing her grinding machine operator in the near future given foot pain/ discomfort. Home Exercise Program 03/07/23 = Education re: paraffin bath for home modality use. Provided written /visual instructions for TB wrist strengthening. 02/21/23 = Provided with TB #2 for wrist strengthening exercises; instructed in resisted wrist ext, wrist flex , wrist RD, wrist UD, w/ rec 3 x 15 reps 3 x wk or every other day. 02/14/23 = Discussed utilization of spring loaded scissors. Instructed in isometric hold of 2-3 seconds w/ opposition w/ active flexion of digits 3-5 to discourage add at 2nd MPJs w/ thumb to 2nd digit opposition (3 x 10 reps). Instructed in self-myofascial release of thumb adductor w/ hold of 20- 30 sec x 2 total reps (alt thumbs) on daily basis. Instructed in alt modified prayer pose w/ use of wall w/ elbow ext; reviewed 20-30 sec hold. - Plan Therapy Recommendations Continue with Current Program, Advance per Rehabilitation Protocol Modalities As Needed,As Prescribed Additional Types of Modalities Heat/Ice/Contrast Baths/ Paraffin/Ultrasound
--- NOTE | 2023-07-18 16:00 | OT.OPPOC ---
Physical, Occupational & Speech Therapy At [facility] Opal Prince [id number] Visit Care Team Role Provider Type George Garcia MD Family Provider Non-Staff Primary Care Provider Address: [address] [place], [address] Kamala Cabral MD Attending Provider Non-Staff Referring Provider Address: [id number] [place] [address], [address] Occupational Therapy Plan of Care OT Outpatient Adult Evaluation Start: 02/14/23 10:35 Freq: Status: Active Protocol: Document 02/14/23 10:36 AMS (Rec: 02/14/23 11:25 AMS [id number]) General Information - Adult Visit Information Plan of Care Dates 02/14/23 - 04/11/23 Insurance Information [facility]; pre-auth all visits Session Time Visit Start Time 08:40 Visit Stop Time 09:25 Total Visit Minutes 45 Setting Treatment Setting Outpatient Care Visit Type Note Type Initial Evaluation Identification Identification Confirmed Yes Identification Confirmed By Self Goals Treatment Treatment Initiated home exercise program. Short Term Goals Short Term Goals 1. Opal will present with increased ability to engage in meaningful activities d/t bilateral increased wrist strength: 1a. MMT R wrist flex 4+/5 1b. MMT L wrist flex 4+/5 1c. MMT R wrist ext 4+/5 1d. MMT L wrist ext 4+/5 Long-Term Goals Cruise Coordinator Goals 1. Opal will be modified independent with distal UE home exercise program utilizing provided written and visual instructions from therapist. 2. Opal will verbalize 100% understanding of basic joint protection principles of the distal UEs referencing handout as needed. 3. Opal will present with increased ability to actively engage in meaningful activities as evidenced by the followina. Opal will obtain a QuickDASH UE Outcome Measure Score of 25.00 or less. 3b. Opal will indicate 2 or less out of 10 on the Pain Assessment Grid relative to distal UEs. Assessment/Plan Assessment Treatment Assessment Opal is a 68 year-old right hand dominant female referred to outpatient OT secondary to diagnosis of extensor tenosynovitis of the wrist. 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 Medical history is significant for arthritis, headaches, L TKR, asthma, thyroid disorder, TBI/concussion (1966), and removal of gall bladder. Opal also reported that she was diagnosed w/ RA in Apr . Med list to be scanned into EMR. She is taking meloxicam ( arthritis medication) and applying topical pain medication to wrists/hands; she is also taking tramadol as needed for pain management. She has multiple wrist braces that she has not worn for over a year; wears 2 different types of gloves to keep hands warm and utilizes personal hot tub. 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 Patient goals = maintain range of motion of hands. Opal indicated 5 out of 10 pain on the Hand/Wrist Pain Assessment Grid relative to volar/dorsal surfaces of bilateral wrists, bilateral dorsal 2nd/3rd digits, and volar bilateral 2nd/3rd digits w/ shading into the palms of hands. QuickDASH UE Outcome Measure Score = 63.64. (+) tenderness to palpation of bilateral CMCJs. (+) bilateral thumb adductor tightness. Able to oppose thumbs bilaterally to each digit pad w/ cueing to encourage flex at MP and IP of bilateral thumbs . Tendency into adduction of bilateral 2nd MPJs w/ tip-to- tip of thumb/2nd digits. ROM Measurements: 50 degrees active pain-free R wrist flex vs 60 degrees active pain-free L wrist flexion. 73 degrees active pain-free R wrist ext vs 68 degrees active pain-free L wrist ext. 15 degrees active pain-free R wrist RD and 15 degrees active pain- free L wrist RD. 26 degrees active pain-free R wrist UD vs 30 degrees active pain-free L wrist UD. Strength Findings: MMT R wrist flex 4/5 vs MMT L wrist flex 4/5. MMT R wrist ext 4/5 vs MMT L wrist ext 4/5. MMT R wrist RD 4+/5 vs MMT L wrist RD 4/5. MMT R wrist UD 4+/5 vs MMT L wrist UD 4/5. 27# of force R consumer loan processor (vs 49.6 +/- 9.7 when compared to 65-69 year- old female peers) 26# of force L consumer loan processor (vs 41.0 +/- 8.2 when compared to 65-69 year-old female peers) dynamometer II w / elbows in 90 degrees flex. 23# of force R consumer loan processor vs 30# of force L consumer loan processor dynamometer II w/ elbows extended. 8# of force R lateral pinch (vs 15.0 +/- 2 .6 when compared to 65-69 year -old female peers) 9# of force L lateral pinch (vs 14.3 +/- 2.8 when compared to 65-69 year-old female peers). 5# of force R tip pinch (vs 10.6 +/- 2.0 when compared to 65-69 year-old female peers) 6.5# of force L tip pinch (vs 10.5 +/ - 2.4 when compared to 65-69 year-old female peers). 6# of force R 3-jaw pinch (vs 14.2 + /- 3.1 when compared to 65-69 year-old female peers) 8# of force L 3-jaw pinch (vs 13.7 + /- 3.4 when compared to 65-69 year-old female peers). Currently Opal does daily opposition of digits, modified prayer pose for distal wrist/ finger range of motion. Opal would likely benefit from outpatient OT to upgrade/add to current distal UE home exercise program, joint protection education/ discussion re: possible adaptive equipment/ compensatory strategies to support participation in meaningful activities, and to address bilateral hand/wrist pain and improve distal UE strength. Home Exercise Program 02/14/23 = Discussed utilization of spring loaded scissors. Instructed in isometric hold of 2-3 seconds w/ opposition w/ active flexion of digits 3-5 to discourage add at 2nd MPJs w/ thumb to 2nd digit opposition (3 x 10 reps). Instructed in self-myofascial release of thumb adductor w/ hold of 20- 30 sec x 2 total reps (alt thumbs) on daily basis. Instructed in alt modified prayer pose w/ use of wall w/ elbow ext; reviewed 20-30 sec hold. Plan Length of treatment (weeks) 8 Plan of Care Start Date 02/14/23 Plan of Care End Date 04/11/23 Treatment Frequency Once a Week Therapeutic Contents Active Range of Motion, Adaptive Equipment Education, Client Education,Functional Activities,Home Exercise Program,Joint Protection, Manual Therapy,Education, Neurodevelopment Treatment, Neuromuscular Re-Education, Self-Care,Stretching/ Flexibility Activities, Therapeutic Activities, Therapeutic Exercises, Modalities Modalities As Needed,As Prescribed Additional Types of Modalities Heat/Ice/Contrast baths/US Functional Wrist/Hand Scan Hand Side Sensory Assessment Sensory Profile2 OT Outpatient Treatment Note - Adult Start: 02/14/23 10:35 Freq: Status: Active Protocol: Document 07/18/23 16:00 AMS (Rec: 07/19/23 14:59 AMS [id number]) OT Outpatient Adult Treatment Note Session Time Visit Start Time 09:45 Visit Stop Time 10:30 Visit Information Plan of Care Dates 07/18/23 - 08/29/23 Insurance Information [facility]; pre-auth all visits Setting Treatment Setting Outpatient Care Visit Type Note Type Progress Note General Information General Information Opal is a 68 year-old right hand dominant female referred to outpatient OT secondary to diagnosis of extensor tenosynovitis of the R wrist. 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 - Subjective Identification Type Name Identification Reconciled With Medical Record Observations Opal has resistant flex bars (4 different resistances) in her home; she is primarily utilizing the red flex bar. She continues to use the gyroscope bilaterally for strengthening of the wrists and challenges herself to make wrist circles when it is moving 'really fast'. She continues to work with her PCP and is seeing a new GI specialist w/ upcoming scheduled colonoscopy. 05/09/23 = Opal reported that she is seeing her GI specialist in June; she is continuing to monitor food intake. She is actively utilizing flex bars and the gyroscope in the home for strengthening. She reported primary difficulty w/ motor planning of L wrist in CCW direction in which she has no trouble w/ the R. Patient/Caregiver Compliance with Home Excellent Exercise Program - Objective Objective Measurements Please refer to below for progress towards meeting established OT goals: 02/28/23 = Typically forms fists when pushing up off of something. Short Term Goals 1. Opal will present with increased ability to engage in meaningful activities d/t bilateral increased wrist strength: 1a. MMT R wrist flex 4+/5 1b. MMT L wrist flex 4+/5 1c. MMT R wrist ext 4+/5 1d. MMT L wrist ext 4+/5 Long-Term Goals 1. Opal will be modified independent with distal UE home exercise program utilizing provided written and visual instructions from therapist. 05/30/23 = 75% met 2. Opal will verbalize 100% understanding of basic joint protection principles of the distal UEs referencing handout as needed. 3. Opal will present with increased ability to actively engage in meaningful activities as evidenced by the followina. Opal will obtain a QuickDASH UE Outcome Measure Score of 25.00 or less. = 47.73; versus initial 63. 64 3b. Opal will indicate 2 or less out of 10 on the Pain Assessment Grid relative to distal UEs. 05/30/23 = 75% met; 3 out of 10 versus initial 5 out of 10 - Treatment 1 Descriptor Paraffin bath. x 10 minutes. B distal UEs/hands/wrists. Treatment x 10 minutes. Skin was intact pre- and post- treatment. Exercises 8 Descriptor Red flexbar. Wrist/Forearm strengthening. Wrist flex/ext horizontal orientation of flex bar. 2 x 10. Wrist flex/ext vertical orientation of flex bar. 1 x 10. Wrist flex/ext w/ forearm supination. 2 x 10. Wrist flex/ext w/ forearm pronation. 1 x 10. Forearm supination. 1 x 10. Forearm pronation. 1 x 10. 6 Descriptor UEB x 10 minutes. Seated. Forwards direction. [address] and hold. Opposition of thumb and 2nd digit w/ use of tennis ball. x 5 sec hold. 1 x 10. 2 Descriptor ROM/Self-myofascial release/ Glides Self-myofascial thumb adductor release. Bilaterally executed . x 2. Passive wrist stretches. Passive wrist flex w/ elbow ext and forearm pronation. Passive wrist ext w/ elbow ext and forearm supination. Hold 20 sec. Bilaterally executed. Passive wrist stretches. Passive wrist RD w/ elbow ext and forearm pronation. Passive wrist UD w/ elbow ext and forearm pronation. Hold 20 sec . Bilaterally executed. Modified prayer pose to support MPJ ext of digits 2-5. x 4 each direction. Tendon glides. x 5 cycles. Bilaterally executed. - Assessment Assessment of Improvement Opal has 4 different resistant flexbars in her home that she has access to; she is primarily utilizing the red flex bar, although, it is important to note that she is able to execute wrist flex/ext w/ flex bar bent. She continues to utilize the gyroscope for wrist strengthening as well. Stiffness and weakness, as well as reported finger/hand discomfort continues to limit meaningful activities. She has experience w/ use of electric scissors which may be a good option to continue to support her sewing. Rec consideration of finger/hand strengthening vs compensatory vs adaptive equipment discussion based on feedback. Opal would likely continue to benefit from outpatient OT to upgrade/add to current distal UE home exercise program, joint protection education/ discussion re: possible adaptive equipment/ compensatory strategies to support participation in meaningful activities, and to address bilateral hand/wrist pain and improve distal UE strength. Opal has verbalized concern of mild joint deformities of bilateral 2nd digits w/ mild medial rotation of L 2nd digit at PIPJ and ulnar tendencies of 2nd digits at PIPJ; thus, she may benefit from CHT evaluation to determine if night splints of the 2nd digits would be appropriate given that custom/made splints are not provided at this clinic. Home Exercise Program 03/07/23 = Education re: paraffin bath for home modality use. Provided written /visual instructions for TB wrist strengthening. 02/21/23 = Provided with TB #2 for wrist strengthening exercises; instructed in resisted wrist ext, wrist flex , wrist RD, wrist UD, w/ rec 3 x 15 reps 3 x wk or every other day. 02/14/23 = Discussed utilization of spring loaded scissors. Instructed in isometric hold of 2-3 seconds w/ opposition w/ active flexion of digits 3-5 to discourage add at 2nd MPJs w/ thumb to 2nd digit opposition (3 x 10 reps). Instructed in self-myofascial release of thumb adductor w/ hold of 20- 30 sec x 2 total reps (alt thumbs) on daily basis. Instructed in alt modified prayer pose w/ use of wall w/ elbow ext; reviewed 20-30 sec hold. - Plan Therapy Recommendations Advance per Rehabilitation Protocol Comment 6 weeks Frequency of Treatment Once a Week Therapeutic Contents Active Range of Motion, Adaptive Equipment Education, Functional Activities,Home Exercise Program,Joint Protection,Manual Therapy, Education,Self-Care,Stretching /Flexibility Activities, Therapeutic Activities, Therapeutic Exercises, Modalities Modalities As Needed,As Prescribed Additional Types of Modalities Heat/Ice/Contrast Baths/ Paraffin/Ultrasound Electronically Signed by: Yesica Carrington, OT 07/19/23 9276 If you are in agreement with this Plan of Care, please return a signed and dated copy. I have reviewed this Plan of Care and certify that the skilled therapy services above are required to meet the patient?s needs. Physician Signature Date Printed Name and Credentials Clinical Instructor Signature Printed Name and Credentials
--- NOTE | 2023-07-25 13:23 | OT.OP.TRT ---
Visit Care Team Role Provider Type George Garcia MD Family Provider Non-Staff Primary Care Provider Specialty: Internal Medicine Address: [address] [place], [address] Email: Kamala Cabral MD Attending Provider Non-Staff Referring Provider Specialty: Internal Medicine Address: [place], [address] Email: Occupational Therapy Treatment Note OT Outpatient Treatment Note - Adult Start: 02/14/23 10:35 Freq: Status: Active Protocol: Document 07/25/23 13:17 AMS (Rec: 07/25/23 13:23 AMS [id number]) OT Outpatient Adult Treatment Note Session Time Visit Start Time 09:45 Visit Stop Time 10:28 Visit Information Plan of Care Dates 07/18/23 - 08/29/23 Insurance Information [facility]; pre-auth all visits Setting Treatment Setting Outpatient Care Visit Type Note Type Treatment Note General Information General Information Opal is a 68 year-old right hand dominant female referred to outpatient OT secondary to diagnosis of extensor tenosynovitis of the R wrist. 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 - Subjective Identification Type Name Identification Reconciled With Medical Record Observations Opal has resistant flex bars (4 different resistances) in her home; she is primarily utilizing the red flex bar. She continues to use the gyroscope bilaterally for strengthening of the wrists and challenges herself to make wrist circles when it is moving 'really fast'. Opal reports that she is leaving for [place] this weekend to see family. 05/09/23 = Opal reported that she is seeing her GI specialist in June; she is continuing to monitor food intake. She is actively utilizing flex bars and the gyroscope in the home for strengthening. She reported primary difficulty w/ motor planning of L wrist in CCW direction in which she has no trouble w/ the R. Patient/Caregiver Compliance with Home Excellent Exercise Program - Objective Objective Measurements Please refer to below for progress towards meeting established OT goals: 02/28/23 = Typically forms fists when pushing up off of something. Short Term Goals 1. Opal will present with increased ability to engage in meaningful activities d/t bilateral increased wrist strength: 1a. MMT R wrist flex 4+/5 1b. MMT L wrist flex 4+/5 1c. MMT R wrist ext 4+/5 1d. MMT L wrist ext 4+/5 Shelter Goals 1. Opal will be modified independent with distal UE home exercise program utilizing provided written and visual instructions from therapist. 05/30/23 = 75% met 2. Opal will verbalize 100% understanding of basic joint protection principles of the distal UEs referencing handout as needed. 3. Opal will present with increased ability to actively engage in meaningful activities as evidenced by the followina. Opal will obtain a QuickDASH UE Outcome Measure Score of 25.00 or less. = 47.73; versus initial 63. 64 3b. Opal will indicate 2 or less out of 10 on the Pain Assessment Grid relative to distal UEs. 05/30/23 = 75% met; 3 out of 10 versus initial 5 out of 10 - Treatment 1 Descriptor Paraffin bath. x 10 minutes. B distal UEs/hands/wrists. Treatment x 10 minutes. Skin was intact pre- and post- treatment. Exercises 8 Descriptor Red flexbar. Wrist/Forearm strengthening. Wrist flex/ext horizontal orientation of flex bar. 4 x 10. Wrist flex/ext vertical orientation of flex bar. 1 x 10. Wrist flex/ext w/ forearm supination. 1 x 10. Forearm supination. 1 x 10. Forearm pronation. 1 x 10. N/A 07/25/23 = Wrist flex/ext w/ forearm pronation. 1 x 5. 6 Descriptor UEB x 10 minutes. Seated. Forwards direction. [address] and hold. Opposition of thumb and 2nd digit w/ use of tennis ball. x 5 sec hold. 1 x 10. 2 Descriptor ROM/Self-myofascial release/ Glides Self-myofascial thumb adductor release. Bilaterally executed . x 2. Passive wrist stretches. Passive wrist flex w/ elbow ext and forearm pronation. Passive wrist ext w/ elbow ext and forearm supination. Hold 20 sec. Bilaterally executed. Passive wrist stretches. Passive wrist RD w/ elbow ext and forearm pronation. Passive wrist UD w/ elbow ext and forearm pronation. Hold 20 sec . Bilaterally executed. N/A 07/25/23 Modified prayer pose to support MPJ ext of digits 2-5. x 4 each direction. Tendon glides. x 5 cycles. Bilaterally executed. - Assessment Assessment of Improvement Stiffness and weakness, as well as reported finger/hand discomfort continues to limit meaningful activities. Rec consideration of finger/hand strengthening vs compensatory vs adaptive equipment discussion given availability of gyroscope and flex bars, and theraband in the home for strengthening. Could also trial dowel w/ attached weight for wrist strengthening option. Opal would likely continue to benefit from outpatient OT to upgrade/add to current distal UE home exercise program, joint protection education/ discussion re: possible adaptive equipment/ compensatory strategies to support participation in meaningful activities, and to address bilateral hand/wrist pain and improve distal UE strength. Opal has verbalized concern of mild joint deformities of bilateral 2nd digits w/ mild medial rotation of L 2nd digit at PIPJ and ulnar tendencies of 2nd digits at PIPJ; thus, she may benefit from CHT evaluation to determine if night splints of the 2nd digits would be appropriate given that custom/made splints are not provided at this clinic. Home Exercise Program 03/07/23 = Education re: paraffin bath for home modality use. Provided written /visual instructions for TB wrist strengthening. 02/21/23 = Provided with TB #2 for wrist strengthening exercises; instructed in resisted wrist ext, wrist flex , wrist RD, wrist UD, w/ rec 3 x 15 reps 3 x wk or every other day. 02/14/23 = Discussed utilization of spring loaded scissors. Instructed in isometric hold of 2-3 seconds w/ opposition w/ active flexion of digits 3-5 to discourage add at 2nd MPJs w/ thumb to 2nd digit opposition (3 x 10 reps). Instructed in self-myofascial release of thumb adductor w/ hold of 20- 30 sec x 2 total reps (alt thumbs) on daily basis. Instructed in alt modified prayer pose w/ use of wall w/ elbow ext; reviewed 20-30 sec hold. - Plan Therapy Recommendations Advance per Rehabilitation Protocol Modalities As Needed,As Prescribed Additional Types of Modalities Heat/Ice/Contrast Baths/ Paraffin/Ultrasound
--- NOTE | 2023-08-08 15:27 | OT.OP.TRT ---
Visit Care Team Role Provider Type George Garcia MD Family Provider Non-Staff Primary Care Provider Specialty: Internal Medicine Address: [address] [place], [address] Email: Kamala Cabral MD Attending Provider Non-Staff Referring Provider Specialty: Internal Medicine Address: [place], [address] Email: Occupational Therapy Treatment Note OT Outpatient Treatment Note - Adult Start: 02/14/23 10:35 Freq: Status: Active Protocol: Document 08/08/23 15:13 AMS (Rec: 08/08/23 15:26 AMS [id number]) OT Outpatient Adult Treatment Note Session Time Visit Start Time 09:45 Visit Stop Time 10:28 Visit Information Visit Number [id number] Plan of Care Dates 07/18/23 - 08/29/23 Insurance Information [facility]; *Auth x 15 visits as of 06/19/23 Setting Treatment Setting Outpatient Care Visit Type Note Type Treatment Note General Information General Information Opal is a 68 year-old right hand dominant female referred to outpatient OT secondary to diagnosis of extensor tenosynovitis of the R wrist. 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 - Subjective Identification Type Name Identification Reconciled With Medical Record Observations Opal has resistant flex bars (4 different resistances) in her home; she is primarily utilizing the red flex bar. She continues to use the gyroscope bilaterally for strengthening of the wrists and challenges herself to make wrist circles when it is moving 'really fast'. No new changes were reported since previous treatment session. 05/09/23 = pOal reported that she is seeing her GI specialist in June; she is continuing to monitor food intake. She is actively utilizing flex bars and the gyroscope in the home for strengthening. She reported primary difficulty w/ motor planning of L wrist in CCW direction in which she has no trouble w/ the R. Patient/Caregiver Compliance with Home Excellent Exercise Program - Objective Objective Measurements Please refer to below for progress towards meeting established OT goals: 02/28/23 = Typically forms fists when pushing up off of something. Short Term Goals 1. Opal will present with increased ability to engage in meaningful activities d/t bilateral increased wrist strength: 1a. MMT R wrist flex 4+/5 1b. MMT L wrist flex 4+/5 1c. MMT R wrist ext 4+/5 1d. MMT L wrist ext 4+/5 Chcf Goals 1. Opal will be modified independent with distal UE home exercise program utilizing provided written and visual instructions from therapist. 05/30/23 = 75% met 2. Opal will verbalize 100% understanding of basic joint protection principles of the distal UEs referencing handout as needed. 3. Opal will present with increased ability to actively engage in meaningful activities as evidenced by the followina. Opal will obtain a QuickDASH UE Outcome Measure Score of 25.00 or less. = 47.73; versus initial 63. 64 3b. Opal will indicate 2 or less out of 10 on the Pain Assessment Grid relative to distal UEs. 05/30/23 = 75% met; 3 out of 10 versus initial 5 out of 10 - Treatment 1 Descriptor Paraffin bath. x 10 minutes. B distal UEs/hands/wrists. Treatment x 10 minutes. Skin was intact pre- and post- treatment. Exercises 8 Descriptor Red flexbar. Wrist/Forearm strengthening. Wrist flex/ext horizontal orientation of flex bar. 4 x 10. Wrist flex/ext w/ forearm supination. 2 x 10. Forearm supination. 1 x 10. Forearm pronation. 1 x 10. N/A 07/25/23 = Wrist flex/ext w/ forearm pronation. 1 x 5. 6 Descriptor UEB x 10 minutes. Seated. Forwards direction. 2 Descriptor ROM/Self-myofascial release/ Glides Self-myofascial thumb adductor release. Bilaterally executed . x 2. Modified prayer pose to support MPJ ext of digits 2-5. x 4 each direction. N/A 07/25/23 Tendon glides. x 5 cycles. Bilaterally executed. Passive wrist stretches. Passive wrist flex w/ elbow ext and forearm pronation. Passive wrist ext w/ elbow ext and forearm supination. Hold 20 sec. Bilaterally executed. Passive wrist stretches. Passive wrist RD w/ elbow ext and forearm pronation. Passive wrist UD w/ elbow ext and forearm pronation. Hold 20 sec . Bilaterally executed. - Assessment Assessment of Improvement Inquired about scheduling; per insurance notes, as of , insurance authorized x 15 visits. Today was the 7th visit out of 15. Will need to review/convey this information to Opal at time of next treatment session. 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 No other concerns were reported since previous treatment session. Did cook/bake and do laundry while visiting her family/2 grandkids. Rec consideration of finger/hand strengthening vs compensatory vs adaptive equipment discussion given availability of gyroscope and flex bars, and theraband in the home for strengthening. Could also trial dowel w/ attached weight for wrist strengthening option. Opal would likely continue to benefit from outpatient OT to upgrade/add to current distal UE home exercise program, joint protection education/ discussion re: possible adaptive equipment/ compensatory strategies to support participation in meaningful activities, and to address bilateral hand/wrist pain and improve distal UE strength. Opal has verbalized concern of mild joint deformities of bilateral 2nd digits w/ mild medial rotation of L 2nd digit at PIPJ and ulnar tendencies of 2nd digits at PIPJ; thus, she may benefit from CHT evaluation to determine if night splints of the 2nd digits would be appropriate given that custom/made splints are not provided at this clinic. Home Exercise Program 03/07/23 = Education re: paraffin bath for home modality use. Provided written /visual instructions for TB wrist strengthening. 02/21/23 = Provided with TB #2 for wrist strengthening exercises; instructed in resisted wrist ext, wrist flex , wrist RD, wrist UD, w/ rec 3 x 15 reps 3 x wk or every other day. 02/14/23 = Discussed utilization of spring loaded scissors. Instructed in isometric hold of 2-3 seconds w/ opposition w/ active flexion of digits 3-5 to discourage add at 2nd MPJs w/ thumb to 2nd digit opposition (3 x 10 reps). Instructed in self-myofascial release of thumb adductor w/ hold of 20- 30 sec x 2 total reps (alt thumbs) on daily basis. Instructed in alt modified prayer pose w/ use of wall w/ elbow ext; reviewed 20-30 sec hold. - Plan Therapy Recommendations Advance per Rehabilitation Protocol Modalities As Needed,As Prescribed Additional Types of Modalities Heat/Ice/Contrast Baths/ Paraffin/Ultrasound
--- NOTE | 2023-08-15 16:00 | OT.OP.TRT ---
Visit Care Team Role Provider Type George Garcia MD Family Provider Non-Staff Primary Care Provider Specialty: Internal Medicine Address: [address] [place], [address] Email: Kamala Cabral MD Attending Provider Non-Staff Referring Provider Specialty: Internal Medicine Address: [address] [place] [address], [id number] Email: Occupational Therapy Treatment Note OT Outpatient Treatment Note - Adult Start: 02/14/23 10:35 Freq: Status: Active Protocol: Document 08/15/23 16:00 AMS (Rec: 08/17/23 13:45 AMS [id number]) OT Outpatient Adult Treatment Note Session Time Visit Start Time 09:45 Visit Stop Time 10:28 Visit Information Visit Number [id number] Plan of Care Dates 07/18/23 - 08/29/23 Insurance Information [facility]; *Auth x 15 visits as of 06/19/23 Setting Treatment Setting Outpatient Care Visit Type Note Type Treatment Note General Information General Information Opal is a 68 year-old right hand dominant female referred to outpatient OT secondary to diagnosis of extensor tenosynovitis of the R wrist. 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 - Subjective Identification Type Name Identification Reconciled With Medical Record Observations She continues to primarily use the gyroscope bilaterally for strengthening of the wrists. She also exercises her wrists/ hands by doing things around the home. She presents wearing a boot on the distal R foot; she reportedly has to wear it d/t tendon injury. 08/15/23 = Opal reported that she has a new GI MD; No significant findings in most recent colonoscopy. She is continuing to monitor food intake. Social history = has 2 grandchildren in [place] ( grandson and granddaughter); also has 2 grandsons. Patient/Caregiver Compliance with Home Excellent Exercise Program - Objective Objective Measurements Please refer to below for progress towards meeting established OT goals: 02/28/23 = Typically forms fists when pushing up off of something. Short Term Goals 1. Opal will present with increased ability to engage in meaningful activities d/t bilateral increased wrist strength: 1a. MMT R wrist flex 4+/5 1b. MMT L wrist flex 4+/5 1c. MMT R wrist ext 4+/5 1d. MMT L wrist ext 4+/5 Custodial Goals 1. Opal will be modified independent with distal UE home exercise program utilizing provided written and visual instructions from therapist. 05/30/23 = 75% met 2. Opal will verbalize 100% understanding of basic joint protection principles of the distal UEs referencing handout as needed. 3. Opal will present with increased ability to actively engage in meaningful activities as evidenced by the followina. Opal will obtain a QuickDASH UE Outcome Measure Score of 25.00 or less. = 47.73; versus initial 63. 64 3b. Opal will indicate 2 or less out of 10 on the Pain Assessment Grid relative to distal UEs. 05/30/23 = 75% met; 3 out of 10 versus initial 5 out of 10 - Treatment 1 Descriptor Paraffin bath. x 10 minutes. B distal UEs/hands/wrists. Treatment x 10 minutes. Skin was intact pre- and post- treatment. Exercises 8 Descriptor Wrist/Forearm strengthening. Wrist flex/ext horizontal orientation of flex bar. Red flex bar. 5 x 10. Wrist flex/ext w/ forearm supination. Red flex bar. 2 x 10. Forearm supination. Red flex bar. 1 x 10. Wrist flex/ext w/ blue flex bar. 2 x 10. N/A 07/25/23 = Wrist flex/ext w/ forearm pronation. 1 x 5. 6 Descriptor UEB x 10 minutes. Seated. Forwards direction. 2 Descriptor ROM/Self-myofascial release/ Glides Self-myofascial thumb adductor release. Bilaterally executed . x 2. Modified prayer pose to support MPJ ext of digits 2-5. x 4 each direction. N/A 07/25/23 Tendon glides. x 5 cycles. Bilaterally executed. Passive wrist stretches. Passive wrist flex w/ elbow ext and forearm pronation. Passive wrist ext w/ elbow ext and forearm supination. Hold 20 sec. Bilaterally executed. Passive wrist stretches. Passive wrist RD w/ elbow ext and forearm pronation. Passive wrist UD w/ elbow ext and forearm pronation. Hold 20 sec . Bilaterally executed. - Assessment Assessment of Improvement Inquired about scheduling; per insurance notes, as of , insurance authorized x 15 visits. Today was the 8th visit out of 15. Able to complete 2 sets of 10 reps B wrist flex/ext w/ blue flex bar positioned horizontally. Trialed twisting of red flex bar w/ hands on either end w/ flex bar positioned vertically ; pain reported in R second digit. Thus, ceased this exercise. Rec consideration of finger/hand strengthening vs compensatory vs adaptive equipment discussion given availability of gyroscope and flex bars, and theraband in the home for strengthening. Could also trial dowel w/ attached weight for wrist strengthening option. Opal would likely continue to benefit from outpatient OT to upgrade/add to current distal UE home exercise program, joint protection education/ discussion re: possible adaptive equipment/ compensatory strategies to support participation in meaningful activities, and to address bilateral hand/wrist pain and improve distal UE strength. Opal has verbalized concern of mild joint deformities of bilateral 2nd digits w/ mild medial rotation of L 2nd digit at PIPJ and ulnar tendencies of 2nd digits at PIPJ; thus, she may benefit from CHT evaluation to determine if night splints of the 2nd digits would be appropriate given that custom/made splints are not provided at this clinic. Home Exercise Program 03/07/23 = Education re: paraffin bath for home modality use. Provided written /visual instructions for TB wrist strengthening. 02/21/23 = Provided with TB #2 for wrist strengthening exercises; instructed in resisted wrist ext, wrist flex , wrist RD, wrist UD, w/ rec 3 x 15 reps 3 x wk or every other day. 02/14/23 = Discussed utilization of spring loaded scissors. Instructed in isometric hold of 2-3 seconds w/ opposition w/ active flexion of digits 3-5 to discourage add at 2nd MPJs w/ thumb to 2nd digit opposition (3 x 10 reps). Instructed in self-myofascial release of thumb adductor w/ hold of 20- 30 sec x 2 total reps (alt thumbs) on daily basis. Instructed in alt modified prayer pose w/ use of wall w/ elbow ext; reviewed 20-30 sec hold. - Plan Therapy Recommendations Advance per Rehabilitation Protocol Modalities As Needed,As Prescribed Additional Types of Modalities Heat/Ice/Contrast Baths/ Paraffin/Ultrasound
--- NOTE | 2023-08-29 16:00 | OT.OPPOC ---
Physical, Occupational & Speech Therapy At [facility] Opal Prince [id number] Visit Care Team Role Provider Type George Garcia MD Family Provider Non-Staff Primary Care Provider Address: [address] [place], [address] Kamala Cabral MD Attending Provider Non-Staff Referring Provider Address: [id number] [place] [address], [address] Occupational Therapy Plan of Care OT Outpatient Adult Evaluation Start: 02/14/23 10:35 Freq: Status: Active Protocol: Document 02/14/23 10:36 AMS (Rec: 02/14/23 11:25 AMS [id number]) General Information - Adult Visit Information Plan of Care Dates 02/14/23 - 04/11/23 Insurance Information [facility]; pre-auth all visits Session Time Visit Start Time 08:40 Visit Stop Time 09:25 Total Visit Minutes 45 Setting Treatment Setting Outpatient Care Visit Type Note Type Initial Evaluation Identification Identification Confirmed Yes Identification Confirmed By Self Goals Treatment Treatment Initiated home exercise program. Short Term Goals Short Term Goals 1. Opal will present with increased ability to engage in meaningful activities d/t bilateral increased wrist strength: 1a. MMT R wrist flex 4+/5 1b. MMT L wrist flex 4+/5 1c. MMT R wrist ext 4+/5 1d. 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 Opal will be modified independent with distal UE home exercise program utilizing provided written and visual instructions from therapist. 2. Opal will verbalize 100% understanding of basic joint protection principles of the distal UEs referencing handout as needed. 3. Opal will present with increased ability to actively engage in meaningful activities as evidenced by the followina. Opal will obtain a QuickDASH UE Outcome Measure Score of 25.00 or less. 3b. Opal will indicate 2 or less out of 10 on the Pain Assessment Grid relative to distal UEs. Assessment/Plan Assessment Treatment Assessment Opal is a 68 year-old right hand dominant female referred to outpatient OT secondary to diagnosis of extensor tenosynovitis of the wrist. 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 Medical history is significant for arthritis, headaches, L TKR, asthma, thyroid disorder, TBI/concussion (1966), and removal of gall bladder. Opal also reported that she was diagnosed w/ RA in Apr . Med list to be scanned into EMR. She is taking meloxicam ( arthritis medication) and applying topical pain medication to wrists/hands; she is also taking tramadol as needed for pain management. She has multiple wrist braces that she has not worn for over a year; wears 2 different types of gloves to keep hands warm and utilizes personal hot tub. 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 Patient goals = maintain range of motion of hands. Opal indicated 5 out of 10 pain on the Hand/Wrist Pain Assessment Grid relative to volar/dorsal surfaces of bilateral wrists, bilateral dorsal 2nd/3rd digits, and volar bilateral 2nd/3rd digits w/ shading into the palms of hands. QuickDASH UE Outcome Measure Score = 63.64. (+) tenderness to palpation of bilateral CMCJs. (+) bilateral thumb adductor tightness. Able to oppose thumbs bilaterally to each digit pad w/ cueing to encourage flex at MP and IP of bilateral thumbs . Tendency into adduction of bilateral 2nd MPJs w/ tip-to- tip of thumb/2nd digits. ROM Measurements: 50 degrees active pain-free R wrist flex vs 60 degrees active pain-free L wrist flexion. 73 degrees active pain-free R wrist ext vs 68 degrees active pain-free L wrist ext. 15 degrees active pain-free R wrist RD and 15 degrees active pain- free L wrist RD. 26 degrees active pain-free R wrist UD vs 30 degrees active pain-free L wrist UD. Strength Findings: MMT R wrist flex 4/5 vs MMT L wrist flex 4/5. MMT R wrist ext 4/5 vs MMT L wrist ext 4/5. MMT R wrist RD 4+/5 vs MMT L wrist RD 4/5. MMT R wrist UD 4+/5 vs MMT L wrist UD 4/5. 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 23# of force R senior tax accountant vs 30# of force L senior tax accountant dynamometer II w/ elbows extended. 8# of force R lateral pinch (vs 15.0 +/- 2 .6 when compared to 65-69 year -old female peers) 9# of force L lateral pinch (vs 14.3 +/- 2.8 when compared to 65-69 year-old female peers). 5# of force R tip pinch (vs 10.6 +/- 2.0 when compared to 65-69 year-old female peers) 6.5# of force L tip pinch (vs 10.5 +/ - 2.4 when compared to 65-69 year-old female peers). 6# of force R 3-jaw pinch (vs 14.2 + /- 3.1 when compared to 65-69 year-old female peers) 8# of force L 3-jaw pinch (vs 13.7 + /- 3.4 when compared to 65-69 year-old female peers). Currently Opal does daily opposition of digits, modified prayer pose for distal wrist/ finger range of motion. Opal would likely benefit from outpatient OT to upgrade/add to current distal UE home exercise program, joint protection education/ discussion re: possible adaptive equipment/ compensatory strategies to support participation in meaningful activities, and to address bilateral hand/wrist pain and improve distal UE strength. Home Exercise Program 02/14/23 = Discussed utilization of spring loaded scissors. Instructed in isometric hold of 2-3 seconds w/ opposition w/ active flexion of digits 3-5 to discourage add at 2nd MPJs w/ thumb to 2nd digit opposition (3 x 10 reps). Instructed in self-myofascial release of thumb adductor w/ hold of 20- 30 sec x 2 total reps (alt thumbs) on daily basis. Instructed in alt modified prayer pose w/ use of wall w/ elbow ext; reviewed 20-30 sec hold. Plan Length of treatment (weeks) 8 Plan of Care Start Date 02/14/23 Plan of Care End Date 04/11/23 Treatment Frequency Once a Week Therapeutic Contents Active Range of Motion, Adaptive Equipment Education, Client Education,Functional Activities,Home Exercise Program,Joint Protection, Manual Therapy,Education, Neurodevelopment Treatment, Neuromuscular Re-Education, Self-Care,Stretching/ Flexibility Activities, Therapeutic Activities, Therapeutic Exercises, Modalities Modalities As Needed,As Prescribed Additional Types of Modalities Heat/Ice/Contrast baths/US Functional Wrist/Hand Scan Hand Side Sensory Assessment Sensory Profile2 OT Outpatient Treatment Note - Adult Start: 02/14/23 10:35 Freq: Status: Active Protocol: Document 08/29/23 16:00 AMS (Rec: 08/30/23 09:29 AMS [id number]) OT Outpatient Adult Treatment Note Session Time Visit Start Time 09:45 Visit Stop Time 10:28 Visit Information Visit Number 02/[id number] Plan of Care Dates 08/29/23 - 10/10/23 Insurance Information [facility]; *Auth x 15 visits as of 06/19/23 Setting Treatment Setting Outpatient Care Visit Type Note Type Progress Note General Information General Information Opal is a 68 year-old right hand dominant female referred to outpatient OT secondary to diagnosis of extensor tenosynovitis of the R wrist. 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 - Subjective Identification Type Name Identification Reconciled With Medical Record Observations Opal reports use of flexbars and gyroscope at home. (+) wearing R boot d/t tendon injury w/ wearing schedule x 2 more weeks (or dependent upon MD) which would by the 11 of September. 08/15/23 = Opal reported that she has a new GI MD; No significant findings in most recent colonoscopy. She is continuing to monitor food intake. Social history = has 2 grandchildren in [place] ( grandson and granddaughter); also has 2 grandsons. Patient/Caregiver Compliance with Home Excellent Exercise Program - Objective Objective Measurements Please refer to below for progress towards meeting established OT goals: 02/28/23 = Typically forms fists when pushing up off of something. Short Term Goals 1. Opal will present with increased ability to engage in meaningful activities d/t bilateral increased wrist strength: 1a. MMT R wrist flex 4+/5 1b. MMT L wrist flex 4+/5 1c. MMT R wrist ext 4+/5 1d. MMT L wrist ext 4+/5 Longterm Goals 1. Opal will be modified independent with distal UE home exercise program utilizing provided written and visual instructions from therapist. 05/30/23 = 75% met 2. Opal will present with increased ability to actively engage in meaningful activities as evidenced by the followina. Opal will obtain a QuickDASH UE Outcome Measure Score of 25.00 or less. = 47.73; versus initial 63. 64 2b. Opal will indicate 2 or less out of 10 on the Pain Assessment Grid relative to distal UEs. 05/30/23 = 75% met; 3 out of 10 versus initial 5 out of 10 GOALS MET (+) understanding of basic joint protection principles of the distal UEs referencing handouts provided. *MET - Treatment 1 Descriptor Paraffin bath. x 10 minutes. B distal UEs/hands/wrists. Treatment x 10 minutes. Skin was intact pre- and post- treatment. Exercises 8 Descriptor Wrist/Forearm strengthening. Wrist flex/ext horizontal orientation of flex bar. Red flex bar. 5 x 10. Wrist flex/ext w/ forearm supination. Red flex bar. 1 x 10. Forearm supination. Red flex bar. 1 x 10. N/A 08/29/23 Wrist flex/ext w/ blue flex bar. 2 x 10. Wrist flex/ext w/ forearm pronation. 1 x 5. 6 Descriptor UEB x 10 minutes. Seated. Forwards direction. 2 Descriptor ROM/Self-myofascial release/ Glides Self-myofascial thumb adductor release. Bilaterally executed . x 2. Modified prayer pose to support MPJ ext of digits 2-5. x 4 each direction. Passive wrist stretches. Passive wrist flex w/ elbow ext and forearm pronation. Passive wrist ext w/ elbow ext and forearm supination. Hold 20 sec. Bilaterally executed. Passive wrist stretches. Passive wrist RD w/ elbow ext and forearm pronation. Passive wrist UD w/ elbow ext and forearm pronation. Hold 20 sec . Bilaterally executed. Isometric functional 'c'. x 2 each. N/A 07/25/23 Tendon glides. x 5 cycles. Bilaterally executed. - Assessment Assessment of Improvement Opal was provided w/ handout on basic joint protection principles and handout on use of functional 'c' or 'o' versus pinch. Per insurance notes, as of 06/19/23, insurance authorized x 15 visits. Today was the 9th visit out of 15. 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 She plans on scheduling a follow- up appointment for the near future. Rec consideration of finger/hand strengthening vs compensatory vs adaptive equipment discussion given availability of gyroscope and flex bars, and theraband in the home for strengthening. Could also trial dowel w/ attached weight for wrist strengthening option. Opal would likely continue to benefit from outpatient OT to upgrade/add to current distal UE home exercise program, joint protection education/ discussion re: possible adaptive equipment/ compensatory strategies to support participation in meaningful activities, and to address bilateral hand/wrist pain and improve distal UE strength. Opal has verbalized concern of mild joint deformities of bilateral 2nd digits w/ mild medial rotation of L 2nd digit at PIPJ and ulnar tendencies of 2nd digits at PIPJ; thus, she may benefit from CHT evaluation to determine if night splints of the 2nd digits would be appropriate given that custom/ made splints are not provided at this clinic. Home Exercise Program 08/29/23 = Handout on basic joint protection principles; handout of use of functional ' c' or 'o' vs pinch. 03/07/23 = Education re: paraffin bath for home modality use. Provided written /visual instructions for TB wrist strengthening. 02/21/23 = Provided with TB #2 for wrist strengthening exercises; instructed in resisted wrist ext, wrist flex , wrist RD, wrist UD, w/ rec 3 x 15 reps 3 x wk or every other day. 02/14/23 = Discussed utilization of spring loaded scissors. Instructed in isometric hold of 2-3 seconds w/ opposition w/ active flexion of digits 3-5 to discourage add at 2nd MPJs w/ thumb to 2nd digit opposition (3 x 10 reps). Instructed in self-myofascial release of thumb adductor w/ hold of 20- 30 sec x 2 total reps (alt thumbs) on daily basis. Instructed in alt modified prayer pose w/ use of wall w/ elbow ext; reviewed 20-30 sec hold. - Plan Therapy Recommendations Advance per Rehabilitation Protocol Comment 6 weeks Frequency of Treatment Once a Week Therapeutic Contents Active Range of Motion, Adaptive Equipment Education, Client Education,Functional Activities,Home Exercise Program,Joint Protection, Manual Therapy,Education,Self- Care,Stretching/Flexibility Activities,Therapeutic Activities,Therapeutic Exercises,Modalities Modalities As Needed,As Prescribed Additional Types of Modalities Heat/Ice/Contrast Baths/ Paraffin/Ultrasound Electronically Signed by: Yesica Carrington OT 08/30/23 0929 If you are in agreement with this Plan of Care, please return a signed and dated copy. I have reviewed this Plan of Care and certify that the skilled therapy services above are required to meet the patient?s needs. Physician Signature Date Printed Name and Credentials Clinical Instructor Signature Printed Name and Credentials
--- NOTE | 2023-09-04 11:57 | OT.OP.TRT ---
Visit Care Team Role Provider Type George Garcia MD Family Provider Non-Staff Primary Care Provider Specialty: Internal Medicine Address: [address] [place], [address] Email: Kamala Cabral MD Attending Provider Non-Staff Referring Provider Specialty: Internal Medicine Address: [place], [address] Email: Occupational Therapy Treatment Note OT Outpatient Treatment Note - Adult Start: 02/14/23 10:35 Freq: Status: Active Protocol: Document 09/04/23 11:52 AMS (Rec: 09/04/23 11:55 AMS [id number]) OT Outpatient Adult Treatment Note Session Time Visit Start Time 09:45 Visit Stop Time 10:28 Visit Information Visit Number 03/04 Plan of Care Dates 08/29/23 - 10/10/23 Insurance Information [facility]; *Auth x 15 visits as of 06/19/23 Setting Treatment Setting Outpatient Care Visit Type Note Type Treatment Note General Information General Information Opal is a 68 year-old right hand dominant female referred to outpatient OT secondary to diagnosis of extensor tenosynovitis of the R wrist. 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 - Subjective Identification Type Name Identification Reconciled With Medical Record Observations Report of bilateral elbow/hand /wrist soreness. (+) wearing R boot d/t tendon injury w/ wearing schedule x 1 more week (or dependent upon MD) which would by the 11 of September. 08/15/23 = Opal reported that she has a new GI MD; No significant findings in most recent colonoscopy. She is continuing to monitor food intake. Social history = has 2 grandchildren in [place] ( grandson and granddaughter); also has 2 grandsons. Patient/Caregiver Compliance with Home Excellent Exercise Program - Objective Objective Measurements Please refer to below for progress towards meeting established OT goals: 02/28/23 = Typically forms fists when pushing up off of something. Short Term Goals 1. Opal will present with increased ability to engage in meaningful activities d/t bilateral increased wrist strength: 1a. MMT R wrist flex 4+/5 1b. MMT L wrist flex 4+/5 1c. MMT R wrist ext 4+/5 1d. 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 Opal will be modified independent with distal UE home exercise program utilizing provided written and visual instructions from therapist. 05/30/23 = 75% met 2. Opal will present with increased ability to actively engage in meaningful activities as evidenced by the followina. Opal will obtain a QuickDASH UE Outcome Measure Score of 25.00 or less. = 47.73; versus initial 63. 64 2b. Opal will indicate 2 or less out of 10 on the Pain Assessment Grid relative to distal UEs. 05/30/23 = 75% met; 3 out of 10 versus initial 5 out of 10 GOALS MET (+) understanding of basic joint protection principles of the distal UEs referencing handouts provided. *MET - Treatment 1 Descriptor Paraffin bath. x 10 minutes. B distal UEs/hands/wrists. Treatment x 10 minutes. Skin was intact pre- and post- treatment. Exercises 8 Descriptor Wrist/Forearm strengthening. Wrist flex/ext horizontal orientation of flex bar. Red flex bar. 3 x 10. Wrist flex/ext w/ forearm supination. Red flex bar. 1 x 10. N/A 08/29/23 Wrist flex/ext w/ blue flex bar. 2 x 10. Wrist flex/ext w/ forearm pronation. 1 x 5. 6 Descriptor UEB x 10 minutes. Seated. Forwards direction. 2 Descriptor ROM/Self-myofascial release/ Glides Self-myofascial thumb adductor release. Bilaterally executed . x 2. Modified prayer pose to support MPJ ext of digits 2-5. x 4 each direction. Passive wrist stretches. Passive wrist flex w/ elbow ext and forearm pronation. Passive wrist ext w/ elbow ext and forearm supination. Hold 20 sec. Bilaterally executed. Passive wrist stretches. Passive wrist RD w/ elbow ext and forearm pronation. Passive wrist UD w/ elbow ext and forearm pronation. Hold 20 sec . Bilaterally executed. Isometric functional 'c'. x 5 bilaterally. N/A 07/25/23 Tendon glides. x 5 cycles. Bilaterally executed. - Assessment Assessment of Improvement Per insurance notes, as of , insurance authorized x 15 visits. Today was the 10th visit out of 15. 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 Rec consideration of finger/hand strengthening vs compensatory vs adaptive equipment discussion given availability of gyroscope and flex bars, and theraband in the home for strengthening. Given report of bilateral hand/wrist pain/ discomfort did not trial dowel wrist strengthening exercise; increased focus on range of motion/stretching/manual work/ isometric strengthening. Opal would likely continue to benefit from outpatient OT to upgrade/add to current distal UE home exercise program, joint protection education/ discussion re: possible adaptive equipment/ compensatory strategies to support participation in meaningful activities, and to address bilateral hand/wrist pain and improve distal UE strength. Opal has verbalized concern of mild joint deformities of bilateral 2nd digits w/ mild medial rotation of L 2nd digit at PIPJ and ulnar tendencies of 2nd digits at PIPJ; thus, she may benefit from CHT evaluation to determine if night splints of the 2nd digits would be appropriate given that custom/ made splints are not provided at this clinic. Home Exercise Program 08/29/23 = Handout on basic joint protection principles; handout of use of functional ' c' or 'o' vs pinch. 03/07/23 = Education re: paraffin bath for home modality use. Provided written /visual instructions for TB wrist strengthening. 02/21/23 = Provided with TB #2 for wrist strengthening exercises; instructed in resisted wrist ext, wrist flex , wrist RD, wrist UD, w/ rec 3 x 15 reps 3 x wk or every other day. 02/14/23 = Discussed utilization of spring loaded scissors. Instructed in isometric hold of 2-3 seconds w/ opposition w/ active flexion of digits 3-5 to discourage add at 2nd MPJs w/ thumb to 2nd digit opposition (3 x 10 reps). Instructed in self-myofascial release of thumb adductor w/ hold of 20- 30 sec x 2 total reps (alt thumbs) on daily basis. Instructed in alt modified prayer pose w/ use of wall w/ elbow ext; reviewed 20-30 sec hold. - Plan Therapy Recommendations Advance per Rehabilitation Protocol Modalities As Needed,As Prescribed Additional Types of Modalities Heat/Ice/Contrast Baths/ Paraffin/Ultrasound
--- NOTE | 2023-09-12 15:55 | OT.OP.TRT ---
Visit Care Team Role Provider Type George Garcia MD Family Provider Non-Staff Primary Care Provider Specialty: Internal Medicine Address: [address] [place], [address] Email: Kamala Cabral MD Attending Provider Non-Staff Referring Provider Specialty: Internal Medicine Address: [place], [address] Email: Occupational Therapy Treatment Note OT Outpatient Treatment Note - Adult Start: 02/14/23 10:35 Freq: Status: Active Protocol: Document 09/12/23 15:51 AMS (Rec: 09/12/23 15:55 AMS [id number]) OT Outpatient Adult Treatment Note Session Time Visit Start Time 14:30 Visit Stop Time 15:15 Visit Information Visit Number 04/04 Plan of Care Dates 08/29/23 - 10/10/23 Insurance Information [facility]; *Auth x 15 visits as of 06/19/23 Setting Treatment Setting Outpatient Care Visit Type Note Type Treatment Note General Information General Information Opal is a 68 year-old right hand dominant female referred to outpatient OT secondary to diagnosis of extensor tenosynovitis of the R wrist. 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 - Subjective Identification Type Name Identification Reconciled With Medical Record Observations Report of R elbow/hand/wrist soreness (versus bilateral). ( +) wearing R boot d/t tendon injury w/ wearing schedule x 4 more weeks per MD. Scheduled to have follow-up appointment with space systems operations craftsman on October 10. 08/15/23 = Opal reported that she has a new GI MD; No significant findings in most recent colonoscopy. She is continuing to monitor food intake. Social history = has 2 grandchildren in [place] ( grandson and granddaughter); also has 2 grandsons. Patient/Caregiver Compliance with Home Excellent Exercise Program - Objective Objective Measurements Please refer to below for progress towards meeting established OT goals: 02/28/23 = Typically forms fists when pushing up off of something. Short Term Goals 1. Opal will present with increased ability to engage in meaningful activities d/t bilateral increased wrist strength: 1a. MMT R wrist flex 4+/5 1b. MMT L wrist flex 4+/5 1c. MMT R wrist ext 4+/5 1d. MMT L wrist ext 4+/5 Correction Goals 1. Opal will be modified independent with distal UE home exercise program utilizing provided written and visual instructions from therapist. 05/30/23 = 75% met 2. Opal will present with increased ability to actively engage in meaningful activities as evidenced by the followina. Opal will obtain a QuickDASH UE Outcome Measure Score of 25.00 or less. = 47.73; versus initial 63. 64 2b. Opal will indicate 2 or less out of 10 on the Pain Assessment Grid relative to distal UEs. 05/30/23 = 75% met; 3 out of 10 versus initial 5 out of 10 GOALS MET (+) understanding of basic joint protection principles of the distal UEs referencing handouts provided. *MET - Treatment 1 Descriptor Paraffin bath. x 10 minutes. B distal UEs/hands/wrists. Treatment x 10 minutes. Skin was intact pre- and post- treatment. Exercises 8 Descriptor Wrist/Forearm strengthening. Wrist flex/ext horizontal orientation of flex bar. Red flex bar. 3 x 10. Wrist flex/ext w/ forearm supination. Red flex bar. 3 x 10. Wrist flex/ext w/ forearm pronation. 1 x 5. N/A 08/29/23 Wrist flex/ext w/ blue flex bar. 2 x 10. 2 Descriptor ROM/Self-myofascial release/ Glides Self-myofascial thumb adductor release. Bilaterally executed . x 2. Modified prayer pose to support MPJ ext of digits 2-5. x 4 each direction. 20 sec hold. Passive wrist stretches. Passive wrist flex w/ elbow ext and forearm pronation. Passive wrist ext w/ elbow ext and forearm supination. Hold 20 sec. Bilaterally executed. Passive wrist stretches. Passive wrist RD w/ elbow ext and forearm pronation. Passive wrist UD w/ elbow ext and forearm pronation. Hold 20 sec . Bilaterally executed. Isometric functional 'c'. x 5 bilaterally. N/A 07/25/23 Tendon glides. x 5 cycles. Bilaterally executed. - Assessment Assessment of Improvement Per insurance notes, as of , insurance authorized x 15 visits. Today was the 11th visit out of 15. Has follow-up appt w/ space systems operations craftsman the 10 of October. Has been instructed to wear boot x 4 more weeks. Rec consideration of finger/hand strengthening vs compensatory vs adaptive equipment discussion given availability of gyroscope and flex bars, and theraband in the home for strengthening. Rec consider dowel exercise based on presenting symptoms. Opal would likely continue to benefit from outpatient OT to upgrade/add to current distal UE home exercise program, joint protection education/ discussion re: possible adaptive equipment/ compensatory strategies to support participation in meaningful activities, and to address bilateral hand/wrist pain and improve distal UE strength. Opal has verbalized concern of mild joint deformities of bilateral 2nd digits w/ mild medial rotation of L 2nd digit at PIPJ and ulnar tendencies of 2nd digits at PIPJ; thus, she may benefit from CHT evaluation to determine if night splints of the 2nd digits would be appropriate given that custom/ made splints are not provided at this clinic. Home Exercise Program 08/29/23 = Handout on basic joint protection principles; handout of use of functional ' c' or 'o' vs pinch. 03/07/23 = Education re: paraffin bath for home modality use. Provided written /visual instructions for TB wrist strengthening. 02/21/23 = Provided with TB #2 for wrist strengthening exercises; instructed in resisted wrist ext, wrist flex , wrist RD, wrist UD, w/ rec 3 x 15 reps 3 x wk or every other day. 02/14/23 = Discussed utilization of spring loaded scissors. Instructed in isometric hold of 2-3 seconds w/ opposition w/ active flexion of digits 3-5 to discourage add at 2nd MPJs w/ thumb to 2nd digit opposition (3 x 10 reps). Instructed in self-myofascial release of thumb adductor w/ hold of 20- 30 sec x 2 total reps (alt thumbs) on daily basis. Instructed in alt modified prayer pose w/ use of wall w/ elbow ext; reviewed 20-30 sec hold. - Plan Therapy Recommendations Advance per Rehabilitation Protocol Modalities As Needed,As Prescribed Additional Types of Modalities Heat/Ice/Contrast Baths/ Paraffin/Ultrasound
--- NOTE | 2023-09-25 11:24 | OT.OP.DC ---
Visit Care Team Role Provider Type George Garcia MD Family Provider Non-Staff Primary Care Provider Address: [address] [place] [address], [address] Email: Kamala Cabral MD Attending Provider Non-Staff Referring Provider Address: [address] [place] [address] [place], [address] Email: OT Outpatient OT Outpatient Adult Evaluation Start: 02/14/23 10:35 Freq: Status: Active Protocol: Document 02/14/23 10:36 AMS (Rec: 02/14/23 11:25 AMS [id number]) General Information - Adult Visit Information Plan of Care Dates 02/14/23 - 04/11/23 Insurance Information [facility]; pre-auth all visits Session Time Visit Start Time 08:40 Visit Stop Time 09:25 Total Visit Minutes 45 Setting Treatment Setting Outpatient Care Visit Type Note Type Initial Evaluation Identification Identification Confirmed Yes Identification Confirmed By Self Goals Treatment Treatment Initiated home exercise program. Short Term Goals Short Term Goals 1. Opal will present with increased ability to engage in meaningful activities d/t bilateral increased wrist strength: 1a. MMT R wrist flex 4+/5 1b. MMT L wrist flex 4+/5 1c. MMT R wrist ext 4+/5 1d. 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 Opal will be modified independent with distal UE home exercise program utilizing provided written and visual instructions from therapist. 2. Opal will verbalize 100% understanding of basic joint protection principles of the distal UEs referencing handout as needed. 3. Opal will present with increased ability to actively engage in meaningful activities as evidenced by the followina. Opal will obtain a QuickDASH UE Outcome Measure Score of 25.00 or less. 3b. Opal will indicate 2 or less out of 10 on the Pain Assessment Grid relative to distal UEs. Assessment/Plan Assessment Treatment Assessment Opal is a 68 year-old right hand dominant female referred to outpatient OT secondary to diagnosis of extensor tenosynovitis of the wrist. 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 Medical history is significant for arthritis, headaches, L TKR, asthma, thyroid disorder, TBI/concussion (1966), and removal of gall bladder. Opal also reported that she was diagnosed w/ RA in Apr . Med list to be scanned into EMR. She is taking meloxicam ( arthritis medication) and applying topical pain medication to wrists/hands; she is also taking tramadol as needed for pain management. She has multiple wrist braces that she has not worn for over a year; wears 2 different types of gloves to keep hands warm and utilizes personal hot tub. 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 Patient goals = maintain range of motion of hands. Opal indicated 5 out of 10 pain on the Hand/Wrist Pain Assessment Grid relative to volar/dorsal surfaces of bilateral wrists, bilateral dorsal 2nd/3rd digits, and volar bilateral 2nd/3rd digits w/ shading into the palms of hands. QuickDASH UE Outcome Measure Score = 63.64. (+) tenderness to palpation of bilateral CMCJs. (+) bilateral thumb adductor tightness. Able to oppose thumbs bilaterally to each digit pad w/ cueing to encourage flex at MP and IP of bilateral thumbs . Tendency into adduction of bilateral 2nd MPJs w/ tip-to- tip of thumb/2nd digits. ROM Measurements: 50 degrees active pain-free R wrist flex vs 60 degrees active pain-free L wrist flexion. 73 degrees active pain-free R wrist ext vs 68 degrees active pain-free L wrist ext. 15 degrees active pain-free R wrist RD and 15 degrees active pain- free L wrist RD. 26 degrees active pain-free R wrist UD vs 30 degrees active pain-free L wrist UD. Strength Findings: MMT R wrist flex 4/5 vs MMT L wrist flex 4/5. MMT R wrist ext 4/5 vs MMT L wrist ext 4/5. MMT R wrist RD 4+/5 vs MMT L wrist RD 4/5. MMT R wrist UD 4+/5 vs MMT L wrist UD 4/5. 27# of force R attorney law clerk (vs 49.6 +/- 9.7 when compared to 65-69 year- old female peers) 26# of force L attorney law clerk (vs 41.0 +/- 8.2 when compared to 65-69 year-old female peers) dynamometer II w / elbows in 90 degrees flex. 23# of force R attorney law clerk vs 30# of force L attorney law clerk dynamometer II w/ elbows extended. 8# of force R lateral pinch (vs 15.0 +/- 2 .6 when compared to 65-69 year -old female peers) 9# of force L lateral pinch (vs 14.3 +/- 2.8 when compared to 65-69 year-old female peers). 5# of force R tip pinch (vs 10.6 +/- 2.0 when compared to 65-69 year-old female peers) 6.5# of force L tip pinch (vs 10.5 +/ - 2.4 when compared to 65-69 year-old female peers). 6# of force R 3-jaw pinch (vs 14.2 + /- 3.1 when compared to 65-69 year-old female peers) 8# of force L 3-jaw pinch (vs 13.7 + /- 3.4 when compared to 65-69 year-old female peers). Currently Opal does daily opposition of digits, modified prayer pose for distal wrist/ finger range of motion. Opal would likely benefit from outpatient OT to upgrade/add to current distal UE home exercise program, joint protection education/ discussion re: possible adaptive equipment/ compensatory strategies to support participation in meaningful activities, and to address bilateral hand/wrist pain and improve distal UE strength. Home Exercise Program 02/14/23 = Discussed utilization of spring loaded scissors. Instructed in isometric hold of 2-3 seconds w/ opposition w/ active flexion of digits 3-5 to discourage add at 2nd MPJs w/ thumb to 2nd digit opposition (3 x 10 reps). Instructed in self-myofascial release of thumb adductor w/ hold of 20- 30 sec x 2 total reps (alt thumbs) on daily basis. Instructed in alt modified prayer pose w/ use of wall w/ elbow ext; reviewed 20-30 sec hold. Plan Length of treatment (weeks) 8 Plan of Care Start Date 02/14/23 Plan of Care End Date 04/11/23 Treatment Frequency Once a Week Therapeutic Contents Active Range of Motion, Adaptive Equipment Education, Client Education,Functional Activities,Home Exercise Program,Joint Protection, Manual Therapy,Education, Neurodevelopment Treatment, Neuromuscular Re-Education, Self-Care,Stretching/ Flexibility Activities, Therapeutic Activities, Therapeutic Exercises, Modalities Modalities As Needed,As Prescribed Additional Types of Modalities Heat/Ice/Contrast baths/US Functional Wrist/Hand Scan Hand Side Sensory Assessment Sensory Profile2 OT Outpatient Treatment Note - Adult Start: 02/14/23 10:35 Freq: Status: Active Protocol: Document 09/25/23 11:10 AMS (Rec: 09/25/23 11:24 [facility] [id number]) OT Outpatient Adult Treatment Note Session Time Visit Start Time 14:30 Visit Stop Time 15:15 Visit Information Visit Number 05/04 Plan of Care Dates 08/29/23 - 10/10/23 Insurance Information [facility]; *Auth x 15 visits as of 06/19/23 Setting Treatment Setting Outpatient Care Visit Type Note Type Treatment Note General Information General Information Opal is a 68 year-old right hand dominant female referred to outpatient OT secondary to diagnosis of extensor tenosynovitis of the R wrist. 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 - Subjective Identification Type Name Identification Reconciled With Medical Record Observations Scheduled to have follow-up appointment with marble cleaner on October 10. 08/15/23 = Opal reported that she has a new GI MD; No significant findings in most recent colonoscopy. She is continuing to monitor food intake. Social history = has 2 grandchildren in [place] ( grandson and granddaughter); also has 2 grandsons. Patient/Caregiver Compliance with Home Excellent Exercise Program - Objective Objective Measurements Please refer to below for progress towards meeting established OT goals: 02/28/23 = Typically forms fists when pushing up off of something. Short Term Goals ALL GOALS D/C 09/25/23 1. Opal will present with increased ability to engage in meaningful activities d/t bilateral increased wrist strength: 1a. MMT R wrist flex 4+/5 1b. MMT L wrist flex 4+/5 1c. MMT R wrist ext 4+/5 1d. MMT L wrist ext 4+/5 Detention Goals GOALS MET (+) understanding of basic joint protection principles of the distal UEs referencing handouts provided. *MET Opal will be modified independent with distal UE home exercise program utilizing provided written and visual instructions from therapist.*MET 09/25/23 GOALS D/C 09/25/23 1. Opal will present with increased ability to actively engage in meaningful activities as evidenced by the followina. Opal will obtain a QuickDASH UE Outcome Measure Score of 25.00 or less. = 47.73; versus initial 63. 64 1b. Opal will indicate 2 or less out of 10 on the Pain Assessment Grid relative to distal UEs. 05/30/23 = 75% met; 3 out of 10 versus initial 5 out of 10 - Treatment 1 Descriptor Paraffin bath. x 10 minutes. B distal UEs/hands/wrists. Treatment x 10 minutes. Skin was intact pre- and post- treatment. Exercises 8 Descriptor Wrist/Forearm strengthening. Wrist flex/ext horizontal orientation of flex bar. Red flex bar. 3 x 10. Wrist flex/ext w/ forearm supination. Red flex bar. 3 x 10. Wrist flex/ext w/ forearm pronation. 1 x 5. N/A 08/29/23 Wrist flex/ext w/ blue flex bar. 2 x 10. 2 Descriptor ROM/Self-myofascial release/ Glides Self-myofascial thumb adductor release. Bilaterally executed . x 2. Modified prayer pose to support MPJ ext of digits 2-5. x 4 each direction. 20 sec hold. Passive wrist stretches. Passive wrist flex w/ elbow ext and forearm pronation. Passive wrist ext w/ elbow ext and forearm supination. Hold 20 sec. Bilaterally executed. Passive wrist stretches. Passive wrist RD w/ elbow ext and forearm pronation. Passive wrist UD w/ elbow ext and forearm pronation. Hold 20 sec . Bilaterally executed. Isometric functional 'c'. x 5 bilaterally. N/A 07/25/23 Tendon glides. x 5 cycles. Bilaterally executed. - Assessment Assessment of Improvement Opal is modified independent with her home exercise program ; she will be following up with her marble cleaner on the of this month. Recommend d/c from outpatient OT at this time and therapist to re- evaluate as deemed appropriate by PCP w/ receipt of new referral. Home Exercise Program 08/29/23 = Handout on basic joint protection principles; handout of use of functional ' c' or 'o' vs pinch. 03/07/23 = Education re: paraffin bath for home modality use. Provided written /visual instructions for TB wrist strengthening. 02/21/23 = Provided with TB #2 for wrist strengthening exercises; instructed in resisted wrist ext, wrist flex , wrist RD, wrist UD, w/ rec 3 x 15 reps 3 x wk or every other day. 02/14/23 = Discussed utilization of spring loaded scissors. Instructed in isometric hold of 2-3 seconds w/ opposition w/ active flexion of digits 3-5 to discourage add at 2nd MPJs w/ thumb to 2nd digit opposition (3 x 10 reps). Instructed in self-myofascial release of thumb adductor w/ hold of 20- 30 sec x 2 total reps (alt thumbs) on daily basis. Instructed in alt modified prayer pose w/ use of wall w/ elbow ext; reviewed 20-30 sec hold. - Plan Therapy Recommendations Advance per Rehabilitation Protocol Modalities As Needed,As Prescribed Additional Types of Modalities Heat/Ice/Contrast Baths/ Paraffin/Ultrasound
== END 2023-09-26 09:32 ==
LOC: OT 09:45
PROVIDERS: Family Provider Internal Medicine; PCP Internal Medicine; Referring Provider Internal Medicine; Visit Provider Internal Medicine
DX: M65.839 Other synovitis and tenosynovitis, unspecified forearm (principal); R53.1 Weakness
CPT/HCPCS: 97018; 97110; 97165

== ENCOUNTER → 2023-12-27 14:22 | Outpatient (CLI) | payer OTHER, SELFPAY | PROVIDERS: Family Provider Internal Medicine; PCP Internal Medicine; Visit Provider Physician Assistant Medical | DX: R39.9 Unspecified symptoms and signs involving the genitourinary system (principal) | CPT/HCPCS: 87077; 87086; 87186 ==

== ENCOUNTER → 2024-07-06 11:30 | Outpatient (CLI) | payer OTHER, SELFPAY | PROVIDERS: Family Provider Internal Medicine; PCP Internal Medicine; Visit Provider Registered Nurse | DX: R35.0 Frequency of micturition (principal); R30.0 Dysuria | CPT/HCPCS: 87077; 87086; 87186 ==